=== PATIENT | male | born 1940 | race Caucasian/White ===

== ENCOUNTER 2017-12-20 12:10 | Inpatient (IN) | payer OTHER, BC ==
--- NOTE | 2017-12-20 12:23 | PDOC ---
History of Present Illness - General History Source: Patient Exam Limitations: No Limitations - History of Present Illness Initial Comments: 12/20/17 12:37 77 year old male with PMH CAD, CABG (single vessel - 09/2017), HTN, HLD, DM, blood clots, CVA (09/22/2010), presenting for dyspnea on exertion since today. Pt states he was walking to get a glass of water today at home, and felt SOB. Denies chest pain, palpitations, fever, chills, nausea, vomiting, weakness, numbness, tingling, headache. Allergies - NKDA Daughter - Ofelia David - [phone] primary family contact and caregiver Daughter - Demi David - [phone] PCP - Dr. Frost - [phone] <Adela Penn - Last Filed: 12/20/17 18:59> <Chelsie Hay - Last Filed: 12/20/17 20:11> - General Stated Complaint: SOB Time Seen by Provider: 12/20/17 12:14 Past History <Adela Penn - Last Filed: 12/20/17 18:59> <Chelsie Hay - Last Filed: 12/20/17 20:11> - Past Medical History Allergies/Adverse Reactions: Allergies Allergy/AdvReac Type Severity Reaction Status Date / Time No Known Allergies Allergy Verified 12/20/17 12:30 Home Medications: Ambulatory Orders Amlodipine Besylate 2.5 mg PO DAILY 12/20/17 Dipyridamole [Persantine -] 50 mg PO BID 12/20/17 Ferrous Sulfate 325 mg PO DAILY 12/20/17 Lisinopril 10 mg PO DAILY 12/20/17 Metformin HCl [Metformin HCl ER] 1,000 mg PO DAILY 12/20/17 Omeprazole 20 mg PO DAILY 12/20/17 Simvastatin 40 mg PO DAILY 12/20/17 Sitagliptin Phosphate [Januvia] 100 mg PO DAILY 12/20/17 Review of Systems - Review of Systems Able to Perform ROS?: Yes Comments:: 12/20/17 12:41 General: denies fever, chills, night sweats, generalized weakness. HEENT: denies sore throat, rhinorrhea, ear pain. Heart: denies chest pain, palpitations, syncope, lower extremity swelling, diaphoresis. Respiratory: admits to SOB, dyspnea on exertion. denies cough, sputum production , hematemesis. Abdomen: denies abdominal pain, nausea, vomiting, diarrhea, constipation, blood in stool. : denies dysuria, increased urinary frequency, hematuria, urinary incontinence , flank pain. Back: denies back pain, flank pain. Musculoskeletal: denies joint pain, muscle pain, joint swelling. Neurological: denies headache, dizziness, numbness, tingling, weakness. Skin: denies rash, laceration, abrasion. <Adela Penn - Last Filed: 12/20/17 18:59> *Physical Exam - Physical Exam Comments: 12/20/17 12:41 Appearance: comfortable. HEENT: head is normocephalic, atraumatic. EOMI. PERRLA. Neck: supple. Full ROM. Heart: regular rhythm. no murmurs, rubs or gallops. No pericardial friction rub. Lungs: crackles to RLL field, otherwise clear to auscultation. Abdomen: soft, nontender. normal bowel sounds. no rebound, guarding, masses. Extremities: Peripheral pulses intact and equal. No lower extremity edema. Neurological: Alert. Oriented x3. CN 2-12 grossly intact. Moves all four extremities. <Adela Penn - Last Filed: 12/20/17 18:59> - Vital Signs Last Vital Signs Temp Pulse Resp BP Pulse Ox 98.1 F 95 H 22 124/85 98 12/20/17 12:30 12/20/17 12:30 12/20/17 12:30 12/20/17 12:30 12/20/17 12:30 <Chelsie Hay - Last Filed: 12/20/17 20:11> Heart Score/ECG Review - ECG Impressions Comment:: 12/20/17 12:42 Rate 92, regular rhythm, normal axis, flipped T V4-V6. No prior EKG to compare to. <Adela Penn - Last Filed: 12/20/17 18:59> ED Treatment Course - LABORATORY CBC & Chemistry Diagram: 12/20/17 12:40 12/20/17 12:40 <Adela Penn - Last Filed: 12/20/17 18:59> - LABORATORY CBC & Chemistry Diagram: 12/20/17 12:40 12/20/17 12:40 - ADDITIONAL ORDERS Additional order review: Laboratory Results 12/20/17 12/20/17 12/20/17 16:46 12:40 12:40 PT with INR INR PTT (Actin FS) D-Dimer 1861 H Sodium Potassium Chloride Carbon Dioxide Anion Gap BUN Creatinine Creat Clearance w eGFR Random Glucose Lactic Acid 1.9 Calcium Total Bilirubin AST ALT Alkaline Phosphatase Creatine Kinase 27 L Troponin I < 0.02 B-Natriuretic Peptide Total Protein Albumin 12/20/17 12/20/17 12/20/17 12:40 12:40 12:40 PT with INR 13.90 H INR 1.23 H PTT (Actin FS) D-Dimer Sodium 135 L Potassium 4.4 Chloride 100 Carbon Dioxide 24 Anion Gap 11 BUN 16 Creatinine 1.4 H Creat Clearance w eGFR 49.27 Random Glucose 262 H Lactic Acid Calcium 8.4 L Total Bilirubin 1.0 AST 23 ALT 16 Alkaline Phosphatase 88 Creatine Kinase 29 L Troponin I < 0.02 B-Natriuretic Peptide 1400.29 H Total Protein 6.5 Albumin 2.9 L 12/20/17 12:40 PT with INR INR PTT (Actin FS) 31.9 D-Dimer Sodium Potassium Chloride Carbon Dioxide Anion Gap BUN Creatinine Creat Clearance w eGFR Random Glucose Lactic Acid Calcium Total Bilirubin AST ALT Alkaline Phosphatase Creatine Kinase Troponin I B-Natriuretic Peptide Total Protein Albumin 12/20/17 12:40 RBC 4.01 MCV 88.7 MCHC 33.0 RDW 13.6 MPV 7.7 Neutrophils % 73.7 Lymphocytes % 16.4 Monocytes % 5.6 Eosinophils % 2.7 Basophils % 1.6 <Chelsie Hay - Last Filed: 12/20/17 20:11> Medical Decision Making - Medical Decision Making 12/20/17 12:44 77 year old male with PMH single bypass surgery (09/2017), CVA, CAD, HTN, HLD, blood clots, DM BIBA for ZULETA while walking at home. Initial Vital Signs Temp Pulse Resp BP Pulse Ox 98.1 F 95 H 22 124/85 98 12/20/17 12:30 12/20/17 12:30 12/20/17 12:30 12/20/17 12:30 12/20/17 12:30 Afebrile. No tachycardia. No hypotension. No hypoxia. Pending, labs, EKG, CXR, UA/UC. 12/20/17 13:27 CBC normal - no elevated WBC, no anemia. Creatinine 1.4 BNP 1400 Troponin normal. HEART Score = 5 12/20/17 14:15 Pt walked with assistance 20 feet, ambulated well, 99% SpO2 upon returning to bed. Will page cardio for rec. 12/20/17 14:[address] Badillo, who states he will come evaluate the patient. 12/20/17 16:11 CTA - no evidence of PE. trace left pleural effusion. moderate COPD. 12/20/17 17:28 Second troponin normal. 12/20/17 17:[address] Badillo, who states from a cardiac standpoint that the patient can be discharged. Pt will be discharged with follow up instructions and strict return precautions , as well as a paper copy of XR and CT report. 12/20/17 18:15 Upon discharge, pt's daughter refused to take pt home. Stating her house is undergoing a renovation, and she has too much on her plate to take care of him. She stated that there is a crack in her driveway she is repairing and this is also a reason she cannot take him home. She stated that she is unable to take care of him, she does not care about his hospital bill, and then she walked out of the Emergency Department stating "I am not taking him home, you will have to figure it out" and left. Pt has been abandoned by his caregiver and daughter. hot tamale worker paged. 12/20/17 18:35 [facility] [employer] [facility] notified. #[phone] Pt will be admitted. 12/20/17 18:45 Pt states that his daughter has complete control and access to his bank accounts , and he is concerned she will attempt to take his money out of his accounts. He states he has two dogs at home and he is concerned she will either "kill the dogs or take them to the pound". He states the dogs were alive and well when he left his home today. 12/20/17 18:59 My shift has ended and Dr. Bui will take over care for patient until he is admitted to the hospital. <Isamar,Adela - Last Filed: 12/20/17 18:59> - Medical Decision Making 6:54pm Call placed to Dr. Kim, covering physician for Dr. Pierce the admitting doctor for Dr. Mckay, awaiting call back. 12/20/17 18:54 Second call placed to Dr. Kim, covering physician for Dr. Pierce the admitting doctor for Dr. Mckay, awaiting call back. 12/20/17 20:11 Third call placed to Dr. Kim, covering physician for Dr. Pierce the admitting doctor for Dr. Mckay, case discussed with Dr. Bui. <Chelsie Hay - Last Filed: 12/20/17 20:11> *DC/Admit/Observation/Transfer - Discharge Dispostion Decision to Admit order: Yes <Adela Penn - Last Filed: 12/20/17 18:59> - Attestations Scribe Attestion: 12/20/17 18:55 Documentation prepared by Chelsie Hay, acting as medical territory manager for Gerson English MD. <Chelsie Hay - Last Filed: 12/20/17 20:11> Diagnosis at time of Disposition: Shortness of breath, Diabetes - Discharge Dispostion Condition at time of disposition: Stable - Referrals Referrals: Glen Mckay [Primary Care Provider] -
--- NOTE | 2017-12-20 12:47 | PDOC ---
Attending Attestation - HPI HPI: "The patient is a 77 year old male with PMHx of HTN, HLD, DM, CAD, single vessel CABG (September 2017), CVA ( September 2010) who presents with dyspnea on exertion. The patient states that he was walking in his home when he became short of breath when he was trying to walk out of the house to get his scooter in order to travel down to [place]. Patient endorsed some diaphoresis & nausea at the same time, but stated it was more 'out of anger' as his daughter did not want him leaving the house as he may hurt himself. Patient states he has limited mobility, but gets around with his scooter outside of the house. Patient states that he feels fine currently. He denies any recent cough, chest pain, palpitations. Denies any fever, chills, headache, numbness or tingling. Allergies: NKDA PCP: Dr. Glen Frost Mental Health Practitioner: Dr. Iniguez - Physicial Exam PE: GENERAL: The patient is awake, alert, and fully oriented, Nontoxic - in no acute distress. HEAD: Normocephalic, atraumatic. EYES: Extraocular movements intact, sclera anicteric, conjunctiva clear. ENT: Normal voice, Moist mucous membranes. NECK: Normal range of motion, supple LUNGS: Occasional rales in R base, but otherwise clear, no respiratory distress HEART: Regular rate and rhythm, without murmur, rub or gallop. Sternal scar mid chest that is non-erythemadous, not warm to the touch. ABDOMEN: Soft, nontender, No guarding, no rebound. No CVA tenderness EXTREMITIES: Normal range of motion, no edema. NEUROLOGICAL: No facial assymetry, Normal speech, PSYCH: Normal mood, normal affect. SKIN: Warm, Dry, normal turgor. <Marley Carrion - Last Filed: 12/20/17 14:01> - Resident Resident Name: Adela Penn - ED Attending Attestation I have performed the following: I have examined & evaluated the patient, The case was reviewed & discussed with the resident, I agree w/resident's findings & plan, Exceptions are as noted - HPI HPI: 12/20/17 12:45 77y M hx of CAD sp CABG in september, presents with sob - Medical Decision Making 12/20/17 14:26 ddx includes chf, anginal equivalnet/acs, metabolic derangement labs reviewd - unremarkable beside elevated dimer will obtain cta to r/o pe pt ambulated here without signs of hypoxia or dyspenea cxr clear will obtain 2nd trop will dw cardiology regarding disposition <Gerson English - Last Filed: 12/20/17 16:26> Heart Score/ECG Review - ECG Impressions Comment:: 12/20/17 16:25 Twelve-lead EKG was performed and reviewed by me. There is normal sinus rhythm with a normal rate. The axis is normal. T wave inversion in the lateral leads <Gerson English - Last Filed: 12/20/17 16:26>
[2017-12-20 13:03] LABS: BASO % 1.6 % (0-2.0); EOS % 2.7 % (0-4.5); HEMATOCRIT 35.6 % (35.4-49); HEMOGLOBIN 11.8 GM/dL (11.7-16.9); LYMPH % 16.4 % (8-40); MCH 29.3 pg (25.7-33.7); MEAN CELL VOLUME 88.7 fl (80-96); MEAN PLT VOLUME 7.7 fl (7.5-11.1); MONO % 5.6 % (3.8-10.2); NEUT % 73.7 % (42.8-82.8); PLATELET COUNT 309 K/MM3 (134-434); RBC 4.01 M/mm3 (4.00-5.60); RDW 13.6 % (11.9-15.9); WHITE BLOOD COUNT 9.2 K/mm3 (4.0-10.0)
[2017-12-20 13:15] LABS: INR 1.23 (0.83-1.09); PROTHROMBIN TIME (PATIENT) 13.9 SEC (9.7-13.0)
[2017-12-20 13:28] LABS: ALBUMIN 2.9 g/dl (3.4-5.0); ANION GAP 11 MMOL/L (8-16); BLOOD UREA NITROGEN 16 mg/dL (7-18); CALCIUM 8.4 mg/dL (8.5-10.1); CHLORIDE 100 mmol/L (98-107); CO2 24 mmol/L (21-32); CREATININE 1.4 mg/dL (0.7-1.3); GLUCOSE,RANDOM 262 mg/dL (74-106); SGPT/ALT 16 U/L (12-78); SODIUM 135 mmol/L (136-145); TOT PROT 6.5 g/dl (6.4-8.2)
[2017-12-20 13:29] LABS: ALK PHOS 88 U/L (45-117); POTASSIUM 4.4 mmol/L (3.5-5.1); SGOT/AST 23 U/L (15-37)
[2017-12-20 13:38] LABS: N-TERMINAL BNP 1400.29 pg/ml (5-450)
--- NOTE | 2017-12-20 19:11 | PDOC ---
*Physical Exam - Vital Signs Last Vital Signs Temp Pulse Resp BP Pulse Ox 98.1 F 95 H 22 124/85 98 12/20/17 12:30 12/20/17 12:30 12/20/17 12:30 12/20/17 12:30 12/20/17 12:30 ED Treatment Course - LABORATORY CBC & Chemistry Diagram: 12/20/17 12:40 12/20/17 12:40 - ADDITIONAL ORDERS Additional order review: Laboratory Results 12/20/17 12/20/17 12/20/17 16:46 12:40 12:40 PT with INR INR PTT (Actin FS) D-Dimer 1861 H Sodium Potassium Chloride Carbon Dioxide Anion Gap BUN Creatinine Creat Clearance w eGFR Random Glucose Lactic Acid 1.9 Calcium Total Bilirubin AST ALT Alkaline Phosphatase Creatine Kinase 27 L Troponin I < 0.02 B-Natriuretic Peptide Total Protein Albumin 12/20/17 12/20/17 12/20/17 12:40 12:40 12:40 PT with INR 13.90 H INR 1.23 H PTT (Actin FS) D-Dimer Sodium 135 L Potassium 4.4 Chloride 100 Carbon Dioxide 24 Anion Gap 11 BUN 16 Creatinine 1.4 H Creat Clearance w eGFR 49.27 Random Glucose 262 H Lactic Acid Calcium 8.4 L Total Bilirubin 1.0 AST 23 ALT 16 Alkaline Phosphatase 88 Creatine Kinase 29 L Troponin I < 0.02 B-Natriuretic Peptide 1400.29 H Total Protein 6.5 Albumin 2.9 L 12/20/17 12:40 PT with INR INR PTT (Actin FS) 31.9 D-Dimer Sodium Potassium Chloride Carbon Dioxide Anion Gap BUN Creatinine Creat Clearance w eGFR Random Glucose Lactic Acid Calcium Total Bilirubin AST ALT Alkaline Phosphatase Creatine Kinase Troponin I B-Natriuretic Peptide Total Protein Albumin 12/20/17 12:40 RBC 4.01 MCV 88.7 MCHC 33.0 RDW 13.6 MPV 7.7 Neutrophils % 73.7 Lymphocytes % 16.4 Monocytes % 5.6 Eosinophils % 2.7 Basophils % 1.6 Medical Decision Making - Medical Decision Making 12/20/17 19:07 Patient had [address] Badillo saw the patient and said he can be discharged home. However, it became clear that the daughter did not want to take him home. Initially she said it was because she was working on the house, she said the driveway was torn up, she said there was a problem with his medications and his prescriptions , she said that maybe he would fall at home and then she basically said, I'm not taking him home and left the emergency department. Patient is fearful that his daughter will either kill his 2 dogs OR [facility] and also he is fearful his daughter will drain his bank accounts while he is here 12/20/17 19:09 12/20/17 19:29 The daughter returned to ER much calmer and states she will get together his medication list .She has spoken to the nursing supervisor engine assembly 12/21/17 02:07 *DC/Admit/Observation/Transfer Diagnosis at time of Disposition: Shortness of breath Diabetes Qualifiers: Diabetes mellitus type: type 2 Diabetes mellitus terminal operator insulin use: without nursing home use Diabetes mellitus complication status: with hyperglycemia Qualified Code(s): E11.65 - Type 2 diabetes mellitus with hyperglycemia - Discharge Dispostion Condition at time of disposition: Stable Decision to Admit order: Yes - Referrals - Patient Instructions - Post Discharge Activity
[2017-12-21 02:04] VITALS: BMI 20.7
[2017-12-21] MEDS ORDERED: sitaGLIPtin PHOSPHATE 50 MG TABLET PO SCH (07:00)
[2017-12-21] MEDS ORDERED: TORSEMIDE 5 MG TABLET PO SCH (10:00)
[2017-12-21] MEDS ORDERED: FOLIC ACID 1 MG TABLET (FP) PO SCH (10:00)
[2017-12-21] MEDS ORDERED: ASPIRIN 81 MG CHEWABLE TABLETS PO SCH (10:00)
[2017-12-21] MEDS ORDERED: PANTOPRAZOLE 40 MG TABLET (FP) PO SCH (10:00)
[2017-12-21] MEDS ORDERED: DOCUSATE SODIUM 100 MG CAPSULE (FP) PO SCH (10:00)
[2017-12-21] MEDS ORDERED: metoPROLOL SUCCINATE 25 MG TAB.SR.24H (FP) PO SCH (10:00)
[2017-12-21] MEDS ORDERED: PT OWN MED DRAWER 7, Y5N ONE (10:12)
--- NOTE | 2017-12-21 16:31 | EKG ---
Test Reason : Blood Pressure : / mmHG Vent. Rate : 092 BPM Atrial Rate : 092 BPM P-R Int : 146 ms QRS Dur : 092 ms QT Int : 358 ms P-R-T Axes : 032 060 131 degrees QTc Int : 442 ms NORMAL SINUS RHYTHM T WAVE ABNORMALITY, CONSIDER LATERAL ISCHEMIA ABNORMAL ECG WHEN COMPARED WITH ECG OF 29-OCT-2010 19:32, VENT. RATE HAS INCREASED BY [address] NOW DEPRESSED IN ANTERIOR LEADS T WAVE INVERSION NOW EVIDENT IN ANTEROLATERAL LEADS Confirmed by Ronald Munoz ([id number]) on 12/21/2017 4:30:47 PM Referred By: Confirmed By:Ronald Munoz
[2017-12-21 17:01] VITALS: BP 130/68; PULSE 67; TEMP 98.2
--- NOTE | 2017-12-21 17:32 | HP ---
Admitting History and Physical - Admission History of Present Illness: "The patient is a 77 year old male with PMHx of HTN, HLD, DM, CAD, single vessel CABG (September 2017), CVA ( September 2010) who presents with dyspnea on exertion. The patient states that he was walking in his home when he became short of breath when he was trying to walk out of the house to get his scooter in order to travel down to [place]. Patient endorsed some diaphoresis & nausea at the same time, but stated it was more 'out of anger' as his daughter did not want him leaving the house as he may hurt himself. Patient states he has limited mobility, but gets around with his scooter outside of the house. Patient states that he feels fine currently. He denies any recent cough, chest pain, palpitations. Denies any fever, chills, headache, numbness or tingling. Allergies: NKDA PCP: Dr. Glen Frost Glassware Verifier: Dr. Iniguez History Source: Patient, Medical Record, Caregiver Limitations to Obtaining History: No Limitations - Past Medical History Cardiovascular: Yes: CAD, CHF, HTN, Hyperlipdemia, [place] Pulmonary: Yes: COPD Gastrointestinal: Yes: GI Bleed - Past Surgical History Past Surgical History: Yes: CABG (2017) - Smoking History Smoking history: Former smoker Have you smoked in the past 12 months: No If you are a former smoker, when did you quit?: 6months - Alcohol/Substance Use Hx Alcohol Use: No - Social History Usual Living Arrangement: Yes: With Child ADL: Family Assistance History of Recent Travel: No Home Medications - Allergies Allergies/Adverse Reactions: Allergies Allergy/AdvReac Type Severity Reaction Status Date / Time No Known Allergies Allergy Verified 12/20/17 12:30 - Home Medications Home Medications: Ambulatory Orders Aspirin 81 mg PO DAILY 12/20/17 Docusate Sodium [Colace] 100 mg PO DAILY 12/20/17 Folic Acid 1 mg PO DAILY 12/20/17 Metoprolol Succinate [Toprol Xl] 50 mg PO DAILY MDD 25mg (2tabs daily) 12/20/17 Nitroglycerin Sublingual [Nitrostat -] 0.4 mg SL PRN PRN 12/20/17 Omeprazole 40 mg PO DAILY 12/20/17 Simvastatin 80 mg PO DAILY 12/20/17 Sitagliptin Phosphate [Januvia] 50 mg PO DAILY 12/20/17 Torsemide [Demadex -] 5 mg PO DAILY 12/20/17 Tobramycin 0.3% Ophth Soln [Tobrex Ophthalmic Solution -] 1 drop OD Q4HWA 7 Days #2.5 ml 12/21/17 Physical Examination Vital Signs: Vital Signs Temperature 98.2 F 12/21/17 16:15 Pulse Rate 67 12/21/17 16:15 Respiratory Rate 18 12/21/17 16:15 Blood Pressure 130/68 12/21/17 16:15 O2 Sat by Pulse Oximetry (%) 98 12/21/17 09:00 Labs: CBC, BMP 12/20/17 12:40 12/20/17 12:40 Problem List - Problems (1) COPD (chronic obstructive pulmonary disease) Code(s): J44.9 - CHRONIC OBSTRUCTIVE PULMONARY DISEASE, UNSPECIFIED (2) Diabetes Code(s): E11.9 - TYPE 2 DIABETES MELLITUS WITHOUT COMPLICATIONS Qualifiers: Diabetes mellitus type: type 2 Diabetes mellitus chcf insulin use: without chcf use Diabetes mellitus complication status: with hyperglycemia Qualified Code(s): E11.65 - Type 2 diabetes mellitus with hyperglycemia (3) Shortness of breath Code(s): R06.02 - SHORTNESS OF BREATH Assessment/Plan 77 year old male with PMH single bypass surgery (09/2017), CVA, CAD, HTN, HLD, blood clots, DM BIBA for ZULETA while walking at home. Patient evaluated in ER by Cardiology and discharged home. Daughter came to ER --however refused to take him home. She left the hospital and was later contacted by hospital -- she further explains she was relocating her father from 2nd floor to 1st floor of their home and did not have appropriate conditions for his return home yesterday She contacted hospital case liner and agrees to take father home. She has been fathers skin care specialist for yrs and seens attentive and responsive to her needs over the yrs. She is followed at our office by Dr Mckay Chart reviewed and case discussed with nursing staff / case liner / and Dr Mckay - Patient safe to return home today He is to continue with same meds and follow up with Dr Mckay
[2017-12-21] MEDS ORDERED: TOBRAMYCIN 0.3% OPHTH SOLN 5 ML BOTTLE OD SCH (18:00)
--- NOTE | 2017-12-21 18:14 | CON.CARD ---
Consult Consult Specialty:: cardiology Reason for Consultation:: recent CABG; now with dyspnea on exertion - History of Present Illness Chief Complaint: Pt A&Ox3; no chest pain; presently not dyspneic. 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 Pt states he was walking to get a glass of water today at home, and felt SOB. Denies chest pain, palpitations, fever, chills, nausea, vomiting, weakness, numbness, tingling, headache. - History Source History Provided By: Patient, Family Member, Medical Record Limitations to Obtaining History: Poor Historian - Past Medical History Cardio/Vascular: Yes: CAD, CHF, HTN, Hyperlipdemia, [place] Pulmonary: Yes: COPD Gastrointestinal: Yes: GI Bleed - Past Surgical History Past Surgical History: Yes: CABG (2017) - Alcohol/Substance Use Hx Alcohol Use: No - Smoking History Smoking history: Former smoker Have you smoked in the past 12 months: No If you are a former smoker, when did you quit?: 6months - Social History ADL: Family Assistance History of Recent Travel: No Home Medications - Allergies Allergies/Adverse Reactions: Allergies Allergy/AdvReac Type Severity Reaction Status Date / Time No Known Allergies Allergy Verified 12/20/17 12:30 - Home Medications Home Medications: Ambulatory Orders Aspirin 81 mg PO DAILY 12/20/17 Docusate Sodium [Colace] 100 mg PO DAILY 12/20/17 Folic Acid 1 mg PO DAILY 12/20/17 Metoprolol Succinate [Toprol Xl] 50 mg PO DAILY MDD 25mg (2tabs daily) 12/20/17 Nitroglycerin Sublingual [Nitrostat -] 0.4 mg SL PRN PRN 12/20/17 Omeprazole 40 mg PO DAILY 12/20/17 Simvastatin 80 mg PO DAILY 12/20/17 Sitagliptin Phosphate [Januvia] 50 mg PO DAILY 12/20/17 Torsemide [Demadex -] 5 mg PO DAILY 12/20/17 Tobramycin 0.3% Ophth Soln [Tobrex Ophthalmic Solution -] 1 drop OD Q4HWA 7 Days #2.5 ml 12/21/17 Family Disease History - Family Disease History Family History: Denies Review of Systems - Review of Systems Constitutional: reports: No Symptoms Eyes: reports: No Symptoms HENT: reports: Hearing Loss (from exposure to artillery guns) Cardiovascular: reports: No Symptoms Respiratory: reports: SOB on Exertion Gastrointestinal: reports: No Symptoms Genitourinary: reports: No Symptoms Breasts: reports: No Symptoms Reported Musculoskeletal: reports: Muscle Weakness Neurological: reports: Unsteady Gait, Weakness Psychiatric: reports: Anxiety, Other (?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; he says "I don't want to talk about it") - Risk Factors Known Risk Factors: Yes: Age, Gender, Hypercholesterolemia, Hypertension, Physical Inactivity, Smoking (former), Other (CAD-->CABG 09/2017) Vital Signs: Vital Signs Temperature 98.2 F 12/21/17 16:15 Pulse Rate 67 12/21/17 16:15 Respiratory Rate 18 12/21/17 16:15 Blood Pressure 130/68 12/21/17 16:15 O2 Sat by Pulse Oximetry (%) 98 12/21/17 09:00 Constitutional: Yes: Calm Eyes: Yes: WNL HENT: Yes: Other (hard of hearing) Neck: Yes: WNL Respiratory: Yes: Regular, Diminished Gastrointestinal: Yes: Soft Renal/: No: Anuria Cardiovascular: Yes: Regular Rate and Rhythm JVD: No Carotid Bruit: No PMI: Non-Displaced Heart Sounds: Yes: S1, S2 Murmur: Yes: Systolic Murmur, Grade 2 Musculoskeletal: Yes: Muscle Weakness Extremities: Yes: Cool Edema: No Peripheral Pulses WNL: Yes Integumentary: Yes: Laceration (right forearm (his dog "scratched him") Neurological: Yes: WNL - Other Data Labs, Other Data: CBC, BMP 12/20/17 12:40 12/20/17 12:40 INR, PTT INR 1.23 (0.83-1.09) H 12/20/17 12:40 Problem List - Problems (1) Diastolic CHF Assessment/Plan: No JVD. ELevated JVP. CXR: no acute pathology. CT chest: moderately severe COPD; no PE. On metoprolol ER. Consider ACEI or RB (HTN; DM). F/u BUn/Cr, electrolytes, daily weight, Is and Os. Pulmonary f/u for COPD. Code(s): I50.30 - UNSPECIFIED DIASTOLIC (CONGESTIVE) HEART FAILURE (2) Hx of CABG Assessment/Plan: f/u records of surgery , which was done 10/04, and was one-vessel. Code(s): Z95.1 - PRESENCE OF AORTOCORONARY BYPASS GRAFT (3) COPD (chronic obstructive pulmonary disease) Code(s): J44.9 - CHRONIC OBSTRUCTIVE PULMONARY DISEASE, UNSPECIFIED (4) Shortness of breath Code(s): R06.02 - SHORTNESS OF BREATH
--- NOTE | 2017-12-21 20:20 | PN ---
Progress Note, Physician Chief Complaint: Pt A&Ox3; no complaints of ZULETA or chest discomfort. 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 Pt states he was walking to get a glass of water today at home, and felt SOB. Denies chest pain, palpitations, fever, chills, nausea, vomiting, weakness, numbness, tingling, headache. - Current Medication List Current Medications: Active Medications Aspirin (Asa -) 81 mg PO DAILY COUNT INCLUDES [facility] Last Admin: 12/21/17 10:15 Dose: 81 mg Atorvastatin Calcium (Lipitor -) 40 mg PO [facility] Docusate Sodium (Colace -) 100 mg PO DAILY COUNT INCLUDES [facility] Last Admin: 12/21/17 10:14 Dose: 100 mg Folic Acid (Folic Acid -) 1 mg PO DAILY COUNT INCLUDES THE [facility] Last Admin: 12/21/17 10:14 Dose: 1 mg Metoprolol Succinate (Toprol Xl -) 50 mg PO DAILY COUNT INCLUDES [facility] Last Admin: 12/21/17 10:15 Dose: 50 mg Pantoprazole Sodium (Protonix -) 40 mg PO DAILY COUNT INCLUDES [facility] Last Admin: 12/21/17 10:15 Dose: 40 mg Sitagliptin Phosphate (Januvia -) 50 mg PO 0700 COUNT INCLUDES THE [facility] Last Admin: 12/21/17 06:26 Dose: 50 mg Tobramycin Sulfate (Tobrex Ophthalmic Solution -) 1 drop OD Q4HWA COUNT INCLUDES THE [facility] Stop: 12/23/17 23:59 Last Admin: 12/21/17 19:30 Dose: 1 drop Torsemide (Demadex -) 5 mg PO DAILY COUNT INCLUDES [facility] Last Admin: 12/21/17 10:15 Dose: 5 mg - Objective Vital Signs: Vital Signs Temperature 98.2 F 12/21/17 16:15 Pulse Rate 67 12/21/17 16:15 Respiratory Rate 18 12/21/17 16:15 Blood Pressure 130/68 12/21/17 16:15 O2 Sat by Pulse Oximetry (%) 98 12/21/17 09:00 Constitutional: Yes: Calm Eyes: Yes: WNL HENT: Yes: WNL Neck: Yes: WNL Cardiovascular: Yes: Regular Rate and Rhythm Respiratory: Yes: Diminished Gastrointestinal: Yes: Soft ...Rectal Exam: Yes: Deferred Genitourinary: No: Anuria Musculoskeletal: Yes: Muscle Weakness Extremities: Yes: Cool Edema: No Peripheral Pulses WNL: Yes Integumentary: Yes: WNL Neurological: Yes: Alert, Oriented, Weakness Psychiatric: Yes: Alert, Oriented Labs: CBC, BMP 12/20/17 12:40 12/20/17 12:40 INR, PTT INR 1.23 (0.83-1.09) H 12/20/17 12:40 Problem List - Problems (1) Diastolic CHF Assessment/Plan: No JVD. CXR: no acute pathology. CT chest: moderately severe COPD; no PE. Continue metoprolol ER. Consider ACEI or RB (HTN; DM). F/u BUn/Cr, electrolytes, daily weight, Is and Os. Pulmonary f/u for COPD.5 From a cardiac standpoint, pt may be followed as oupatient. Code(s): I50.30 - UNSPECIFIED DIASTOLIC (CONGESTIVE) HEART FAILURE (2) Hx of CABG Assessment/Plan: f/u records of surgery , which was done 10/04, and was one-vessel. Code(s): Z95.1 - PRESENCE OF AORTOCORONARY BYPASS GRAFT (3) COPD (chronic obstructive pulmonary disease) Code(s): J44.9 - CHRONIC OBSTRUCTIVE PULMONARY DISEASE, UNSPECIFIED
[2017-12-21 20:27] LABS: CHOLESTEROL 105 mg/dL (50-200); HDL CHOLESTEROL 26 mg/dL (40-60); TRIGLYCERIDES 125 mg/dL (35-160)
[2017-12-21] MEDS ORDERED: ATORVASTATIN CA 40 MG TABLET (FP) PO SCH (22:00)
== END 2017-12-21 21:24 | disposition home or self-care (01) | DRG 638 ==
LOC: JER 12:10 → JERBED 20:14 → J8W 12-21 01:08
PROVIDERS: ADMIT Family Medicine; ATTEND Family Medicine
DX: E11.65 Type 2 diabetes mellitus with hyperglycemia (principal); I50.30 Unspecified diastolic (congestive) heart failure; Z95.1 Presence of aortocoronary bypass graft; I11.0 Hypertensive heart disease with heart failure; E78.5 Hyperlipidemia, unspecified; I25.10 Atherosclerotic heart disease of native coronary artery without angina pectoris; J44.9 Chronic obstructive pulmonary disease, unspecified; R06.02 Shortness of breath
CPT/HCPCS: 36415; 71045-TC-FY; 71275-TC; 80053; 80061; 82550; 83605; 83721; 83880; 84484; 85025; 85379; 85610; 85730; 93005; 93010; 97116-GP; 97162-GP; 99284-25

== ENCOUNTER 2018-01-05 11:56 | Inpatient (IN) | payer OTHER, BC ==
--- NOTE | 2018-01-05 14:10 | PDOC ---
History of Present Illness - General Chief Complaint: Constipation Stated Complaint: Pain, Acute Time Seen by Provider: 01/05/18 13:27 - History of Present Illness Initial Comments: The patient is a 77M with a history of HTN and T2DM who presents with 4 weeks of pain with defecation and reported constipation. The patient endorses diffuse abdominal pain that is described as crampy. He also endorses sharp pain with defecation that occurs at the time of defecation, not before or after. The patient endorses associated nausea and NBNB V x2 today. Patient endorses history of constipation Patient denies use of opioid medications at home The patient lives at home with is daughter who has his medication list. He does not know his medications or his daughter's phone number Patient endorses being on a blood thinner but does not know which one 01/05/18 14:07 Past History - Past Medical History Allergies/Adverse Reactions: Allergies Allergy/AdvReac Type Severity Reaction Status Date / Time No Known Allergies Allergy Verified 01/05/18 12:14 Home Medications: Ambulatory Orders Aspirin 81 mg PO DAILY 12/20/17 Docusate Sodium [Colace] 100 mg PO DAILY 12/20/17 Folic Acid 1 mg PO DAILY 12/20/17 Metoprolol Succinate [Toprol Xl] 50 mg PO DAILY MDD 25mg (2tabs daily) 12/20/17 Nitroglycerin Sublingual [Nitrostat -] 0.4 mg SL PRN PRN 12/20/17 Omeprazole 40 mg PO DAILY 12/20/17 Simvastatin 80 mg PO DAILY 12/20/17 Sitagliptin Phosphate [Januvia] 50 mg PO DAILY 12/20/17 Torsemide [Demadex -] 5 mg PO DAILY 12/20/17 Tobramycin 0.3% Ophth Soln [Tobrex Ophthalmic Solution -] 1 drop OD Q4HWA 7 Days #2.5 ml 12/21/17 Cardiac Disorders: Yes (CAD - SINGLE BYPASS) CVA: Yes (2010) COPD: No Diabetes: Yes (NIDDM) HTN: Yes Hypercholesterolemia: Yes - Surgical History Cardiac Surgery: Yes (SINGLE BYPASS) - Immunization History Immunization Up to Date: Yes - Suicide/Smoking/Psychosocial Hx Smoking History: Former smoker Have you smoked in the past 12 months: No If you are a former smoker, when did you quit?: 6months Information on smoking cessation initiated: No Hx Alcohol Use: No Drug/Substance Use Hx: No Substance Use Type: None Review of Systems - Review of Systems Able to Perform ROS?: Yes Comments:: GENERAL/CONSTITUTIONAL: No fever or chills. No weakness HEAD, EYES, EARS, NOSE AND THROAT: No change in vision. No ear pain or discharge. No sore throat CARDIOVASCULAR: No chest pain or shortness of breath RESPIRATORY: No cough, wheezing, or hemoptysis GASTROINTESTINAL: per HPI GENITOURINARY: No dysuria, frequency, or change in urination MUSCULOSKELETAL: No joint or muscle swelling or pain. No neck or back pain SKIN: No rash NEUROLOGIC: No headache, vertigo, loss of consciousness, or change in strength/ sensation ENDOCRINE: No increased thirst. No abnormal weight change HEMATOLOGIC/LYMPHATIC: No anemia, easy bleeding, or history of blood clots ALLERGIC/IMMUNOLOGIC: No hives or skin allergy 01/05/18 19:54 Is the patient limited [place] proficient: No *Physical Exam - Vital Signs Last Vital Signs Temp Pulse Resp BP Pulse Ox 98.6 F 82 20 104/64 99 01/05/18 12:15 01/05/18 12:15 01/05/18 12:15 01/05/18 12:15 01/05/18 12:15 - Physical Exam Comments: GENERAL: Awake, alert, and fully oriented, in no acute distress HEAD: No signs of trauma, normocephalic, atraumatic EYES: PERRLA, EOMI, sclera anicteric, conjunctiva clear ENT: Difficulty hearing (baseline per patient), nares patent, oropharynx clear without exudates. Moist mucosa NECK: Normal ROM, supple, no lymphadenopathy LUNGS: No distress, speaks full sentences, clear to auscultation bilaterally HEART: Regular rate and rhythm, normal S1 and S2, no murmurs appreciated, peripheral pulses normal and equal bilaterally ABDOMEN: Soft, RLQ and suprapubic TTP without rebound or guarding, normoactive bowel sounds RECTAL: Patient w/ soft stool, no external hemorrhoid EXTREMITIES : no edema. No clubbing or cyanosis NEUROLOGICAL: Cranial nerves II through XII grossly intact. Normal speech, no focal sensorimotor deficits SKIN: Warm, Dry, normal turgor 01/05/18 14:10 ED Treatment Course - LABORATORY CBC & Chemistry Diagram: 01/08/18 07:15 01/08/18 07:15 - RADIOLOGY Radiology Studies Ordered: Category Date Time Status ABDOMEN & PELVIS CT WITH CONTR [CT] Stat CT Scan 01/05/18 13:29 Ordered Medical Decision Making - Medical Decision Making The patient is a 77M who presents for evaluation of 4 weeks of constipation and pain with BMs Ddx: Diverticulitis +/- perforation, UTI, sepsis, considered colitis, bowel perforation, SBO, fecal impaction ED Course CMP, CBC, Lactate, UA CT A&P w/ IV and PO contrast 01/05/18 14:09 Lactate 3.[address] notable for extensive sigmoid diverticulosis w/o diverticulitis, mild diffuse colonic distention, rectal distention and with concentric rectal wall thickening, s/p anastasiia, mild CBD dilation, L external iliac a. stent with partial occlusion, and a 2.3cmx1.4cm R acetabular subcortical focus. Patient also with bladder wall thickening with likely cystitis Plan for admission for resuscitation, IV abx, and fecal retention Likely with UTI w/ sepsis; Diverticulosis with possible diverticulitis GI consult 01/05/18 17:36 White for urinary retention and for UA UCx Urology consult 01/05/18 19:45 *DC/Admit/Observation/Transfer Diagnosis at time of Disposition: Lactic acid acidosis, Pain associated with defecation, Urinary retention Sepsis Qualifiers: Sepsis type: sepsis due to unspecified organism Qualified Code(s): A41.9 - Sepsis, unspecified organism - Discharge Dispostion Condition at time of disposition: Guarded Decision to Admit order: Yes - Referrals - Patient Instructions - Post Discharge Activity
[2018-01-05 14:27] LABS: HEMATOCRIT 38.3 % (35.4-49); HEMOGLOBIN 12.5 GM/dL (11.7-16.9); MCH 28.5 pg (25.7-33.7); MCHC 32.7 g/dl (32.0-35.9); MEAN CELL VOLUME 87.3 fl (80-96); MEAN PLT VOLUME 7.3 fl (7.5-11.1); PLATELET COUNT 351 K/MM3 (134-434); RBC 4.39 M/mm3 (4.00-5.60); RDW 14.1 % (11.9-15.9); WHITE BLOOD COUNT 20.5 K/mm3 (4.0-10.0)
[2018-01-05 14:56] LABS: ALBUMIN 3.2 g/dl (3.4-5.0); ANION GAP 8 MMOL/L (8-16); BILIRUBIN,TOTAL 0.5 mg/dL (0.2-1); BLOOD UREA NITROGEN 13 mg/dL (7-18); CALCIUM 9.1 mg/dL (8.5-10.1); CHLORIDE 100 mmol/L (98-107); CO2 27 mmol/L (21-32); CREATININE 1.5 mg/dL (0.55-1.3); GLUCOSE,RANDOM 203 mg/dL (74-106); POTASSIUM 4.8 mmol/L (3.5-5.1); SGOT/AST 22 U/L (15-37); SGPT/ALT 17 U/L (13-61); SODIUM 135 mmol/L (136-145); TOT PROT 6.9 g/dl (6.4-8.2)
[2018-01-05 14:57] LABS: ALK PHOS 104 U/L (45-117)
[2018-01-05] MEDS ORDERED: SODIUM CHLORIDE 0.9% 500 ML INFUS.BAG IV ONE (15:11)
[2018-01-05] MEDS ORDERED: ACETAMINOPHEN 1000 MG/100 ML VIAL (NON FORMULARY) IVPB ONE (15:11)
[2018-01-05] MEDS ORDERED: ACETAMINOPHEN INJECTION 100 ML IVPB ONE (15:12)
--- NOTE | 2018-01-05 15:16 | PDOC ---
Attending Attestation - Resident Resident Name: IvettealeciaTristan - ED Attending Attestation I have performed the following: I have examined & evaluated the patient, The case was reviewed & discussed with the resident, I agree w/resident's findings & plan, Exceptions are as noted - HPI HPI: 01/05/18 15:06 Mr Hernandez presents to the ER with a complaint of abdominal pain Pt reports constipation for the past 4 weeks He reports severe abdominal pain No fevers or chills - Physicial Exam PE: 01/05/18 15:20 Pt appears uncomfortable RRR CTA Abd diffusely tender, no involuntary guarding, no rebound Rectal examination per Resident - Medical Decision Making 01/05/18 15:20 Pt presents to the ER with abdominal pain and constipation concerning for DD is broad and included - diverticulitis - colitis - volvulous - SBO Will do: Labs CT po and IV contrast Tylenol for pain 01/05/18 15:22 Laboratory Tests 01/05/18 01/05/18 01/05/18 13:35 14:15 14:15 WBC 20.5 H Hgb 12.5 Hct 38.3 Plt Count 351 Sodium 135 L Potassium 4.8 Chloride 100 Carbon Dioxide 27 BUN 13 Creatinine 1.5 H Random Glucose 203 H Lactic Acid 3.1 H* 01/05/18 15:22 Pt s/p Bowel movement Awaiting CT
[2018-01-05] MEDS ORDERED: PIPERACILLIN/TAZOB 3.375 GM 3.375 GM in DEXTROSE 5%-WATER - 50 ML IVPB ONE (17:46)
[2018-01-05] MEDS ORDERED: PIPERACILLIN/TAZOB 3.375 GM 3.375 GM/50 ML BAG IVPB ONE (20:03)
[2018-01-05 20:06] LABS: URINE APPEARANCE TURBID; URINE BILIRUBIN NEGATIVE (<2.0 mg/dL); URINE COLOR YELLOW; URINE GLUCOSE (UA) NEGATIVE (NEGATIVE); URINE KETONE NEGATIVE (NEGATIVE); URINE NITRITE POSITIVE (NEGATIVE); URINE UROBILINOGEN NEGATIVE mg/dL (0.2-1.0)
[2018-01-05 20:08] LABS: URINE LEUK ESTERASE 2+ (NEGATIVE); URINE PROTEIN 2+ (NEGATIVE)
[2018-01-05 20:10] LABS: EPI CELLS MODERATE /HPF (FEW); URINE MUCUS FEW
--- NOTE | 2018-01-05 23:40 | HP ---
Admitting History and Physical - Admission History of Present Illness: The patient is a 77M with a history of HTN and T2DM who presents with 4 weeks of pain with defecation and reported constipation. The patient endorses diffuse abdominal pain that is described as crampy. He also endorses sharp pain with defecation that occurs at the time of defecation, not before or after. The patient endorses associated nausea and NBNB V x2 today. Patient endorses history of constipation Patient denies use of opioid medications at home The patient lives at home with is daughter who has his medication list. He does not know his medications or his daughter's phone number Patient endorses being on a blood thinner but does not know which one History Source: Patient, Medical Record Limitations to Obtaining History: Poor Historian - Past Medical History Cardiovascular: Yes: CAD, CHF, HTN, Hyperlipdemia, [place] Pulmonary: Yes: COPD Gastrointestinal: Yes: GI Bleed - Past Surgical History Past Surgical History: Yes: CABG (2017) - Smoking History Smoking history: Former smoker Have you smoked in the past 12 months: No If you are a former smoker, when did you quit?: 6months - Alcohol/Substance Use Hx Alcohol Use: No - Social History ADL: Family Assistance History of Recent Travel: No Home Medications - Allergies Allergies/Adverse Reactions: Allergies Allergy/AdvReac Type Severity Reaction Status Date / Time No Known Allergies Allergy Verified 01/05/18 12:14 - Home Medications Home Medications: Ambulatory Orders Aspirin 81 mg PO DAILY 12/20/17 Docusate Sodium [Colace] 100 mg PO DAILY 12/20/17 Folic Acid 1 mg PO DAILY 12/20/17 Metoprolol Succinate [Toprol Xl] 50 mg PO DAILY MDD 25mg (2tabs daily) 12/20/17 Nitroglycerin Sublingual [Nitrostat -] 0.4 mg SL PRN PRN 12/20/17 Omeprazole 40 mg PO DAILY 12/20/17 Simvastatin 80 mg PO DAILY 12/20/17 Sitagliptin Phosphate [Januvia] 50 mg PO DAILY 12/20/17 Torsemide [Demadex -] 5 mg PO DAILY 12/20/17 Tobramycin 0.3% Ophth Soln [Tobrex Ophthalmic Solution -] 1 drop OD Q4HWA 7 Days #2.5 ml 12/21/17 Physical Examination Vital Signs: Vital Signs Temperature 98.7 F 01/05/18 22:19 Pulse Rate 55 L 01/05/18 22:19 Respiratory Rate 20 01/05/18 22:19 Blood Pressure 146/77 01/05/18 22:19 O2 Sat by Pulse Oximetry (%) 96 01/05/18 20:00 Labs: CBC, BMP 01/05/18 14:15 01/05/18 14:15 Assessment/Plan CT notable for extensive sigmoid diverticulosis w/o diverticulitis, mild diffuse colonic distention, rectal distention and with concentric rectal wall thickening, s/p anastasiia, mild CBD dilation, L external iliac a. stent with partial occlusion, and a 2.3cmx1.4cm R acetabular subcortical focus. Patient also with bladder wall thickening with likely cystitis
[2018-01-05] MEDS ORDERED: NITROGLYCERIN SUBLINGUAL 1/150 0.4 MG TAB SL PRN (23:51)
[2018-01-06] MEDS: sitaGLIPtin PHOSPHATE 50 MG TABLET PO SCH (06:40)
[2018-01-06] MEDS: DOCUSATE SODIUM 100 MG CAPSULE (FP) PO SCH ×3 (06:40→21:26)
[2018-01-06 07:45] LABS: HEMATOCRIT 36.2 % (35.4-49); MCH 28.6 pg (25.7-33.7); MCHC 33.1 g/dl (32.0-35.9); MEAN CELL VOLUME 86.3 fl (80-96); MEAN PLT VOLUME 7.2 fl (7.5-11.1); PLATELET COUNT 296 K/MM3 (134-434); RDW 14.5 % (11.9-15.9); WHITE BLOOD COUNT 14.2 K/mm3 (4.0-10.0)
[2018-01-06] MEDS ORDERED: ACETAMINOPHEN 325 MG TABLET (FP) PO ONE (08:15)
[2018-01-06 08:57] LABS: ALBUMIN 2.8 g/dl (3.4-5.0); ANION GAP 8 MMOL/L (8-16); BLOOD UREA NITROGEN 10 mg/dL (7-18); CALCIUM 8.2 mg/dL (8.5-10.1); CHLORIDE 104 mmol/L (98-107); CO2 22 mmol/L (21-32); GLUCOSE,RANDOM 87 mg/dL (74-106); SODIUM 134 mmol/L (136-145)
[2018-01-06 09:01] LABS: ALK PHOS 93 U/L (45-117); BILIRUBIN,TOTAL 0.8 mg/dL (0.2-1); SGOT/AST 22 U/L (15-37); SGPT/ALT 16 U/L (13-61); TOT PROT 6.2 g/dl (6.4-8.2)
--- NOTE | 2018-01-06 09:57 | EKG ---
Test Reason : Blood Pressure : / mmHG Vent. Rate : 075 BPM Atrial Rate : 075 BPM P-R Int : 168 ms QRS Dur : 102 ms QT Int : 428 ms P-R-T Axes : 050 047 154 degrees QTc Int : 477 ms NORMAL SINUS RHYTHM LOW VOLTAGE QRS T WAVE ABNORMALITY, CONSIDER ANTEROLATERAL ISCHEMIA PROLONGED QT ABNORMAL ECG WHEN COMPARED WITH ECG OF 20-DEC-2017 12:34, NO SIGNIFICANT CHANGE WAS FOUND Confirmed by STEPHEN HERNANDEZ, BRANDON ([id number]) on 01/06/2018 9:57:24 AM Referred By: Confirmed By:BRANDON MITCHELL MD
[2018-01-06] MEDS ORDERED: PATIENT'S OWN MEDICATION (NON-FORMULARY) (Simvastatin [Simvastatin] 80 MG) PO SCH (10:00)
--- NOTE | 2018-01-06 10:01 | PN ---
Progress Note (short form) - Note Progress Note: 77 y/o male for 4 weeks of rectal pain due to constipation. Denies difficulty urinating and denies pain. Nurse present and reports 2 large BMs this am. Vital Signs Period Temp Pulse Resp BP Sys/Bridges Pulse Ox Last 24 Hr 98.5 F-98.7 F 55-82 20-20 104-146/64-98 96-100 CBC, BMP 01/06/18 06:30 01/06/18 06:30 HEENT- Normocephalic Neck-supple Lungs- CTAB Heart- S1/S2 Abd- soft, NT - Urine clear/yellow Ext- No LE edema Active Medications Aspirin (Asa -) 81 mg PO DAILY [facility] Atorvastatin Calcium (Lipitor -) 40 mg PO HS [facility] Docusate Sodium (Colace -) 200 mg PO TID [facility] Last Admin: 01/06/18 06:40 Dose: 200 mg Folic Acid (Folic Acid -) 1 mg PO DAILY [facility] Metoprolol Succinate (Toprol Xl -) 50 mg PO DAILY [facility] Nitroglycerin (Nitrostat -) 0.4 mg SL DAILY PRN PRN Reason: FOR CHEST PAIN Sitagliptin Phosphate (Januvia -) 50 mg PO DAILY@0700 [facility] Last Admin: 01/06/18 06:40 Dose: 50 mg Torsemide (Demadex -) 5 mg PO DAILY [facility] # Constipation/ Diverticulosis - GI consult requested - 2 Lg BMs this am - Colace TID #Urinary retention consult requested # Elevated WBC Trending down 14.1 #HTN Cont Metoprolol # DM Cont Januvia
[2018-01-06] MEDS ORDERED: PT OWN MED DRAWER 7, Y5N ONE (10:57)
[2018-01-06] MEDS: ASPIRIN 81 MG CHEWABLE TABLETS PO SCH (10:59)
[2018-01-06] MEDS: FOLIC ACID 1 MG TABLET (FP) PO SCH (10:59)
[2018-01-06] MEDS: TORSEMIDE 5 MG TABLET PO SCH (12:34)
--- NOTE | 2018-01-06 13:42 | PN ---
Progress Note (short form) - Note Progress Note: ID consult dictated imp/reccd chronic constipation with pain with defecation- ct scan with stercoral colitis- pain relieved- he had 2 BMS urinary retention- now resolved leukocytosis- UTI received zosyn last night +pyuria no blood cultures sent from ED jo ann for uti gi for chronic constipation f/u cultures Problem List - Problems (1) Constipation Code(s): K59.00 - CONSTIPATION, UNSPECIFIED (2) UTI (urinary tract infection) Code(s): N39.0 - URINARY TRACT INFECTION, SITE NOT SPECIFIED (3) Leukocytosis Code(s): D72.829 - ELEVATED WHITE BLOOD CELL COUNT, UNSPECIFIED
--- NOTE | 2018-01-06 14:58 | CONS ---
DATE OF CONSULTATION: DATE OF DICTATION: 01/06/2018 REQUESTING PHYSICIAN: Keisha Pierce MD HISTORY OF PRESENT ILLNESS: This is a 77-year-old man who presented to the emergency room with complaint of pain with defecation, and he has had chronic constipation he reports for at least the last month. He had some nausea and vomiting also. There was no associated fever and chills. He is a very poor historian. He lives at home with his daughter. He knows his doctor is Dr. Mckay, but he is really unclear about the rest of his medical care. ALLERGIES: He has no known drug allergies. MEDICATIONS: At home include aspirin, Colace, folic acid, metoprolol, omeprazole, simvastatin, Januvia, torsemide. PAST MEDICAL HISTORY: Includes history of coronary artery disease, CVA in 2010. He has history of [id number] diabetes, hypertension, and hypercholesterolemia. He is status post recent single-vessel CABG done in September of 2017. SOCIAL HISTORY: He lives with his daughter. He is a former smoker, he quit 6 months ago. FAMILY HISTORY: Noncontributory. REVIEW OF SYSTEMS: He denies any fever, chills. He notes he has had urinary retention at home. He had a White placed in the emergency room that has now been removed, and he reports he is able to void now. He notes some mild dysuria, that has now resolved. PHYSICAL EXAMINATION General: He is awake and alert. Vital signs: Temperature is 98.5; pulse is 78, blood pressure 138/73, respiratory rate 20, he weighs 61 kg. HEENT: He is normocephalic. His eyes are anicteric. Neck: Supple. Lungs: Clear to auscultation. Heart: Regular rate and rhythm. Abdomen: Soft, nontender. Extremities: Without edema. Skin: He has a well-healed sternotomy scar. DIAGNOSTIC DATA: Labs are notable on admission for a white count of 20, this morning, it is 14.2, hemoglobin is 12, platelets are 296. On admission, BUN was 13, and creatinine was 1.5, today BUN 10 and creatinine 1. Lactic acid was 3.1, on repeat 1.9 with normal LFTs. Albumin is 2.8. Urinalysis has 2+ leukocytes with 2208 white cells. Urine culture is pending. No blood cultures were sent. He received Zosyn in the emergency room, and a CT scan of his abdomen and pelvis was done which was notable for extensive diverticulosis without diverticulitis, rectal fecal retention with moderate rectal distension. Cannot rule out stercoral colitis. He has mild diffuse bladder wall thickening, as well. He is status post cholecystectomy. SUMMARY: This is a 77-year-old man admitted with chronic constipation with pain with defecation that is now improved. He has had 2 bowel movements. He has urinary retention, as well, now resolved, probably on the basis of constipation. He has a leukocytosis most likely due to urinary tract infection, urinalysis consistent with pyuria. He received Zosyn last night. He does not report any outpatient antibiotics. Would suggest we treat him with Rocephin with GI evaluation for his constipation. Would follow up his cultures. No blood cultures were sent from the emergency room, but given the pretreatment with antibiotics, do not think they will be of any yield at this time. Further recommendations to follow. David [id number]
--- NOTE | 2018-01-06 21:13 | CON.GI ---
Consult Consult Specialty:: Gastroenterology Referred by:: Dr Pierce Reason for Consultation:: Abdominal pain and constipation - History of Present Illness Chief Complaint: Diffuse abdominal pain and constipation x 4 weeks History of Present Illness: 77M is admitted with h/o diffuse colicky abdominal pain and constipation for the past 4 weeks. The pain resolved when he had a large BM following administration of CT contrast. He denies chronic constipation and reports this as a change in bowel habits. He has been straining to pass large hard stools that cause anal pain. He reports that he had a colonoscopy about 3 years ago and believes it was normal and that he was told the preparation was suboptimal. He denies ever having had any polyps removed. He admits to recent unexplained weight loss. He had a CABG at [facility] in 10/04. He denies FH of colon cancer. 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: CVA (with left sided weakness) Cardio/Vascular: Yes: CAD (s/p CABG 10/04 [facility]), CHF, HTN, Hyperlipdemia, [place] Pulmonary: Yes: COPD Gastrointestinal: Yes: Constipation, Diverticulosis, GERD Hepatobiliary: Yes: Cholelithiasis (s/p lap choly) Endocrine: Yes: Diabetes Mellitus - Past Surgical History Past Surgical History: Yes: CABG (10/04 at [facility]), Carotid Endarterectomy (right sided 2016), Cholecystectomy (laparoscopic), Colonoscopy - Alcohol/Substance Use Hx Alcohol Use: No (stopped over a year ago) - Smoking History Smoking history: Former smoker Have you smoked in the past 12 months: Yes If you are a former smoker, when did you quit?: 6months - Social History Usual Living Arrangement: With Child ADL: Family Assistance 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 Place of : [facility] History of Recent Travel: No Home Medications - Allergies Allergies/Adverse Reactions: Allergies Allergy/AdvReac Type Severity Reaction Status Date / Time No Known Allergies Allergy Verified 01/05/18 12:14 - Home Medications Home Medications: Ambulatory Orders Aspirin 81 mg PO DAILY 12/20/17 Docusate Sodium [Colace] 100 mg PO DAILY 12/20/17 Folic Acid 1 mg PO DAILY 12/20/17 Metoprolol Succinate [Toprol Xl] 50 mg PO DAILY MDD 25mg (2tabs daily) 12/20/17 Nitroglycerin Sublingual [Nitrostat -] 0.4 mg SL PRN PRN 12/20/17 Omeprazole 40 mg PO DAILY 12/20/17 Simvastatin 80 mg PO DAILY 12/20/17 Sitagliptin Phosphate [Januvia] 50 mg PO DAILY 12/20/17 Torsemide [Demadex -] 5 mg PO DAILY 12/20/17 Tobramycin 0.3% Ophth Soln [Tobrex Ophthalmic Solution -] 1 drop OD Q4HWA 7 Days #2.5 ml 12/21/17 Family Disease History - Family Disease History Family Disease History: CA: Father ( mesothelioma), Mother ( cervical cancer) Review of Systems - Review of Systems Constitutional: reports: Loss of Appetite, Unintentional Wgt. Loss Eyes: reports: No Symptoms HENT: reports: No Symptoms Neck: reports: No Symptoms Cardiovascular: reports: Shortness of Breath Respiratory: reports: Exercise Intolerance Gastrointestinal: reports: Abdominal Pain, Bloating, Constipation, Other ( heartburn) Musculoskeletal: reports: No Symptoms Physical Exam-GI Vital Signs: Vital Signs Temperature 98.0 F 01/06/18 15:09 Pulse Rate 68 01/06/18 15:09 Respiratory Rate 20 01/06/18 09:00 Blood Pressure 125/60 01/06/18 09:00 O2 Sat by Pulse Oximetry (%) 96 01/05/18 20:00 CBC,CMP WBC 14.2 K/mm3 (4.0-10.0) H 01/06/18 06:30 RBC 4.20 M/mm3 (4.00-5.60) 01/06/18 06:30 Hgb 12.0 GM/dL (11.7-16.9) 01/06/18 06:30 Hct 36.2 % (35.4-49) 01/06/18 06:30 MCV 86.3 fl (80-96) 01/06/18 06:30 MCH 28.6 pg (25.7-33.7) 01/06/18 06:30 MCHC 33.1 g/dl (32.0-35.9) 01/06/18 06:30 RDW 14.5 % (11.9-15.9) 01/06/18 06:30 Plt Count 296 K/MM3 (134-434) 01/06/18 06:30 MPV 7.2 fl (7.5-11.1) L 01/06/18 06:30 Sodium 134 mmol/L (136-145) L 01/06/18 06:30 Potassium 4.0 mmol/L (3.5-5.1) 01/06/18 06:30 Chloride 104 mmol/L (98-107) 01/06/18 06:30 Carbon Dioxide 22 mmol/L (21-32) 01/06/18 06:30 Anion Gap 8 MMOL/L (8-16) 01/06/18 06:30 BUN 10 mg/dL (7-18) 01/06/18 06:30 Creatinine 1.0 mg/dL (0.55-1.3) 01/06/18 06:30 Creat Clearance w eGFR > 60 (>60) 01/06/18 06:30 Random Glucose 87 mg/dL (74-106) 01/06/18 06:30 Lactic Acid 1.9 mmol/L (0.4-2.0) 01/05/18 17:21 Calcium 8.2 mg/dL (8.5-10.1) L 01/06/18 06:30 Total Bilirubin 0.8 mg/dL (0.2-1) 01/06/18 06:30 AST 22 U/L (15-37) 01/06/18 06:30 ALT 16 U/L (13-61) 01/06/18 06:30 Alkaline Phosphatase 93 U/L (45-117) 01/06/18 06:30 Total Protein 6.2 g/dl (6.4-8.2) L 01/06/18 06:30 Albumin 2.8 g/dl (3.4-5.0) L 01/06/18 06:30 Current Medications Generic Name Dose Route Start Last Admin Trade Name Freq PRN Reason Stop Dose Admin Aspirin 81 mg 01/06/18 10:00 01/06/18 10:59 Asa - PO 81 mg DAILY KP Administration Atorvastatin Calcium 40 mg 01/06/18 22:00 Lipitor - PO HS KP Docusate Sodium 200 mg 01/06/18 06:00 01/06/18 13:13 Colace - PO 200 mg TID KP Administration Folic Acid 1 mg 01/06/18 10:00 01/06/18 10:59 Folic Acid - PO 1 mg DAILY KP Administration Ceftriaxone Sodium 1 gm/ 50 mls @ 100 mls/hr 01/06/18 14:15 Dextrose IVPB DAILY [facility] Protocol Metoprolol Succinate 50 mg 01/06/18 10:00 01/06/18 10:59 Toprol Xl - PO 50 mg DAILY KP Administration Nitroglycerin 0.4 mg 01/05/18 23:51 Nitrostat - SL DAILY PRN FOR CHEST PAIN Sitagliptin Phosphate 50 mg 01/06/18 07:00 01/06/18 06:40 Januvia - PO 50 mg DAILY@0700 KP Administration Torsemide 5 mg 01/06/18 10:00 01/06/18 12:34 Demadex - PO 5 mg DAILY KP Administration Constitutional: Yes: Calm Eyes: Yes: Conjunctiva Clear HENT: Yes: Normocephalic Neck: Yes: Other (healed right incision) Cardiovascular: Yes: Regular Rate and Rhythm, Other (healed median sternotomy incision) Respiratory: Yes: CTA Bilaterally Gastrointestinal Inspection: Yes: Scars (healed lap choly incisions) ...Auscultate: Yes: Hypoactive Bowel Sounds ...Palpate: Yes: Soft, Other (nontender) ...Percussion: Yes: Tympanitic ...Rectal Exam: Yes: Guaiac Negative (2+ prostate, muddy brown stool), Sphincter Tone Normal Edema: No Neurological: Yes: Alert, Oriented Labs: CBC, BMP 01/06/18 06:30 01/06/18 06:30 Laboratory Tests 01/05/18 01/05/18 01/05/18 13:35 14:15 17:21 WBC 20.5 H Hgb MCV Lactic Acid 3.1 H* 1.9 01/06/18 06:30 WBC 14.2 H Hgb 12.0 MCV 86.3 Lactic Acid Imaging - Results Cat Scan: Report Reviewed (Chelsey Elise Name: [facility] DEPARTMENT OF RADIOLOGY Phys: Tristan Rosado RESIDENT : 1940 Age: 77 Sex: M [facility] Acct: [id number] Loc: [address] Exam Date: 01/05/18 Status: [facility] [place] [address] Unit Number: [id number] EXAM#: TYPE/EXAM: RESULT: [id number] CT/ABDOMEN PELVIS CT WITH CONTR Abdomen and pelvis CT (with intravenous contrast) Clinical information given: abdominal pain, tenderness to palpation Multiplanar imaging was performed utilizing intravenous as well as oral contrast. No prior abdomen/ pelvis imaging studies are available at this facility for direct comparison. There is no definite evidence of pneumoperitoneum. No evidence of bowel obstruction, abscess or free intraperitoneal fluid. Status post cholecystectomy. The common bile duct is mildly dilated with a 1.1 cm diameter. No gross intraductal calculus is visualized. The appendix is not definitely visualized however there are no indirect CT signs of acute appendicitis. Extensive sigmoid diverticulosis is noted without evidence of acute diverticulitis. Scattered diverticula are seen along the length of the remainder the colon. There is mild diffuse colonic distention which could be on the basis of a mild ileus. There is also possible mild increased fluid within the colon. Moderate rectal distention is noted secondary to fecal retention. There appears to be mild concentric rectal wall thickening and mild perirectal soft tissue stranding which could be on the basis of stercoral colitis. No gross small bowel pathology is identified. Mild diffuse urinary bladder wall thickening is seen. Mild prostate enlargement. 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 A surgical stent is seen within the left external iliac artery which also appears to be at least partially occluded. The liver , spleen, pancreas, and adrenal glands and kidneys demonstrate no discrete abnormality. There is no aortic aneurysm. No obvious lymphadenopathy is identified. The visualized osseous structures demonstrate no gross CT evidence of acute pathology. An approximately 2.3 x 1.4 cm subcortical hypodense focus is seen within the right acetabular roof ventrally. As noted on a chest CT exam of 12/20/2017 emphysematous changes are visualized. IMPRESSION: Extensive sigmoid diverticulosis is noted without CT evidence of acute diverticulitis. There is mild diffuse colonic distention which could be on the basis of a mild ileus. There is also possible mildly increased fluid within the colon. Correlate clinically in regards to current/ recent diarrheal illness. No colonic wall edema is visualized. Rectal fecal retention is noted with associated moderate rectal distention. There also appears to be mild concentric rectal wall thickening and mild perirectal soft tissue stranding which could be secondary to stercoral colitis. Correlate clinically. Mild diffuse urinary bladder wall thickening is seen which may be on the basis of acute and/or chronic cystitis versus secondary to chronic outlet obstruction. Status post cholecystectomy. There is mild nonspecific common bile duct dilatation which could be on a postsurgical basis versus representing pathologic change. Clinical/laboratory correlation is suggested. Follow-up imaging as clinically indicated. 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 A surgical stent is noted within the left external iliac artery which also appears to be at least partially occluded. The stent itself may also be occluded. A 2.3 x 1.4 cm right acetabular subcortical low-attenuation focus is seen possibly representing unusually prominent degenerative cyst and probably less likely an osteolytic neoplastic lesion. Correlate with nonemergent MRI. Alternatively correlate with prior CT studies if available from a different facility. Reported By: Ken Guido MD 01/05/181727 Tristan Rosado Technologist: Dominguez Rose Transcribed Date/Time: 01/05/181727 Joint Cutter: Ken Guido Printed Date/Time: By: Signed by: Ken Guido Signed on: 05-Jan-2018 17:29) Problem List - Problems (1) Constipation Assessment/Plan: Leni describes this constipation as a change in bowel habits raising the possibility of an obstructing neoplasm or stricture. The rectal distension and wall edema suggests a more chronic problem and the possibility of a stercoral ulcer through which he may have become bacteremic. He may alternatively have an anal fissure. I could not get him to relax enough to do an adequate exam and will treat for this empirically I do not feel a perirectal abscess however. It appears that the laxative effects of gastrograffin have offered relief. I will start Miralax. I have advised a colonoscopy and discussed the procedure in detail with him. I informed him of the potential risks that include perforation and hemorrhage and the anesthesia risks given his COPD. He wants to discuss it with his daughter before deciding. I left my business card so that she can call me as it is too late to call her now. He is relatively anemic for a COPD patient. Code(s): K59.00 - CONSTIPATION, UNSPECIFIED Qualifiers: Constipation type: other constipation type Qualified Code(s): K59.09 - Other constipation (2) Abdominal pain Assessment/Plan: The relief after a large BM suggest this was due to colon distension Code(s): R10.9 - UNSPECIFIED ABDOMINAL PAIN Qualifiers: Abdominal location: generalized Qualified Code(s): R10.84 - Generalized abdominal pain (3) Fecal impaction in rectum Code(s): K56.41 - FECAL IMPACTION (4) Diverticulosis Code(s): K57.90 - DVRTCLOS OF INTEST, PART UNSP, W/O PERF OR ABSCESS W/O BLEED Qualifiers: Diverticulosis site: diverticulosis of large intestine (5) CVA (cerebral vascular accident) Code(s): I63.9 - CEREBRAL INFARCTION, UNSPECIFIED (6) Anal fissure Assessment/Plan: Will order sitz baths and anusol Code(s): K60.2 - ANAL FISSURE, UNSPECIFIED (7) Dilated bile duct Assessment/Plan: Given the normal LFTs I believe that this is dilation commonly found after postcholecystectomy. If the LFTs rise an MRCP will be ordered. Code(s): K83.8 - OTHER SPECIFIED DISEASES OF BILIARY TRACT
[2018-01-06] MEDS ORDERED: cefTRIAXone SODIUM 1 GM VIAL ONE (21:18)
[2018-01-06] MEDS ORDERED: DEXTROSE 5%-WATER - 50 ML IVPB ONE (21:18)
[2018-01-06] MEDS: ATORVASTATIN CA 40 MG TABLET (FP) PO SCH (21:26)
[2018-01-06] MEDS: CEFTRIAXONE 1 GM in DEXTROSE 5%-WATER - 50 ML IVPB SCH (21:26)
[2018-01-06] MEDS: POLYETHYLENE GLYCOL 3350 119 GM BTL PO SCH (23:00)
[2018-01-07] MEDS: POLYETHYLENE GLYCOL 3350 119 GM BTL PO SCH ×3 (06:22→21:29)
[2018-01-07] MEDS: sitaGLIPtin PHOSPHATE 50 MG TABLET PO SCH (06:22)
--- NOTE | 2018-01-07 08:13 | CON.GU ---
Consult Consult Specialty:: urology Referred by:: Kari Reason for Consultation:: uti/urinary retention - History of Present Illness Chief Complaint: uti/urinary retention History of Present Illness: Patient is a 77 year old male with history of DM/PVD/CAD s/ CABG who presents with severe constipation and urinary retention requiring a salazar catheter. The catheter was removed yesterday. The patient reports that he is voiding well. The patient denies previous history of urinary retention or previous urologic surgery. The patient has a baseline of moderate frequency and urgency with nocturia x2. He reports that his flow is OK. 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: CVA (with left sided weakness) Cardio/Vascular: Yes: CAD (s/p CABG 10/04 [facility] [place] CHF, HTN, Hyperlipdemia, [place] Pulmonary: Yes: COPD Gastrointestinal: Yes: Constipation, Diverticulosis, GERD Hepatobiliary: Yes: Cholelithiasis (s/p lap choly) Endocrine: Yes: Diabetes Mellitus - Past Surgical History Past Surgical History: Yes: CABG (10/04 at [facility]), Carotid Endarterectomy (right sided 2015), Cholecystectomy (laparoscopic), Colonoscopy - Alcohol/Substance Use Hx Alcohol Use: No (stopped over a year ago) - Smoking History Smoking history: Former smoker Have you smoked in the past 12 months: Yes If you are a former smoker, when did you quit?: 6months - Social History Usual Living Arrangement: With Child ADL: Family Assistance 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 History of Recent Travel: No Home Medications - Allergies Allergies/Adverse Reactions: Allergies Allergy/AdvReac Type Severity Reaction Status Date / Time No Known Allergies Allergy Verified 01/05/18 12:14 - Home Medications Home Medications: Ambulatory Orders Aspirin 81 mg PO DAILY 12/20/17 Docusate Sodium [Colace] 100 mg PO DAILY 12/20/17 Folic Acid 1 mg PO DAILY 12/20/17 Metoprolol Succinate [Toprol Xl] 50 mg PO DAILY MDD 25mg (2tabs daily) 12/20/17 Nitroglycerin Sublingual [Nitrostat -] 0.4 mg SL PRN PRN 12/20/17 Omeprazole 40 mg PO DAILY 12/20/17 Simvastatin 80 mg PO DAILY 12/20/17 Sitagliptin Phosphate [Januvia] 50 mg PO DAILY 12/20/17 Torsemide [Demadex -] 5 mg PO DAILY 12/20/17 Tobramycin 0.3% Ophth Soln [Tobrex Ophthalmic Solution -] 1 drop OD Q4HWA 7 Days #2.5 ml 12/21/17 Family Disease History - Family Disease History Family Disease History: CA: Father ( mesothelioma), Mother ( cervical cancer) Physical Exam- Vital Signs: Vital Signs Temperature 98.9 F 01/07/18 05:00 Pulse Rate 68 01/07/18 05:00 Respiratory Rate 20 01/07/18 00:13 Blood Pressure 135/64 01/07/18 05:00 O2 Sat by Pulse Oximetry (%) 96 01/05/18 20:00 Constitutional: Yes: Well Nourished, No Distress, Calm Eyes: Yes: WNL, Conjunctiva Clear, EOM Intact HENT: Yes: WNL, Atraumatic, Normocephalic Neck: Yes: WNL, Supple, Trachea Midline Cardiovascular: Yes: Regular Rate and Rhythm Respiratory: Yes: Regular Gastrointestinal: Yes: Soft Renal/: Yes: WNL Kidneys: Yes: WNL Pelvis: Yes: WNL, Bladder Non Palpable Testicles: Yes: WNL Scrotum: Yes: WNL Penis: Yes: WNL Prostate Exam: Yes: Other (2-3+ prostate with mild asymmetry/no fluctuance) Imaging - Results Cat Scan: Report Reviewed Assessment/Plan imp uti bph urinary retention plan antibiotics as per ID patient is currently voiding without complaint and his bladder is not palpable; the uti and retention are most likely related to the constipation will schedule a uroflow analysis as an outpatient to ensure adequate bladder emptying thank you for this kind consultation 20 minutes devoted to consultation
[2018-01-07 08:29] LABS: BASO % 0.5 % (0-2.0); EOS % 3.9 % (0-4.5); HEMATOCRIT 35.5 % (35.4-49); HEMOGLOBIN 11.8 GM/dL (11.7-16.9); LYMPH % 15.9 % (8-40); MCH 28.7 pg (25.7-33.7); MCHC 33.2 g/dl (32.0-35.9); MEAN CELL VOLUME 86.5 fl (80-96); MEAN PLT VOLUME 7.5 fl (7.5-11.1); MONO % 4.4 % (3.8-10.2); NEUT % 75.3 % (42.8-82.8); PLATELET COUNT 301 K/MM3 (134-434); RDW 14.2 % (11.9-15.9); WHITE BLOOD COUNT 12.3 K/mm3 (4.0-10.0)
[2018-01-07 09:27] LABS: ALBUMIN 2.7 g/dl (3.4-5.0); ALK PHOS 94 U/L (45-117); AMYLASE 26 U/L (25-115); ANION GAP 9 MMOL/L (8-16); BILIRUBIN,TOTAL 0.6 mg/dL (0.2-1); BLOOD UREA NITROGEN 11 mg/dL (7-18); CALCIUM 8.5 mg/dL (8.5-10.1); CHLORIDE 103 mmol/L (98-107); CO2 22 mmol/L (21-32); CREATININE 0.9 mg/dL (0.55-1.3); GAMMA GLUTAMYL TRANSPEPTIDASE 16 U/L (5-85); GLUCOSE,RANDOM 82 mg/dL (74-106); LIPASE 118 U/L (73-393); POTASSIUM 3.9 mmol/L (3.5-5.1); SGOT/AST 17 U/L (15-37); SGPT/ALT 14 U/L (13-61); SODIUM 133 mmol/L (136-145); TOT PROT 5.9 g/dl (6.4-8.2)
[2018-01-07] MEDS ORDERED: PT OWN MED DRAWER 7, Y5N ONE (09:44)
[2018-01-07] MEDS ORDERED: DEXTROSE 5%-WATER - 50 ML IVPB ONE (09:45)
[2018-01-07] MEDS ORDERED: cefTRIAXone SODIUM 1 GM VIAL ONE (09:45)
[2018-01-07] MEDS: ASPIRIN 81 MG CHEWABLE TABLETS PO SCH (10:09)
[2018-01-07] MEDS: CEFTRIAXONE 1 GM in DEXTROSE 5%-WATER - 50 ML IVPB SCH (10:09)
[2018-01-07] MEDS: FOLIC ACID 1 MG TABLET (FP) PO SCH (10:09)
[2018-01-07] MEDS: TORSEMIDE 5 MG TABLET PO SCH (10:10)
--- NOTE | 2018-01-07 11:04 | PN ---
Progress Note (short form) - Note Progress Note: 77 y/o male found lying comfortably in bed. No repots of pain. States that he had a BM this am. Vital Signs Period Temp Pulse Resp BP Sys/Bridges Pulse Ox Last 24 Hr 98.0 F-98.9 F 67-69 20-20 128-143/64-77 CBC, BMP 18 07:15 01/07/18 07:15 HEENT- NL Neck- Supple Lungs- CTAB Heart- S1/S2 Abd- Soft, NT Ext- No LE edema Active Medications Aspirin (Asa -) 81 mg PO DAILY [facility] Last Admin: 01/07/18 10:09 Dose: 81 mg Atorvastatin Calcium (Lipitor -) 40 mg PO HS [facility] Last Admin: 01/06/18 21:26 Dose: 40 mg Folic Acid (Folic Acid -) 1 mg PO DAILY [facility] Last Admin: 01/07/18 10:09 Dose: 1 mg Ceftriaxone Sodium 1 gm/ (Dextrose) 50 mls @ 100 mls/hr IVPB DAILY [facility]; Protocol Last Admin: 01/07/18 10:09 Dose: 100 mls/hr Metoprolol Succinate (Toprol Xl -) 50 mg PO DAILY [facility] Last Admin: 01/07/18 10:09 Dose: 50 mg Nitroglycerin (Nitrostat -) 0.4 mg SL DAILY PRN PRN Reason: FOR CHEST PAIN Polyethylene Glycol (Miralax (For Daily Use) -) 17 gm PO TID [facility] Last Admin: 01/07/18 06:22 Dose: 17 gm Sitagliptin Phosphate (Januvia -) 50 mg PO DAILY@0700 [facility] Last Admin: 01/07/18 06:22 Dose: 50 mg Torsemide (Demadex -) 5 mg PO DAILY [facility] Last Admin: 01/07/18 10:10 Dose: 5 mg # Constipation/ Diverticulosis - GI consult appreciated - Poss Stercocal ulcer or anal fissure - Miralax TID - Colonoscopy rec-pt to discuss with dtr #Urinary retention consult appreciated White not indicated # Elevated WBC Trending down 12.3 #HTN BP stable Cont Metoprolol # DM BG 82 Cont Januvia
[2018-01-07 12:50] VITALS: BMI 20.9
--- NOTE | 2018-01-07 17:27 | PN ---
GI Progress Note Subjective: GI NOte: Iglesia has no abdominal pain but has persistent perianal pain. Today I re-examined the anus with better light and confirm an anal fissure. I have again proposed a colonoscopy to exclude a colon and,more specifically a rectal cancer. Today Iglesia has signed an informed consent for the colonoscopy which I have scheduled for Wednesday. . - Objective Vital Signs: Vital Signs Temperature 98.0 F 01/07/18 10:00 Pulse Rate 67 01/07/18 10:00 Respiratory Rate 20 01/07/18 10:00 Blood Pressure 128/67 01/07/18 10:00 O2 Sat by Pulse Oximetry (%) 96 01/05/18 20:00 Laboratory Tests 01/05/18 01/07/18 01/07/18 14:15 07:15 07:15 WBC 20.5 H 12.3 H Ferritin 161.5 C-Reactive Protein 12.6 H Constitutional: Calm ...Auscultate: Yes: Normoactive Bowel Sounds ...Palpate: Yes: Soft, Other (nontender) ...Percussion: Yes: Tympanitic ...Rectal Exam: Yes: Other (anal fissure) Labs: CBC, BMP 01/07/18 07:15 01/07/18 07:15 Problem List - Problems (1) Constipation Assessment/Plan: Will continue Miralax until Golytely prep on Wednesday to prepare for 01/10 colonoscopy. Code(s): K59.00 - CONSTIPATION, UNSPECIFIED Qualifiers: Constipation type: other constipation type Qualified Code(s): K59.09 - Other constipation (2) Abdominal pain Code(s): R10.9 - UNSPECIFIED ABDOMINAL PAIN Qualifiers: Abdominal location: generalized Qualified Code(s): R10.84 - Generalized abdominal pain (3) Fecal impaction in rectum Code(s): K56.41 - FECAL IMPACTION (4) Diverticulosis Code(s): K57.90 - DVRTCLOS OF INTEST, PART UNSP, W/O PERF OR ABSCESS W/O BLEED Qualifiers: Diverticulosis site: diverticulosis of large intestine (5) CVA (cerebral vascular accident) Code(s): I63.9 - CEREBRAL INFARCTION, UNSPECIFIED (6) Anal fissure Code(s): K60.2 - ANAL FISSURE, UNSPECIFIED (7) Dilated bile duct Code(s): K83.8 - OTHER SPECIFIED DISEASES OF BILIARY TRACT
[2018-01-07] MEDS: ATORVASTATIN CA 40 MG TABLET (FP) PO SCH (21:29)
[2018-01-08] MEDS: POLYETHYLENE GLYCOL 3350 119 GM BTL PO SCH ×3 (06:18→21:32)
[2018-01-08] MEDS: sitaGLIPtin PHOSPHATE 50 MG TABLET PO SCH (06:18)
[2018-01-08 07:47] LABS: HEMATOCRIT 37.8 % (35.4-49); HEMOGLOBIN 12.4 GM/dL (11.7-16.9); MCH 28.4 pg (25.7-33.7); MCHC 32.8 g/dl (32.0-35.9); MEAN CELL VOLUME 86.7 fl (80-96); MEAN PLT VOLUME 7.3 fl (7.5-11.1); PLATELET COUNT 269 K/MM3 (134-434); RBC 4.35 M/mm3 (4.00-5.60); RDW 14.4 % (11.9-15.9); WHITE BLOOD COUNT 8.7 K/mm3 (4.0-10.0)
[2018-01-08 08:06] LABS: SERUM IRON SATURATION 7 % (15-55); TOTAL IRON BINDING CAPACITY 180 ug/dL (250-450); UIBC 167 ug/dL (111-343)
[2018-01-08 08:07] LABS: INR 1.16 (0.83-1.09); PROTHROMBIN TIME (PATIENT) 13.1 SEC (9.7-13.0)
[2018-01-08 08:43] LABS: ANION GAP 10 MMOL/L (8-16); BLOOD UREA NITROGEN 9 mg/dL (7-18); CALCIUM 9.1 mg/dL (8.5-10.1); CHLORIDE 103 mmol/L (98-107); CO2 24 mmol/L (21-32); CREATININE 0.9 mg/dL (0.55-1.3); GLUCOSE,RANDOM 85 mg/dL (74-106); SODIUM 137 mmol/L (136-145)
[2018-01-08] MEDS ORDERED: cefTRIAXone SODIUM 1 GM VIAL ONE (10:24)
[2018-01-08] MEDS ORDERED: DEXTROSE 5%-WATER - 50 ML IVPB ONE (10:25)
[2018-01-08] MEDS ORDERED: PT OWN MED DRAWER 7, Y5N ONE (10:35)
[2018-01-08] MEDS: CEFTRIAXONE 1 GM in DEXTROSE 5%-WATER - 50 ML IVPB SCH (10:42)
[2018-01-08] MEDS: ASPIRIN 81 MG CHEWABLE TABLETS PO SCH (10:43)
[2018-01-08] MEDS: FOLIC ACID 1 MG TABLET (FP) PO SCH (10:43)
[2018-01-08] MEDS: TORSEMIDE 5 MG TABLET PO SCH (10:44)
[2018-01-08] MEDS: HYDROCORTISONE 2.5% TOPICAL CREAM 30 GM TUBE PR SCH (10:44)
--- NOTE | 2018-01-08 13:06 | PN ---
Progress Note (short form) - Note Progress Note: urinating well +BM today Vital Signs Period Temp Pulse Resp BP Sys/Bridges Pulse Ox Last 24 Hr 97.5 F-97.8 F 59-80 18-20 118-148/60-71 cor-rrr lungs clear abd soft,nt ext no edema CBC, BMP 01/08/18 07:15 01/08/18 07:15 Microbiology 01/05/18 20:00 Urine - Urine White Urine Culture - Final Escherichia Coli imp/reccd chronic constipation with pain with defecation- ct scan with stercoral colitis- pain relieved- he had 2 BMS urinary retention- now resolved leukocytosis-resolved ecoli UTI- quevedo sensitive- switch to po amox anal fissure for colonoscopy on Wednesday please call back if needed Problem List - Problems (1) Constipation Code(s): K59.00 - CONSTIPATION, UNSPECIFIED Qualifiers: Constipation type: other constipation type Qualified Code(s): K59.09 - Other constipation (2) UTI (urinary tract infection) Code(s): N39.0 - URINARY TRACT INFECTION, SITE NOT SPECIFIED (3) Leukocytosis Code(s): D72.829 - ELEVATED WHITE BLOOD CELL COUNT, UNSPECIFIED
--- NOTE | 2018-01-08 14:46 | PN ---
Progress Note (short form) - Note Progress Note: patient sitting in bed discussed colonoscopy - he understands and is agreeable to procedure denies abdominal pain / nausea / vomiting Vital Signs Period Temp Pulse Resp BP Sys/Bridges Pulse Ox Last 24 Hr 97.5 F-98.5 F 59-80 18-20 118-148/60-71 neck supple heart S1/S2 lung clear bilat abd soft non tender ext no edema CBC, BMP 01/08/18 07:15 01/08/18 07:15 Microbiology 01/05/18 20:00 Urine - Urine White Urine Culture - Final Escherichia Coli Active Medications Amoxicillin (Amoxicillin -) 500 mg PO TID [facility] Aspirin (Asa -) 81 mg PO DAILY [facility] Last Admin: 01/08/18 10:43 Dose: 81 mg Atorvastatin Calcium (Lipitor -) 40 mg PO HS [facility] Last Admin: 01/07/18 21:29 Dose: 40 mg Bisacodyl (Dulcolax -) 20 mg PO ONCE ONE Stop: 01/09/18 18:01 Folic Acid (Folic Acid -) 1 mg PO DAILY [facility] Last Admin: 01/08/18 10:43 Dose: 1 mg Hydrocortisone (Anusol 2.5% Hc Cream -) 1 applic NH DAILY [facility] Last Admin: 01/08/18 10:44 Dose: 1 applic Metoprolol Succinate (Toprol Xl -) 50 mg PO DAILY [facility] Last Admin: 01/08/18 10:43 Dose: 50 mg Nitroglycerin (Nitrostat -) 0.4 mg SL DAILY PRN PRN Reason: FOR CHEST PAIN Polyethylene Glycol (Miralax (For Daily Use) -) 17 gm PO TID [facility] Last Admin: 01/08/18 14:06 Dose: Not Given Sitagliptin Phosphate (Januvia -) 50 mg PO DAILY@0700 [facility] Last Admin: 01/08/18 06:18 Dose: 50 mg Torsemide (Demadex -) 5 mg PO DAILY [facility] Last Admin: 01/08/18 10:44 Dose: 5 mg The patient is a 77M with a history of HTN and T2DM who presents with 4 weeks of pain with defecation and reported constipation. The patient endorses diffuse abdominal pain that is described as crampy. He also endorses sharp pain with defecation that occurs at the time of defecation, not before or after. patient now agreeable to colonoscopy -- scheduled for Wednesday will start bowel prep in am
[2018-01-08] MEDS: ATORVASTATIN CA 40 MG TABLET (FP) PO SCH (21:31)
[2018-01-09] MEDS: sitaGLIPtin PHOSPHATE 50 MG TABLET PO SCH (06:10)
[2018-01-09] MEDS: POLYETHYLENE GLYCOL 3350 119 GM BTL PO SCH ×3 (06:10→21:11)
[2018-01-09 06:12] LABS: HEMATOCRIT 36.7 % (35.4-49); HEMOGLOBIN 12.2 GM/dL (11.7-16.9); MCH 28.9 pg (25.7-33.7); MCHC 33.3 g/dl (32.0-35.9); MEAN CELL VOLUME 86.7 fl (80-96); PLATELET COUNT 267 K/MM3 (134-434); RBC 4.23 M/mm3 (4.00-5.60); WHITE BLOOD COUNT 8.6 K/mm3 (4.0-10.0)
[2018-01-09] MEDS ORDERED: PEG3350/SOD SULF,BICARB,CL/KCL 4,000 ML SOLN.RECON PO ONE (09:00)
[2018-01-09] MEDS ORDERED: PT OWN MED DRAWER 7, Y5N ONE (10:10)
[2018-01-09] MEDS: AMOXICILLIN 500 MG CAPSULE (FP) PO SCH ×3 (10:11→21:11)
[2018-01-09] MEDS: TORSEMIDE 5 MG TABLET PO SCH (10:12)
[2018-01-09] MEDS: FOLIC ACID 1 MG TABLET (FP) PO SCH (10:12)
[2018-01-09] MEDS: HYDROCORTISONE 2.5% TOPICAL CREAM 30 GM TUBE PR SCH (10:12)
[2018-01-09] MEDS: ASPIRIN 81 MG CHEWABLE TABLETS PO SCH (11:34)
--- NOTE | 2018-01-09 12:22 | PN ---
Progress Note (short form) - Note Progress Note: Called by nurse that patient does not like the taste of golytely and is not drinking much of it. in review of the chart it appears as though Dr. Purcell performing colonoscopy secondary to constipation. Given constipation, I suspect that it why Dr. Purcell chose a large volume prep. I asked that his nurse reiterate this to him and suggested they add a flavoring to the golytely such as crystal lite. If he refuses, the would change to miralax prep.
--- NOTE | 2018-01-09 16:55 | PN ---
Progress Note (short form) - Note Progress Note: tolerating Prep - now that flavor has been added so far 2 BMs no abdominal pain Vital Signs Period Temp Pulse Resp BP Sys/Bridges Pulse Ox Last 24 Hr 97.5 F-98.2 F 57-59 16-20 141-156/69-75 96 laying in bed comfortable neck supple heart S1/S2 lngs clear bilat abd soft non tender / no guarding ext no edema CBC, BMP 01/09/18 06:00 01/08/18 07:15 CBC, BMP 01/08/18 07:15 01/08/18 07:15 Microbiology Microbiology 01/05/18 20:00 Urine - Urine White Urine Culture - Final Escherichia Coli Active Medications Amoxicillin (Amoxicillin -) 500 mg PO TID [facility] Last Admin: 01/09/18 13:08 Dose: 500 mg Aspirin (Asa -) 81 mg PO DAILY [facility] Last Admin: 01/09/18 11:34 Dose: Not Given Atorvastatin Calcium (Lipitor -) 40 mg PO HS [facility] Last Admin: 01/08/18 21:31 Dose: 40 mg Bisacodyl (Dulcolax -) 20 mg PO ONCE ONE Stop: 01/09/18 18:01 Folic Acid (Folic Acid -) 1 mg PO DAILY [facility] Last Admin: 01/09/18 10:12 Dose: 1 mg Hydrocortisone (Anusol 2.5% Hc Cream -) 1 applic [place] DAILY [facility] Last Admin: 01/09/18 10:12 Dose: 1 applic Metoprolol Succinate (Toprol Xl -) 50 mg PO DAILY [facility] Last Admin: 01/09/18 10:12 Dose: 50 mg Nitroglycerin (Nitrostat -) 0.4 mg SL DAILY PRN PRN Reason: FOR CHEST PAIN Polyethylene Glycol (Miralax (For Daily Use) -) 17 gm PO TID [facility] Last Admin: 01/09/18 13:07 Dose: Not Given Sitagliptin Phosphate (Januvia -) 50 mg PO DAILY@0700 [facility] Last Admin: 01/09/18 06:10 Dose: 50 mg Torsemide (Demadex -) 5 mg PO DAILY [facility] Last Admin: 01/09/18 10:12 Dose: 5 mg The patient is a 77M with a history of HTN and T2DM who presents with 4 weeks of pain with defecation and reported constipation. The patient endorses diffuse abdominal pain that is described as crampy. He also endorses sharp pain with defecation that occurs at the time of defecation, not before or after. patient now agreeable to colonoscopy -- scheduled for Wednesday T
[2018-01-09] MEDS ORDERED: BISACODYL 5 MG TABLET.DR (FP) PO ONE (18:00)
[2018-01-09] MEDS: ATORVASTATIN CA 40 MG TABLET (FP) PO SCH (21:11)
[2018-01-10] MEDS: AMOXICILLIN 500 MG CAPSULE (FP) PO SCH ×3 (06:54→22:26)
[2018-01-10] MEDS: sitaGLIPtin PHOSPHATE 50 MG TABLET PO SCH (06:55)
[2018-01-10] MEDS: POLYETHYLENE GLYCOL 3350 119 GM BTL PO SCH ×5 (06:55→22:27)
[2018-01-10 07:57] LABS: BASO % 0.6 % (0-2.0); EOS % 5.2 % (0-4.5); HEMATOCRIT 39.9 % (35.4-49); HEMOGLOBIN 13.5 GM/dL (11.7-16.9); LYMPH % 31.4 % (8-40); MCH 28.9 pg (25.7-33.7); MCHC 33.8 g/dl (32.0-35.9); MEAN CELL VOLUME 85.4 fl (80-96); MEAN PLT VOLUME 7.1 fl (7.5-11.1); MONO % 6.9 % (3.8-10.2); NEUT % 55.9 % (42.8-82.8); PLATELET COUNT 308 K/MM3 (134-434); RBC 4.68 M/mm3 (4.00-5.60); RDW 14.1 % (11.9-15.9); WHITE BLOOD COUNT 9.4 K/mm3 (4.0-10.0)
[2018-01-10 08:05] LABS: ANION GAP 8 MMOL/L (8-16); BLOOD UREA NITROGEN 7 mg/dL (7-18); CALCIUM 8.7 mg/dL (8.5-10.1); CHLORIDE 99 mmol/L (98-107); CO2 26 mmol/L (21-32); GLUCOSE,RANDOM 95 mg/dL (74-106); MAGNESIUM 2.2 mg/dL (1.8-2.4); PHOSPHOROUS 3.4 mg/dL (2.5-4.9); POTASSIUM 3.9 mmol/L (3.5-5.1); SODIUM 134 mmol/L (136-145)
--- NOTE | 2018-01-10 10:13 | PN ---
GI Progress Note Subjective: GI NOte: Colonoscopy canceled as Iglesia drank only 1/2 of the prep and had formed stools when given tap water enemas today. I discussed the need for a thorough prep with Iglesia. I have rescheduled him for 01/12. He will stay on clear liquids and drink another liter of Golytely today and another tomorrow. - Objective Vital Signs: Vital Signs Temperature 99.2 F 01/10/18 06:00 Pulse Rate 68 01/10/18 06:00 Respiratory Rate 18 01/10/18 06:00 Blood Pressure 134/68 01/10/18 06:00 O2 Sat by Pulse Oximetry (%) 96 01/09/18 21:00 Constitutional: No Distress ...Auscultate: Yes: Normoactive Bowel Sounds ...Palpate: Yes: Soft, Other (nontender) Labs: CBC, BMP 01/10/18 07:05 01/10/18 07:05 INR, PTT INR 1.16 (0.83-1.09) H 01/08/18 07:15 Problem List - Problems (1) Constipation Assessment/Plan: Will continue Miralax and Golytely prep to prepare for 01/12 colonoscopy. Code(s): K59.00 - CONSTIPATION, UNSPECIFIED Qualifiers: Constipation type: other constipation type Qualified Code(s): K59.09 - Other constipation (2) Abdominal pain Code(s): R10.9 - UNSPECIFIED ABDOMINAL PAIN Qualifiers: Abdominal location: generalized Qualified Code(s): R10.84 - Generalized abdominal pain (3) Fecal impaction in rectum Code(s): K56.41 - FECAL IMPACTION (4) Diverticulosis Code(s): K57.90 - DVRTCLOS OF INTEST, PART UNSP, W/O PERF OR ABSCESS W/O BLEED Qualifiers: Diverticulosis site: diverticulosis of large intestine (5) CVA (cerebral vascular accident) Code(s): I63.9 - CEREBRAL INFARCTION, UNSPECIFIED (6) Anal fissure Code(s): K60.2 - ANAL FISSURE, UNSPECIFIED (7) Dilated bile duct Code(s): K83.8 - OTHER SPECIFIED DISEASES OF BILIARY TRACT
[2018-01-10] MEDS ORDERED: PT OWN MED DRAWER 7, Y5N ONE ×2 (10:35→14:06)
[2018-01-10] MEDS: ASPIRIN 81 MG CHEWABLE TABLETS PO SCH (10:49)
[2018-01-10] MEDS: HYDROCORTISONE 2.5% TOPICAL CREAM 30 GM TUBE PR SCH (10:50)
[2018-01-10] MEDS: FOLIC ACID 1 MG TABLET (FP) PO SCH (10:50)
[2018-01-10] MEDS: TORSEMIDE 5 MG TABLET PO SCH (10:50)
[2018-01-10] MEDS: ATORVASTATIN CA 40 MG TABLET (FP) PO SCH (22:26)
--- NOTE | 2018-01-10 22:43 | PN ---
Progress Note (short form) - Note Progress Note: patient sitting in bed unsuccessful prep for colonoscopy postponed for 01/12 Prep per GI Vital Signs Period Temp Pulse Resp BP Sys/Bridges Pulse Ox Last 24 Hr 98 F-99.2 F 62-68 18-20 103-134/54-68 neck supple heart S1/S2 lung clear bilat abd soft non tender ext no edema CBC, BMP 01/10/18 07:05 01/10/18 07:05 CBC, BMP 01/08/18 07:15 01/08/18 07:15 Microbiology 01/05/18 20:00 Urine - Urine White Urine Culture - Final Escherichia Coli Active Medications Amoxicillin (Amoxicillin -) 500 mg PO TID [facility] Last Admin: 01/10/18 22:26 Dose: 500 mg Aspirin (Asa -) 81 mg PO DAILY [facility] Last Admin: 01/10/18 10:49 Dose: Not Given Atorvastatin Calcium (Lipitor -) 40 mg PO HS [facility] Last Admin: 01/10/18 22:26 Dose: 40 mg Bisacodyl (Dulcolax -) 20 mg PO ONCE ONE Stop: 01/11/18 18:01 Folic Acid (Folic Acid -) 1 mg PO DAILY [facility] Last Admin: 01/10/18 10:50 Dose: 1 mg Hydrocortisone (Anusol 2.5% Hc Cream -) 1 applic [place] DAILY [facility] Last Admin: 01/10/18 10:50 Dose: 1 applic Metoprolol Succinate (Toprol Xl -) 50 mg PO DAILY [facility] Last Admin: 01/10/18 10:50 Dose: 50 mg Nitroglycerin (Nitrostat -) 0.4 mg SL DAILY PRN PRN Reason: FOR CHEST PAIN Polyethylene Glycol (Miralax (For Daily Use) -) 17 gm PO TID [facility] Last Admin: 01/10/18 22:27 Dose: 17 gm Polyethylene Glycol/Electrolytes (Nulytely) 4,000 ml PO ONCE ONE Stop: 01/11/18 09:01 Sitagliptin Phosphate (Januvia -) 50 mg PO DAILY@0700 [facility] Last Admin: 01/10/18 06:55 Dose: Not Given Torsemide (Demadex -) 5 mg PO DAILY [facility] Last Admin: 01/10/18 10:50 Dose: 5 mg The patient is a 77M with a history of HTN and T2DM who presents with 4 weeks of pain with defecation and reported constipation. The patient endorses diffuse abdominal pain that is described as crampy. He also endorses sharp pain with defecation that occurs at the time of defecation, not before or after. patient now agreeable to colonoscopy -- scheduled for today. ... unsuccessful prep - procedure cancelled will continue with liquid diet and slow prep for colonoscopy 01/12
[2018-01-11] MEDS: AMOXICILLIN 500 MG CAPSULE (FP) PO SCH ×3 (06:10→22:19)
[2018-01-11] MEDS: POLYETHYLENE GLYCOL 3350 119 GM BTL PO SCH ×3 (06:11→22:20)
[2018-01-11] MEDS: sitaGLIPtin PHOSPHATE 50 MG TABLET PO SCH (06:12)
[2018-01-11 07:56] LABS: ANION GAP 14 MMOL/L (8-16); BLOOD UREA NITROGEN 10 mg/dL (7-18); CALCIUM 9.1 mg/dL (8.5-10.1); CHLORIDE 101 mmol/L (98-107); CO2 22 mmol/L (21-32); GLUCOSE,RANDOM 80 mg/dL (74-106); MAGNESIUM 2.1 mg/dL (1.8-2.4); POTASSIUM 3.8 mmol/L (3.5-5.1); SODIUM 137 mmol/L (136-145)
[2018-01-11] MEDS ORDERED: PEG/ELECTROLYTES (NULYTELY) 4,000 ML BOTTLE PO ONE (09:00)
--- NOTE | 2018-01-11 10:39 | PN ---
Progress Note (short form) - Note Progress Note: patient sitting in bed unsuccessful prep for colonoscopy postponed for 01/12 Prep per GI / prep has been changed Vital Signs Period Temp Pulse Resp BP Sys/Bridges Pulse Ox Last 24 Hr 98 F-99.2 F 62-68 18-20 103-134/54-68 neck supple heart S1/S2 lung clear bilat abd soft non tender ext no edema CBC, BMP 01/10/18 07:05 01/10/18 07:05 CBC, BMP 01/08/18 07:15 01/08/18 07:15 Microbiology 01/05/18 20:00 Urine - Urine White Urine Culture - Final Escherichia Coli Active Medications Amoxicillin (Amoxicillin -) 500 mg PO TID [facility] Last Admin: 01/11/18 06:10 Dose: 500 mg Aspirin (Asa -) 81 mg PO DAILY [facility] Last Admin: 01/10/18 10:49 Dose: Not Given Atorvastatin Calcium (Lipitor -) 40 mg PO HS [facility] Last Admin: 01/10/18 22:26 Dose: 40 mg Bisacodyl (Dulcolax -) 20 mg PO ONCE ONE Stop: 01/11/18 18:01 Folic Acid (Folic Acid -) 1 mg PO DAILY [facility] Last Admin: 01/10/18 10:50 Dose: 1 mg Hydrocortisone (Anusol 2.5% Hc Cream -) 1 applic [place] DAILY [facility] Last Admin: 01/10/18 10:50 Dose: 1 applic Metoprolol Succinate (Toprol Xl -) 50 mg PO DAILY [facility] Last Admin: 01/10/18 10:50 Dose: 50 mg Nitroglycerin (Nitrostat -) 0.4 mg SL DAILY PRN PRN Reason: FOR CHEST PAIN Polyethylene Glycol (Miralax (For Daily Use) -) 17 gm PO TID [facility] Last Admin: 01/11/18 06:11 Dose: 17 gm Sitagliptin Phosphate (Januvia -) 50 mg PO DAILY@0700 [facility] Last Admin: 01/11/18 06:12 Dose: 50 mg Torsemide (Demadex -) 5 mg PO DAILY [facility] Last Admin: 01/10/18 10:50 Dose: 5 mg The patient is a 77M with a history of HTN and T2DM who presents with 4 weeks of pain with defecation and reported constipation. The patient endorses diffuse abdominal pain that is described as crampy. He also endorses sharp pain with defecation that occurs at the time of defecation, not before or after. patient now agreeable to colonoscopy -- scheduled for today. ... unsuccessful prep - procedure cancelled will continue with liquid diet and slow prep for colonoscopy 01/12 physical therapy evaluation as patient will need STR
[2018-01-11] MEDS ORDERED: PT OWN MED DRAWER 7, Y5N ONE ×2 (12:36→22:15)
[2018-01-11] MEDS: FOLIC ACID 1 MG TABLET (FP) PO SCH (12:39)
[2018-01-11] MEDS: ASPIRIN 81 MG CHEWABLE TABLETS PO SCH (12:39)
[2018-01-11] MEDS: TORSEMIDE 5 MG TABLET PO SCH (12:40)
[2018-01-11] MEDS: HYDROCORTISONE 2.5% TOPICAL CREAM 30 GM TUBE PR SCH (12:41)
[2018-01-11] MEDS ORDERED: MAGNESIUM CITRATE 300 ML BOTTLE PO ONE (13:15)
--- NOTE | 2018-01-11 17:56 | PN ---
GI Progress Note Subjective: GI: Refused to drink Golytely so gave Citroma today. No BMs as yet - Objective Vital Signs: Vital Signs Temperature 98.2 F 01/11/18 09:03 Pulse Rate 68 01/11/18 09:03 Respiratory Rate 20 01/11/18 09:03 Blood Pressure 124/67 01/11/18 09:03 O2 Sat by Pulse Oximetry (%) 95 01/10/18 21:00 Laboratory Tests 01/06/18 01/07/18 01/07/18 06:30 07:15 07:15 Hgb 12.0 Retic Count 0.90 Ferritin 161.5 01/08/18 01/10/18 07:15 07:05 Hgb 12.4 13.5 Retic Count Ferritin Constitutional: Calm ...Auscultate: Yes: Normoactive Bowel Sounds ...Palpate: Yes: Soft, Other (nontender) Labs: CBC, BMP 01/10/18 07:05 01/11/18 06:30 INR, PTT INR 1.16 (0.83-1.09) H 01/08/18 07:15 Problem List - Problems (1) Constipation Assessment/Plan: Will continue Miralax. For 01/12 colonoscopy. Code(s): K59.00 - CONSTIPATION, UNSPECIFIED Qualifiers: Constipation type: other constipation type Qualified Code(s): K59.09 - Other constipation (2) Abdominal pain Code(s): R10.9 - UNSPECIFIED ABDOMINAL PAIN Qualifiers: Abdominal location: generalized Qualified Code(s): R10.84 - Generalized abdominal pain (3) Fecal impaction in rectum Code(s): K56.41 - FECAL IMPACTION (4) Diverticulosis Code(s): K57.90 - DVRTCLOS OF INTEST, PART UNSP, W/O PERF OR ABSCESS W/O BLEED Qualifiers: Diverticulosis site: diverticulosis of large intestine (5) CVA (cerebral vascular accident) Code(s): I63.9 - CEREBRAL INFARCTION, UNSPECIFIED (6) Anal fissure Code(s): K60.2 - ANAL FISSURE, UNSPECIFIED (7) Dilated bile duct Code(s): K83.8 - OTHER SPECIFIED DISEASES OF BILIARY TRACT
[2018-01-11] MEDS ORDERED: BISACODYL 5 MG TABLET.DR (FP) PO ONE (18:00)
[2018-01-11] MEDS: ATORVASTATIN CA 40 MG TABLET (FP) PO SCH (22:19)
[2018-01-12] MEDS ORDERED: PT OWN MED DRAWER 7, Y5N ONE ×3 (05:54→22:02)
[2018-01-12] MEDS: AMOXICILLIN 500 MG CAPSULE (FP) PO SCH ×3 (06:22→22:08)
[2018-01-12] MEDS: sitaGLIPtin PHOSPHATE 50 MG TABLET PO SCH (06:23)
[2018-01-12] MEDS: POLYETHYLENE GLYCOL 3350 119 GM BTL PO SCH ×3 (06:23→22:08)
[2018-01-12 07:33] LABS: BASO % 0.6 % (0-2.0); HEMATOCRIT 39.5 % (35.4-49); HEMOGLOBIN 12.9 GM/dL (11.7-16.9); MCH 28.1 pg (25.7-33.7); MCHC 32.8 g/dl (32.0-35.9); MEAN CELL VOLUME 85.7 fl (80-96); MONO % 6.3 % (3.8-10.2); NEUT % 67.1 % (42.8-82.8); PLATELET COUNT 336 K/MM3 (134-434); RDW 14.1 % (11.9-15.9)
[2018-01-12 08:03] LABS: ANION GAP 10 MMOL/L (8-16); BLOOD UREA NITROGEN 9 mg/dL (7-18); CALCIUM 8.8 mg/dL (8.5-10.1); CHLORIDE 101 mmol/L (98-107); CO2 24 mmol/L (21-32); CREATININE 0.9 mg/dL (0.55-1.3); GLUCOSE,RANDOM 102 mg/dL (74-106); POTASSIUM 3.4 mmol/L (3.5-5.1); SODIUM 135 mmol/L (136-145)
--- NOTE | 2018-01-12 09:42 | PN ---
Progress Note (short form) - Note Progress Note: GI Procedure NOte: Please see scanned colonoscopy report. No malignancy found. Smalkl rectal polyp removed. Anal fissure almost healed. Would continue miralax indefinitely. No GI objections to discharge. Problem List - Problems (1) Constipation Code(s): K59.00 - CONSTIPATION, UNSPECIFIED Qualifiers: Constipation type: other constipation type Qualified Code(s): K59.09 - Other constipation (2) Abdominal pain Code(s): R10.9 - UNSPECIFIED ABDOMINAL PAIN Qualifiers: Abdominal location: generalized Qualified Code(s): R10.84 - Generalized abdominal pain (3) Fecal impaction in rectum Code(s): K56.41 - FECAL IMPACTION (4) Diverticulosis Code(s): K57.90 - DVRTCLOS OF INTEST, PART UNSP, W/O PERF OR ABSCESS W/O BLEED Qualifiers: Diverticulosis site: diverticulosis of large intestine (5) CVA (cerebral vascular accident) Code(s): I63.9 - CEREBRAL INFARCTION, UNSPECIFIED (6) Anal fissure Code(s): K60.2 - ANAL FISSURE, UNSPECIFIED (7) Dilated bile duct Code(s): K83.8 - OTHER SPECIFIED DISEASES OF BILIARY TRACT
[2018-01-12] MEDS: FOLIC ACID 1 MG TABLET (FP) PO SCH (10:37)
[2018-01-12] MEDS: ASPIRIN 81 MG CHEWABLE TABLETS PO SCH (10:37)
[2018-01-12] MEDS: TORSEMIDE 5 MG TABLET PO SCH (10:38)
[2018-01-12] MEDS: HYDROCORTISONE 2.5% TOPICAL CREAM 30 GM TUBE PR SCH (10:38)
--- NOTE | 2018-01-12 21:42 | PN ---
Progress Note (short form) - Note Progress Note: patient in bed completed colonoscopy this am report pending Vital Signs Period Temp Pulse Resp BP Sys/Bridges Pulse Ox Last 24 Hr 97.7 F-97.7 F 69-74 14-21 99-133/46-67 99-100 neck supple heart S1/S2 lung clear bilat abd soft non tender ext no edema CBC, BMP 01/12/18 07:15 01/12/18 07:15 CBC, BMP 01/10/18 07:05 01/10/18 07:05 Microbiology 01/05/18 20:00 Urine - Urine White Urine Culture - Final Escherichia Coli Active Medications Amoxicillin (Amoxicillin -) 500 mg PO TID [facility] Last Admin: 01/12/18 15:08 Dose: 500 mg Aspirin (Asa -) 81 mg PO DAILY [facility] Last Admin: 01/12/18 10:37 Dose: 81 mg Atorvastatin Calcium (Lipitor -) 40 mg PO HS [facility] Last Admin: 01/11/18 22:19 Dose: 40 mg Folic Acid (Folic Acid -) 1 mg PO DAILY [facility] Last Admin: 01/12/18 10:37 Dose: 1 mg Hydrocortisone (Anusol 2.5% Hc Cream -) 1 applic [place] DAILY [facility] Last Admin: 01/12/18 10:38 Dose: 1 applic Metoprolol Succinate (Toprol Xl -) 50 mg PO DAILY [facility] Last Admin: 01/12/18 10:37 Dose: 50 mg Nitroglycerin (Nitrostat -) 0.4 mg SL DAILY PRN PRN Reason: FOR CHEST PAIN Polyethylene Glycol (Miralax (For Daily Use) -) 17 gm PO TID [facility] Last Admin: 01/12/18 15:11 Dose: Not Given Sitagliptin Phosphate (Januvia -) 50 mg PO DAILY@0700 [facility] Last Admin: 01/12/18 06:23 Dose: Not Given Torsemide (Demadex -) 5 mg PO DAILY [facility] Last Admin: 01/12/18 10:38 Dose: 5 mg The patient is a 77M with a history of HTN and T2DM who presents with 4 weeks of pain with defecation and reported constipation. The patient endorses diffuse abdominal pain that is described as crampy. He also endorses sharp pain with defecation that occurs at the time of defecation, not before or after. patient now agreeable to colonoscopy -- scheduled for today.-- after unsuccessful attempt earlier in the week Will await clearance from G for discharge physical therapy evaluation as patient will need STR
[2018-01-12] MEDS ORDERED: POTASSIUM CHLORIDE TABS 20 MEQ TABLET.ER (FP) PO ONE (21:43)
[2018-01-12] MEDS: ATORVASTATIN CA 40 MG TABLET (FP) PO SCH (22:07)
[2018-01-13] MEDS: POLYETHYLENE GLYCOL 3350 119 GM BTL PO SCH ×2 (06:26→13:08)
[2018-01-13] MEDS: AMOXICILLIN 500 MG CAPSULE (FP) PO SCH ×2 (06:27→13:08)
[2018-01-13] MEDS: sitaGLIPtin PHOSPHATE 50 MG TABLET PO SCH (06:28)
--- NOTE | 2018-01-13 07:59 | DS ---
Physical Examination Vital Signs: Vital Signs Temperature 98.1 F 01/13/18 02:00 Pulse Rate 67 01/13/18 02:00 Respiratory Rate 20 01/13/18 02:00 Blood Pressure 119/60 01/13/18 02:00 O2 Sat by Pulse Oximetry (%) 97 01/12/18 21:00 Findings/Remarks: The patient is a 77M with a history of HTN and T2DM who presented to ER with 4 weeks of pain with defecation and reported constipation. The patient endorses diffuse abdominal pain that is described as crampy. He also endorsed sharp pain with defecation that occurs at the time of defecation, not before or after. The patient endorses associated nausea and NBNB V x2 today prior to admission On evaluation was found to have anal fissure, however in light of c/o chronic constipation-- patieint was preped and underwent colonoscopy 01/13, which he tolerated well. Per GI stable for d/c, however will benefit from STR -- arrangements in process Constitutional: Yes: No Distress, Calm, Thin Eyes: Yes: Conjunctiva Clear, EOM Intact HENT: Yes: Atraumatic, Normocephalic Neck: Yes: Supple, Trachea Midline Cardiovascular: Yes: Regular Rate and Rhythm Respiratory: Yes: Regular, CTA Bilaterally Gastrointestinal: Yes: Normal Bowel Sounds, Soft ...Rectal Exam: Yes: Deferred Renal/: Yes: WNL Breast(s): Yes: WNL Musculoskeletal: Yes: WNL Extremities: Yes: WNL. No: Cyanosis, Deformity Edema: No Peripheral Pulses WNL: Yes Integumentary: Yes: WNL Neurological: Yes: Alert, Oriented ...Motor Strength: LUE, LLE, RUE, RLE (deconditioned) Psychiatric: Yes: Alert, Oriented Discharge Summary Reason For Visit: DIABETES MELLITUS; CYSTITIS; LACTIC ACIDOSIS Current Active Problems Abdominal pain (Acute) Anal fissure (Acute) CVA (cerebral vascular accident) (Acute) Constipation (Acute) Dilated bile duct (Acute) Diverticulosis (Acute) Fecal impaction in rectum (Acute) Lactic acid acidosis (Acute) Leukocytosis (Acute) Pain associated with defecation (Acute) Sepsis (Acute) UTI (urinary tract infection) (Acute) Urinary retention (Acute) Condition: Improved - Instructions Referrals: Glen Mckay [Primary Care Provider] - Disposition: [facility] - Home Medications Comprehensive Discharge Medication List: Ambulatory Orders Aspirin 81 mg PO DAILY 12/20/17 Docusate Sodium [Colace] 100 mg PO DAILY 12/20/17 Folic Acid 1 mg PO DAILY 12/20/17 Metoprolol Succinate [Toprol Xl] 50 mg PO DAILY [facility] 25mg (2tabs daily) 12/20/17 Nitroglycerin Sublingual [Nitrostat -] 0.4 mg SL PRN PRN 12/20/17 Omeprazole 40 mg PO DAILY 12/20/17 Simvastatin 80 mg PO DAILY 12/20/17 Sitagliptin Phosphate [Januvia] 50 mg PO DAILY 12/20/17 Torsemide [Demadex -] 5 mg PO DAILY 12/20/17 miralax 1 scoop with 4-6 oz of fluid daily
[2018-01-13 08:27] LABS: ANION GAP 8 MMOL/L (8-16); BLOOD UREA NITROGEN 10 mg/dL (7-18); CALCIUM 8.3 mg/dL (8.5-10.1); CHLORIDE 102 mmol/L (98-107); CO2 24 mmol/L (21-32); CREATININE 0.9 mg/dL (0.55-1.3); GLUCOSE,RANDOM 130 mg/dL (74-106); POTASSIUM 4.3 mmol/L (3.5-5.1); SODIUM 134 mmol/L (136-145)
[2018-01-13] MEDS ORDERED: PT OWN MED DRAWER 7, Y5N ONE ×2 (10:00→13:08)
[2018-01-13] MEDS: HYDROCORTISONE 2.5% TOPICAL CREAM 30 GM TUBE PR SCH (10:01)
[2018-01-13] MEDS: TORSEMIDE 5 MG TABLET PO SCH (10:01)
[2018-01-13] MEDS: FOLIC ACID 1 MG TABLET (FP) PO SCH (10:01)
[2018-01-13] MEDS: ASPIRIN 81 MG CHEWABLE TABLETS PO SCH (10:01)
[2018-01-13 10:51] VITALS: BP 111/65; PULSE 73; TEMP 97.1
[2018-01-13 11:19] LABS: BASO % 0.4 % (0-2.0); EOS % 3.7 % (0-4.5); HEMATOCRIT 38.7 % (35.4-49); HEMOGLOBIN 12.5 GM/dL (11.7-16.9); LYMPH % 26.9 % (8-40); MCH 27.8 pg (25.7-33.7); MCHC 32.2 g/dl (32.0-35.9); MEAN CELL VOLUME 86.4 fl (80-96); MEAN PLT VOLUME 7.8 fl (7.5-11.1); MONO % 6.3 % (3.8-10.2); NEUT % 62.7 % (42.8-82.8); PLATELET COUNT 347 K/MM3 (134-434); RBC 4.48 M/mm3 (4.00-5.60); RDW 14.3 % (11.9-15.9); WHITE BLOOD COUNT 10.2 K/mm3 (4.0-10.0)
--- NOTE | 2018-01-13 17:46 | PATH ---
Surgical Pathology Report Patient Name: LENI SESAY [facility]. Rec. #: [id number] /Age/Gender: 1940 (Age: 77) / M Account: [id number] Location: [address] [place] [address]/[facility] Taken: 01/12/2018 Received: 01/12/2018 Reported: 01/13/2018 Physicians: David Johnson MD Specimen(s) Received RECTAL POLYP Clinical History Colon cancer screening Postoperative diagnosis: Rectal polyp, diverticulosis, Final Diagnosis RECTUM, POLYP, BIOPSY: TUBULAR ADENOMA. Electronically Signed Jes Louie M.D. Gross Description Received in formalin, labeled "BX polyp rectum" are 2 christopher, irregular portions of soft tissue measuring 0.1 and 0.2 cm. in greatest dimension. The specimens are submitted in toto in one cassette. MLSZ/01/12/2018 sanml/01/12/2018
== END 2018-01-13 14:52 | DRG 394 ==
LOC: JER 11:56 → JERBED 16:47 → J6S 21:26
PROVIDERS: ADMIT Family Medicine; ATTEND Family Medicine
PROC: 0DBP8ZX Excision of Rectum, Via Natural or Artificial Opening Endoscopic, Diagnostic (ICD-10-PCS; principal; 2018-01-12 10:00)
DX: K60.2 Anal fissure, unspecified (principal); E87.2 Acidosis; N39.0 Urinary tract infection, site not specified; I50.30 Unspecified diastolic (congestive) heart failure; I69.354 Hemiplegia and hemiparesis following cerebral infarction affecting left non-dominant side; I25.10 Atherosclerotic heart disease of native coronary artery without angina pectoris; B96.20 Unspecified Escherichia coli [E. coli] as the cause of diseases classified elsewhere; E78.00 Pure hypercholesterolemia, unspecified; R33.9 Retention of urine, unspecified; K59.00 Constipation, unspecified; E11.51 Type 2 diabetes mellitus with diabetic peripheral angiopathy without gangrene; J44.9 Chronic obstructive pulmonary disease, unspecified; K52.9 Noninfective gastroenteritis and colitis, unspecified; R10.84 Generalized abdominal pain; N40.0 Benign prostatic hyperplasia without lower urinary tract symptoms; I25.2 Old myocardial infarction; K83.8 Other specified diseases of biliary tract; I11.0 Hypertensive heart disease with heart failure; K57.90 Diverticulosis of intestine, part unspecified, without perforation or abscess without bleeding; D72.829 Elevated white blood cell count, unspecified; K21.9 Gastro-esophageal reflux disease without esophagitis; Z95.1 Presence of aortocoronary bypass graft; Z79.4 Long term (current) use of insulin; Z87.891 Personal history of nicotine dependence
CPT/HCPCS: 36415; 74177-TC; 80048; 80053; 81003; 81015; 82150; 82728; 82962; 82977; 83540; 83550; 83605; 83690; 83735; 84100; 85025; 85027; 85044; 85610; 86140; 87086; 87186; 88305-TC; 93005; 93010; 97116-GP; 97162-GP; 99285-25; J0131

== ENCOUNTER 2018-04-06 19:51 | Emergency (ER) | payer OTHER, BC ==
[2018-04-06 20:40] VITALS: BMI 20.3
--- NOTE | 2018-04-06 20:51 | PDOC ---
History of Present Illness - General Chief Complaint: Blood Sugar Problem Stated Complaint: Diabetes Time Seen by Provider: 04/06/18 20:48 History Source: Patient Exam Limitations: No Limitations - History of Present Illness Initial Comments: 04/06/18 21:52 77 yo M with a hx of CAD s/p CABG 2018, HTN, CVA (residual left sided weakness) , DM, CHF, HLD, and COPD presents to the emergency department after a BG reading of 420s was read after eating approximately 6x chocolate cele clauses at approximately 7pm. Per the patient, he was asymptomatic prior to the BG read. He states his daughter was upset with him for eating chocolates before dinner and checked his BG levels (he hasnt checked it in months) and proceeded to call the ambulance out of concern for its elevation. Normal BGs for him is 190s. Currently, he denies pain. Denies the following: fever, chills, ears/nose/ throat pain, nausea, vomiting, chest pain, SOB, abdominal pain, increased thirst , increased urinary frequency, dysuria, hematuria, diarrhea, melena, hematochezia, and leg pain/swelling. Pmhx: Refer to above Shx: CABG, cholecystectomy Allergies: NKDA Past History - Past Medical History Allergies/Adverse Reactions: Allergies Allergy/AdvReac Type Severity Reaction Status Date / Time No Known Allergies Allergy Verified 01/05/18 12:14 Home Medications: Ambulatory Orders Aspirin 81 mg PO DAILY 12/20/17 Docusate Sodium [Colace] 100 mg PO DAILY 12/20/17 Folic Acid 1 mg PO DAILY 12/20/17 Nitroglycerin Sublingual [Nitrostat -] 0.4 mg SL PRN PRN 12/20/17 Omeprazole 40 mg PO DAILY 12/20/17 Simvastatin 80 mg PO DAILY 12/20/17 Sitagliptin Phosphate [Januvia] 50 mg PO DAILY 12/20/17 Torsemide [Demadex -] 5 mg PO DAILY 12/20/17 Tobramycin 0.3% Ophth Soln [Tobrex Ophthalmic Solution -] 1 drop OD Q4HWA 7 Days #2.5 ml 12/21/17 Amoxicillin - [Amoxicillin 500mg Capsule -] 500 mg PO TID #0 capsule 01/13/18 Atorvastatin Ca [Lipitor] 40 mg PO HS tablet 01/13/18 Hydrocortisone 2.5% Topical Cr [Anusol-Hc -] 1 applic [place] DAILY tube 01/13/18 Metoprolol Succinate [Toprol XL -] 50 mg PO DAILY tab.sr.24h 01/13/18 Polyethylene Glycol 3350 [Miralax 119 gm Btl -] 17 gm PO TID bottle 01/13/18 Cardiac Disorders: Yes (CAD - SINGLE BYPASS) CVA: Yes (2010) COPD: No Diabetes: Yes (NIDDM) HTN: Yes Hypercholesterolemia: Yes - Surgical History Cardiac Surgery: Yes (SINGLE BYPASS) - Immunization History Immunization Up to Date: Yes - Suicide/Smoking/Psychosocial Hx Smoking History: Never smoked Have you smoked in the past 12 months: No If you are a former smoker, when did you quit?: 6months Information on smoking cessation initiated: No Hx Alcohol Use: Yes Drug/Substance Use Hx: No Substance Use Type: None Review of Systems - Review of Systems Able to Perform ROS?: Yes Is the patient limited French proficient: No Constitutional: No: Chills, Diaphoresis, Fever, Weakness HEENTM: No: Eye Pain, Recent change in vision, Ear Pain, Nose Pain, Throat Pain , Mouth Pain Respiratory: No: Cough, Shortness of Breath, SOB with Exertion, Hemoptysis Cardiac (ROS): No: Chest Pain, Lightheadedness, Palpitations, Syncope, Chest Tightness ABD/GI: No: Constipated, Diarrhea, Nausea, Poor Appetite, Poor Fluid Intake, Rectal Bleeding, Vomiting, Indigestion, Abdominal cramping, Tarry Stools : No: Burning, Dysuria, Hematuria, Urgency Musculoskeletal: No: Back Pain, Joint Pain, Neck Pain Integumentary: No: Bruising, Flushing, Pruritus Neurological: No: Headache, Numbness, Tingling, Tremors, Ataxia, Dizziness Psychiatric: No: Stressors Endocrine: No: Unexplained Weight Gain, Unexplained Weight Loss Hematologic/Lymphatic: No: Anemia *Physical Exam - Vital Signs Last Vital Signs Temp Pulse Resp BP Pulse Ox 97.1 F L 93 H 18 125/75 97 04/06/18 19:51 04/06/18 19:51 04/06/18 19:51 04/06/18 19:51 04/06/18 19:51 - Physical Exam General Appearance: Yes: Nourished, Appropriately Dressed. No: Apparent Distress, Intoxicated HEENT: positive: EOMI, CATRINA, Normal Voice, Symmetrical, Hearing Grossly Normal. negative: Pale Conjunctivae, Scleral Icterus (R), Scleral Icterus (L), Muffled /Hoarse voice, Pharyngeal Erythema, Tonsillar Exudate, Tonsillar Erythema, Sinus Tenderness, Excessive drooling Neck: positive: Trachea midline. negative: Tender, Lymphadenopathy (R), Lymphadenopathy (L), Tender lateral, Tender midline Respiratory/Chest: positive: Lungs Clear, Normal Breath Sounds. negative: Chest Tender, Respiratory Distress, Accessory Muscle Use, Crackles, Rales, Rhonchi, Stridor, Wheezing Cardiovascular: positive: Regular Rhythm, Regular Rate, S1, S2, Systolic Murmur (grade 1) Gastrointestinal/Abdominal: positive: Normal Bowel Sounds, Flat, Soft. negative : Tender, Distended Lymphatic: negative: Adenopathy Musculoskeletal: positive: Normal Inspection. negative: CVA Tenderness Extremity: positive: Normal Capillary Refill, Normal Inspection, Normal Range of Motion. 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 NML intact, Fully Oriented, Alert, Normal Mood/ Affect, Normal Response Moderate Sedation - Procedure Monitoring Vital Signs: Procedure Monitoring Vital Signs Temperature 97.1 F L 04/06/18 19:51 Pulse Rate 93 H 04/06/18 19:51 Respiratory Rate 18 04/06/18 19:51 Blood Pressure 125/75 04/06/18 19:51 O2 Sat by Pulse Oximetry (%) 97 04/06/18 19:51 Medical Decision Making - Medical Decision Making 04/06/18 22:28 77 yo M with a hx of CAD s/p CABG 2018, HTN, CVA (residual left sided weakness) , DM, CHF, HLD, and COPD presents to the emergency department after a BG reading of 420s was read after eating approximately 6x chocolate cele clauses at approximately 7pm. Initial vitals: Initial Vital Signs Temp Pulse Resp BP Pulse Ox 97.1 F L 93 H 18 125/75 97 04/06/18 19:51 04/06/18 19:51 04/06/18 19:51 04/06/18 19:51 04/06/18 19:51 Work up: ddx: dka, hhs, elevated BG secondary to poor medication compliance vs diet vs infectious etiologies. Laboratory Tests 04/06/18 04/06/18 20:26 21:04 POC Glucometer [phone] Urine Color Ltyellow Urine Appearance Clear Urine pH 5.0 Ur Specific [place] 1.015 Urine Protein Negative Urine Glucose (UA) 3+ H Urine Ketones Negative Urine Blood Negative Urine Nitrite Negative Urine Bilirubin Negative Urine Urobilinogen Negative Ur Leukocyte Esterase Negative Signed out patient with pending CBC and CMP labs to Dr. Sorto. *DC/Admit/Observation/Transfer Diagnosis at time of Disposition: Elevated random blood glucose level - Discharge Dispostion Condition at time of disposition: Fair - Referrals - Patient Instructions - Post Discharge Activity
--- NOTE | 2018-04-06 21:14 | PDOC ---
Attending Attestation - HPI HPI: 04/06/18 21:19 The patient is a 77 year old male with a past medical history of HTN, s/p CABG, non insulin dependent diabetes, CAD, CHF here today for evaluation of high blood sugar. The patients daughter reports that the patients blood sugar was in the 400s after eating 4 candy [place]. Patient denies headache, lightheadedness. Denies fever, chills. Denies chest pain, shortness of breath. Denies nausea, vomiting, diarrhea, abdominal pain. Denies lower extremity edema. Denies urinary symptoms. Denies increased thirst. Allergies: NKA PCP: none reported - Physicial Exam PE: 04/06/18 21:33 Constitutional: Awake, alert, oriented. No acute distress. Head: Normocephalic. Atraumatic Eyes: +Bilateral injected sclera. PERRL. EOMI. Conjunctivae are not pale. ENT: Mucous membranes are moist and intact. Posterior pharynx without exudates or erythema. Uvula midline. Neck: Supple. Full ROM. No lymphadenopathy. Cardiovascular: Regular rate. Regular rhythm. S1, S2 regular. Distal pulses are 2+ and symmetric. Pulmonary/Chest: No evidence of respiratory distress. Clear to auscultation bilaterally No wheezing, rales or rhonchi. Abdominal: Soft and non-distended. There is no tenderness. No rebound, guarding or rigidity. No organomegaly. No palpable masses. Good bowel sounds. Back: No CVA tenderness. Musculoskeletal: No edema. No cyanosis. No clubbing. Full range of motion in all extremities. Nocalf tenderness. Radial/pedal pulses are intact and 2+ bilaterally Skin: Skin is warm and dry. No petechiae. No purpura. Neurological: +Residual left sided weakness from stroke. Alert and oriented to person, place, and time. Cranial nerves II-XII are grossly intact. Normal speech. Strength is grossly symmetric. No sensory deficits. Psychiatric: Good eye contact. Normal interaction, affect and behavior. <Torin Ordaz - Last Filed: 04/06/18 21:33> - Resident Resident Name: Shantanu Wolf - ED Attending Attestation I have performed the following: I have examined & evaluated the patient, The case was reviewed & discussed with the resident, I agree w/resident's findings & plan, Exceptions are as noted - Medical Decision Making 12/19/18 21:13 I, Dr. Maame Rocha, DO, attest that this document has been prepared under my direction and personally reviewed by me in its entirety. I further attest, that it accurately reflects all work, treatment, procedures and medical decision -making performed by me. 04/06/18 21:36 a/p: 77yo male with hx of dm - doesn't check his glucose -tonight ate multiple pieces of chocolate just prior to dinner -daughter saw him eating chocolate and then checked his glucose which was >400 after eating the chocolate -pt with hx of cva and L sided residual weakness -no cp/sob -no abd pain, no dysuria, no cantrell -no blurred vision -pt denies all somatic complaints -will check labs, ua -will orally hydrate -pt is nontoxic in appearance 04/07/18 00:12 glu 284 pt feeling better 04/07/18 01:28 labs reviewed pt feeling better stable for dc to home <Maame Rocha - Last Filed: 04/07/18 01:28>
[2018-04-06] MEDS ORDERED: SODIUM CHLORIDE 500 ML IV STA (21:19)
[2018-04-06 21:53] LABS: URINE APPEARANCE CLEAR; URINE BILIRUBIN NEGATIVE (<2.0 mg/dL); URINE COLOR LTYELLOW; URINE GLUCOSE (UA) 3+ (NEGATIVE); URINE KETONE NEGATIVE (NEGATIVE); URINE LEUK ESTERASE NEGATIVE (NEGATIVE); URINE NITRITE NEGATIVE (NEGATIVE); URINE PROTEIN NEGATIVE (NEGATIVE); URINE UROBILINOGEN NEGATIVE mg/dL (0.2-1.0)
[2018-04-06 23:04] LABS: ALBUMIN 3.4 g/dl (3.4-5.0); ALK PHOS 81 U/L (45-117); ANION GAP 5 MMOL/L (8-16); BILIRUBIN,TOTAL 0.3 mg/dL (0.2-1); BLOOD UREA NITROGEN 16 mg/dL (7-18); CALCIUM 8.7 mg/dL (8.5-10.1); CHLORIDE 101 mmol/L (98-107); CO2 28 mmol/L (21-32); CREATININE 1.2 mg/dL (0.55-1.3); GLUCOSE,RANDOM 284 mg/dL (74-106); POTASSIUM 4.2 mmol/L (3.5-5.1); SGOT/AST 22 U/L (15-37); SGPT/ALT 22 U/L (13-61); SODIUM 134 mmol/L (136-145); TOT PROT 6.3 g/dl (6.4-8.2)
[2018-04-07 00:12] LABS: BASO % 0.6 % (0-2.0); EOS % 4.8 % (0-4.5); HEMATOCRIT 32.8 % (35.4-49); HEMOGLOBIN 11.4 GM/dL (11.7-16.9); LYMPH % 34.5 % (8-40); MCH 29.4 pg (25.7-33.7); MCHC 34.9 g/dl (32.0-35.9); MEAN CELL VOLUME 84.2 fl (80-96); MEAN PLT VOLUME 8.2 fl (7.5-11.1); MONO % 5.3 % (3.8-10.2); NEUT % 54.8 % (42.8-82.8); PLATELET COUNT 209 K/MM3 (134-434); RBC 3.89 M/mm3 (4.00-5.60); RDW 15.7 % (11.9-15.9); WHITE BLOOD COUNT 8.1 K/mm3 (4.0-10.0)
--- NOTE | 2018-04-07 01:14 | PDOC ---
*Physical Exam - Vital Signs Last Vital Signs Temp Pulse Resp BP Pulse Ox 97.1 F L 93 H 18 125/75 97 04/06/18 19:51 04/06/18 19:51 04/06/18 19:51 04/06/18 19:51 04/06/18 19:51 ED Treatment Course - LABORATORY CBC & Chemistry Diagram: 04/06/18 23:55 04/06/18 21:47 - ADDITIONAL ORDERS Additional order review: Laboratory Results 04/06/18 04/06/18 04/06/18 21:47 21:04 20:26 Sodium 134 L Potassium 4.2 Chloride 101 Carbon Dioxide 28 Anion Gap 5 L BUN 16 Creatinine 1.2 Creat Clearance w eGFR 58.86 POC Glucometer 396.77358 Random Glucose 284 H Calcium 8.7 Total Bilirubin 0.3 AST 22 ALT 22 Alkaline Phosphatase 81 Total Protein 6.3 L Albumin 3.4 Urine Color Ltyellow Urine Appearance Clear Urine pH 5.0 Ur Specific [place] 1.015 Urine Protein Negative Urine Glucose (UA) 3+ H Urine Ketones Negative Urine Blood Negative Urine Nitrite Negative Urine Bilirubin Negative Urine Urobilinogen Negative Ur Leukocyte Esterase Negative 04/06/18 04/06/18 23:55 21:04 RBC 3.89 L MCV 84.2 MCHC 34.9 RDW 15.7 MPV 8.2 Neutrophils % 54.8 Lymphocytes % 34.5 D Monocytes % 5.3 Eosinophils % 4.8 H Basophils % 0.6 POC Glucometer [id number] - Medications Given in the ED: ED Medications Discontinued Medications Generic Name Dose Route Start Last Admin Trade Name Freq PRN Reason Stop Dose Admin Sodium Chloride 500 mls @ 500 mls/hr 04/06/18 21:19 04/06/18 22:30 Normal Saline - IV 04/06/18 22:18 500 mls/hr ASDIR STA Administration Medical Decision Making - Medical Decision Making 04/07/18 01:[address] Wolf Pt presents for elevated BG after eating chocolate today. PMH DM. BG in the 400s , no concerning s/s BG in the ED 390s on finger stick after fluids reduced in the 280s CBC WNL Pt has no further concerns DC home with PCP follow up and strict return precautions *DC/Admit/Observation/Transfer Diagnosis at time of Disposition: Elevated random blood glucose level - Discharge Dispostion Disposition: HOME Condition at time of disposition: Fair Decision to Admit order: No - Referrals - Patient Instructions Printed Discharge Instructions: How to Check Your Blood Glucose Additional Instructions: Please make an appointment with your Primary Care Doctor within the next 24-48 hours regarding your ER visit today. Return to the Emergency Room for new or concerning symptoms including but not limited to: lightheadedness, loss of consciousness, headaches, confusion or elevated blood sugars. Continue taking your home medications as prescribed by your regular Doctors. Thank you - Post Discharge Activity
[2018-04-07 09:00] VITALS: BP 124/70; PULSE 69; TEMP 98
== END 2018-04-07 10:21 | disposition home or self-care (01) ==
LOC: JER 19:51
PROC: 3E0337Z Introduction of Electrolytic and Water Balance Substance into Peripheral Vein, Percutaneous Approach (ICD-10-PCS; principal; 2018-04-06)
DX: E11.65 Type 2 diabetes mellitus with hyperglycemia (principal); Z79.84 Long term (current) use of oral hypoglycemic drugs; I25.10 Atherosclerotic heart disease of native coronary artery without angina pectoris; I11.0 Hypertensive heart disease with heart failure; Z95.1 Presence of aortocoronary bypass graft; E78.00 Pure hypercholesterolemia, unspecified; Z87.09 Personal history of other diseases of the respiratory system; I69.854 Hemiplegia and hemiparesis following other cerebrovascular disease affecting left non-dominant side
CPT/HCPCS: 36415; 80053; 81003; 82962; 85025; 99282-25

== ENCOUNTER 2018-06-18 05:09 | Emergency (ER) | payer OTHER, BC ==
--- NOTE | 2018-06-18 05:42 | PDOC ---
History of Present Illness - General Chief Complaint: Injury Stated Complaint: FALL Time Seen by Provider: 06/18/18 05:23 History Source: Patient Exam Limitations: No Limitations - History of Present Illness Initial Comments: 06/18/18 05:43 Pt is a 77yo M with PMH of CAD s/p CABG 2017, CVA (w/ L sided deficits 2010), CHF, COPD, NIDDM, HTN BIBA s/p fall. Pt states that he woke up to use the bathroom and he ambulates using a walker. He states that he must have tripped due to bad footing and fell. He states he bumped the L side of his head on the wooden floor but did not lose consciousness. He was on the floor for 1 hour yelling for help because he was unable to get up by himself. His neighbors heard him and called EMS. Pt is awake. He is denying LOC, headache, changes in vision, chest pain, sob, joint pain, muscle pain, back pain. Takes ASA, not on other ACs. PMD: Nely PMH: see hpi PSH: see hpi Meds: see med rec Allergies: nkda Past History - Past Medical History Allergies/Adverse Reactions: Allergies Allergy/AdvReac Type Severity Reaction Status Date / Time No Known Allergies Allergy Verified 01/05/18 12:14 Home Medications: Ambulatory Orders Aspirin 81 mg PO DAILY 12/20/17 Docusate Sodium [Colace] 100 mg PO DAILY 12/20/17 Folic Acid 1 mg PO DAILY 12/20/17 Nitroglycerin Sublingual [Nitrostat -] 0.4 mg SL PRN PRN 12/20/17 Omeprazole 40 mg PO DAILY 12/20/17 Simvastatin 80 mg PO DAILY 12/20/17 Sitagliptin Phosphate [Januvia] 50 mg PO DAILY 12/20/17 Torsemide [Demadex -] 5 mg PO DAILY 12/20/17 Tobramycin 0.3% Ophth Soln [Tobrex Ophthalmic Solution -] 1 drop OD Q4HWA 7 Days #2.5 ml 12/21/17 Atorvastatin Ca [Lipitor] 40 mg PO HS tablet 01/13/18 Hydrocortisone 2.5% Topical Cr [Anusol-Hc -] 1 applic [place] DAILY tube 01/13/18 Metoprolol Succinate [Toprol XL -] 50 mg PO DAILY tab.sr.24h 01/13/18 Polyethylene Glycol 3350 [Miralax 119 gm Btl -] 17 gm PO TID bottle 01/13/18 Cardiac Disorders: Yes (CAD - SINGLE BYPASS) CVA: Yes (2010) COPD: No Diabetes: Yes (NIDDM) HTN: Yes Hypercholesterolemia: Yes - Surgical History Cardiac Surgery: Yes (SINGLE BYPASS) - Immunization History Immunization Up to Date: Yes - Suicide/Smoking/Psychosocial Hx Smoking History: Never smoked Have you smoked in the past 12 months: No If you are a former smoker, when did you quit?: 6months Information on smoking cessation initiated: No Hx Alcohol Use: No Drug/Substance Use Hx: No Substance Use Type: None Review of Systems - Review of Systems Constitutional: No: Symptoms Reported HEENTM: No: Symptoms Reported Respiratory: No: Symptoms reported Cardiac (ROS): No: Symptoms Reported ABD/GI: No: Symptoms Reported : No: Symptoms Reported Musculoskeletal: No: Symptoms Reported Integumentary: No: Symptoms Reported Neurological: No: Symptoms reported *Physical Exam - Vital Signs Last Vital Signs Temp Pulse Resp BP Pulse Ox 97.7 F 68 19 156/72 06/18/18 05:10 06/18/18 05:10 06/18/18 05:10 06/18/18 05:10 - Physical Exam General Appearance: Yes: Nourished, Appropriately Dressed. No: Apparent Distress HEENT: positive: EOMI, CATRINA, Pharynx Normal, Other (bilateral conjuctival injection with yellow exudates. ). negative: Tonsillar Exudate Neck: positive: Trachea midline, Supple. negative: Lymphadenopathy (R), Lymphadenopathy (L) Respiratory/Chest: positive: Lungs Clear, Normal Breath Sounds. negative: Chest Tender Cardiovascular: positive: Regular Rhythm, Regular Rate, S1, S2. negative: Edema , JVD, Murmur Vascular Pulses: Carotid (R): 2+, Carotid (L): 2+ Gastrointestinal/Abdominal: positive: Normal Bowel Sounds, Soft. negative: Distended, Guarding, Rebound Musculoskeletal: positive: Normal Inspection. 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 Pt states that he woke up to use the bathroom and he ambulates using a walker. He states that he must have tripped due to bad footing and fell. He states he bumped the L side of his head on the wooden floor but did not lose consciousness. He was on the floor for 1 hour yelling for help because he was unable to get up by himself. His neighbors heard him and called EMS. Pt is awake. He is denying LOC, headache, changes in vision, chest pain, sob, joint pain, muscle pain, back pain. Takes ASA, not on other ACs. Vitals: wnl PE: bilateral chemosis with yellow exudates. Normal neurological exam. Normal heart sounds, lungs cta Mechanical fall w/o LOC. No complaints. On ground for 1 hour. Not on AC. Pt is reliable historian, low suspicion for syncope, CVA. -CT head and Cspine -Labs -EKG Labs significant for WBC 12. Other labs wnl. -Pending EKG and CT. Likely DC home. Signed out to Dr. Gomes *DC/Admit/Observation/Transfer Diagnosis at time of Disposition: Fall Qualifiers: Encounter type: initial encounter Qualified Code(s): W19.XXXA - Unspecified fall, initial encounter - Discharge Dispostion Condition at time of disposition: Fair - Referrals - Patient Instructions - Post Discharge Activity
[2018-06-18 06:14] LABS: BASO % 0.6 % (0-2.0); EOS % 1.7 % (0-4.5); HEMATOCRIT 37.5 % (35.4-49); HEMOGLOBIN 12.8 GM/dL (11.7-16.9); LYMPH % 16.5 % (8-40); MCH 29.8 pg (25.7-33.7); MCHC 34.1 g/dl (32.0-35.9); MEAN CELL VOLUME 87.6 fl (80-96); MEAN PLT VOLUME 7.4 fl (7.5-11.1); MONO % 6.1 % (3.8-10.2); NEUT % 75.1 % (42.8-82.8); PLATELET COUNT 313 K/MM3 (134-434); RBC 4.28 M/mm3 (4.00-5.60); RDW 13.6 % (11.9-15.9); WHITE BLOOD COUNT 12.2 K/mm3 (4.0-10.0)
--- NOTE | 2018-06-18 06:25 | PDOC ---
Attending Attestation - Resident Resident Name: StacieGia - ED Attending Attestation I have performed the following: I have examined & evaluated the patient, The case was reviewed & discussed with the resident, I agree w/resident's findings & plan, Exceptions are as noted - HPI HPI: 06/18/18 05:49 Mr. Hernandez is a 77 yo M presenting to the ER s/p fall at home Pt has a h/o CAD s/p CABG 2017, CVA (w/ L sided deficits 2010, ambulatory with the assistance of a walker), CHF, COPD, NIDDM, HTN. Pt reports he was in his usual state of health when he got up from bed to go to the bathroom He believes that he must have tripped No preceding chest pain, shortness of breath, palpitations Pt was unable to get himself up to standing Called for help for 1 hour until his neighbors got help - Physicial Exam PE: 06/18/18 06:25 GENERAL: The patient is in no acute distress. Eyes: exudates bilateral eyes, no conjunctival injection ENT: Ears normal, nares patent, oropharynx clear without exudates. NECK: Normal range of motion, supple, no nuchal rigidity, no midline tenderness to palpation LUNGS: Breath sounds equal, clear to auscultation bilaterally. HEART:Regular rate and rhythm, normal S1 and S2 without murmur, rub or gallop. ABDOMEN: Soft, nontender, normoactive bowel sounds. EXTREMITIES: Normal range of motion, no deformities NEUROLOGICAL: Cranial nerves II through XII grossly intact. Normal speech. left sided weakness (per pt baseline) SKIN: no exposed skin, no rashes noted - Medical Decision Making 06/18/18 06:27 77 yo M s/p fall from standing No head trauma, no LOC, no anticoagulants No complaints of long bone pain Will do: Labs CT head and c spine EKG Re assess
[2018-06-18 06:35] VITALS: BMI 20.3
[2018-06-18 06:51] LABS: ALBUMIN 3.2 g/dl (3.4-5.0); ALK PHOS 80 U/L (45-117); ANION GAP 7 MMOL/L (8-16); BILIRUBIN,TOTAL 0.3 mg/dL (0.2-1); BLOOD UREA NITROGEN 17 mg/dL (7-18); CALCIUM 8.7 mg/dL (8.5-10.1); CHLORIDE 103 mmol/L (98-107); CO2 26 mmol/L (21-32); CREATININE 1.1 mg/dL (0.55-1.3); GLUCOSE,RANDOM 176 mg/dL (74-106); SGOT/AST 12 U/L (15-37); SGPT/ALT 14 U/L (13-61); SODIUM 135 mmol/L (136-145); TOT PROT 6.7 g/dl (6.4-8.2)
--- NOTE | 2018-06-18 07:46 | PDOC ---
*Physical Exam - Vital Signs Last Vital Signs Temp Pulse Resp BP Pulse Ox 97.7 F 68 19 156/72 06/18/18 05:10 06/18/18 05:10 06/18/18 05:10 06/18/18 05:10 ED Treatment Course - LABORATORY CBC & Chemistry Diagram: 06/18/18 05:52 06/18/18 06:04 - ADDITIONAL ORDERS Additional order review: Laboratory Results 06/18/18 06/18/18 06:04 06:04 Sodium 135 L Potassium 4.0 Chloride 103 Carbon Dioxide 26 Anion Gap 7 L BUN 17 Creatinine 1.1 Creat Clearance w eGFR > 60 Random Glucose 176 H Calcium 8.7 Total Bilirubin 0.3 AST 12 L ALT 14 Alkaline Phosphatase 80 Creatine Kinase 42 Troponin I < 0.02 Total Protein 6.7 Albumin 3.2 L 06/18/18 05:52 RBC 4.28 MCV 87.6 MCHC 34.1 RDW 13.6 D MPV 7.4 L Neutrophils % 75.1 D Lymphocytes % 16.5 D Monocytes % 6.1 Eosinophils % 1.7 Basophils % 0.6 Medical Decision Making - Medical Decision Making Care assumed from Dr. Quinones 77yo M with PMH of CVA, CAD, CHF presenting after mechanical fall. Not on AC. Pending CTH/Cspine, UA, EKG Patient reports he is unable to give us a urine sample at this time. 06/18/18 07:45 EKG: rate 94, QTc 480, Sinus rhythm with premature supraventricular complexes and with occasional premature ventricular complexes. nonspecific t wave abnormality. abnormal ecg 06/18/18 09:26 UA negative for infection Pending CT reports 06/18/18 09:35 CT Cspine: Straightening and moderate degenerative arthritis with no fracture or acute pathology. Please see above discussion. CT Head: IMPRESSION: No evidence of acute intracranial pathology. 06/18/18 10:35 Patient able to ambulate with assistance (as he does not have his walker here) 06/18/18 11:21 Spoke with patient's daughter who is home and able to assist him into the residence 06/18/18 12:07 Patient awaiting transport for discharge. *DC/Admit/Observation/Transfer Diagnosis at time of Disposition: Fall Qualifiers: Encounter type: initial encounter Qualified Code(s): W19.XXXA - Unspecified fall, initial encounter - Discharge Dispostion Disposition: HOME Condition at time of disposition: Stable - Referrals - Patient Instructions Printed Discharge Instructions: How to Prevent Falls Additional Instructions: You came to the emergency room for a fall. CT imaging was negative for any acute pathology. Call your primary care physician regarding this emergency visit and make an appointment for follow-up. Your care is not complete until you do so. Immediate medical attention is required if you experience: any chest pain, palpitations, shortness of breath, severe headaches, changes in vision, focal numbness or weakness, any severe abdominal pain, any black/tarry stool, or any other new or concerning symptoms. If you think you have an emergency, call for medical help right away. - Post Discharge Activity
[2018-06-18 09:24] LABS: URINE APPEARANCE CLEAR; URINE BILIRUBIN NEGATIVE (<2.0 mg/dL); URINE COLOR YELLOW; URINE GLUCOSE (UA) NEGATIVE (NEGATIVE); URINE KETONE NEGATIVE (NEGATIVE); URINE LEUK ESTERASE NEGATIVE (NEGATIVE); URINE NITRITE NEGATIVE (NEGATIVE); URINE PROTEIN NEGATIVE (NEGATIVE); URINE UROBILINOGEN NEGATIVE mg/dL (0.2-1.0)
[2018-06-18 12:09] VITALS: BP 105/62; PULSE 100; TEMP 98.2
--- NOTE | 2018-06-21 13:54 | EKG ---
Test Reason : Blood Pressure : / mmHG Vent. Rate : 094 BPM Atrial Rate : 094 BPM P-R Int : 140 ms QRS Dur : 098 ms QT Int : 384 ms P-R-T Axes : 068 088 079 degrees QTc Int : 480 ms SINUS RHYTHM WITH PREMATURE SUPRAVENTRICULAR COMPLEXES AND WITH OCCASIONAL PREMATURE VENTRICULAR COMPLEXES NONSPECIFIC T WAVE ABNORMALITY ABNORMAL ECG WHEN COMPARED WITH ECG OF 05-JAN-2018 20:45, PREMATURE VENTRICULAR COMPLEXES ARE NOW PRESENT PREMATURE SUPRAVENTRICULAR COMPLEXES ARE NOW PRESENT NONSPECIFIC T WAVE ABNORMALITY NO LONGER EVIDENT IN INFERIOR LEADS T WAVE INVERSION LESS EVIDENT IN ANTERIOR LEADS Confirmed by MD Mcclure Daniel ([id number]) on 06/21/2018 1:54:11 PM Referred By: Confirmed By:Torin Mcclure MD
== END 2018-06-18 14:49 | disposition home or self-care (01) ==
LOC: JER 05:09
DX: S09.8XXA Other specified injuries of head, initial encounter (principal); W01.198A Fall on same level from slipping, tripping and stumbling with subsequent striking against other object, initial encounter; Y93.01 Activity, walking, marching and hiking; Y92.012 Bathroom of single-family (private) house as the place of occurrence of the external cause; Y99.8 Other external cause status; I25.810 Atherosclerosis of coronary artery bypass graft(s) without angina pectoris; I11.0 Hypertensive heart disease with heart failure; Z95.1 Presence of aortocoronary bypass graft; E11.9 Type 2 diabetes mellitus without complications; Z79.84 Long term (current) use of oral hypoglycemic drugs; J44.9 Chronic obstructive pulmonary disease, unspecified; I69.854 Hemiplegia and hemiparesis following other cerebrovascular disease affecting left non-dominant side; R26.89 Other abnormalities of gait and mobility; Z99.89 Dependence on other enabling machines and devices
CPT/HCPCS: 36415; 70450-TC; 72125-TC; 80053; 81003; 82550; 84484; 85025; 93005; 93010; 99282-25

== ENCOUNTER 2021-05-27 14:46 | Inpatient (IN) | payer OTHER, BC ==
[2021-05-27] MEDS ORDERED: SODIUM CHLORIDE 1,800 ML IV ONE (15:40)
[2021-05-27] MEDS ORDERED: SODIUM CHLORIDE 0.9% 500 ML INFUS.BAG IV ONE (16:23)
[2021-05-27 18:04] LABS: BASO % 1.2 % (0-2.0); EOS % 1.9 % (0-4.5); HEMOGLOBIN 12.2 GM/dL (11.7-16.9); LYMPH % 18.3 % (8-40); MCH 29.4 pg (25.7-33.7); MCHC 34.1 g/dl (32.0-35.9); MEAN CELL VOLUME 86.2 fl (80-96); MEAN PLT VOLUME 8.8 fl (7.5-11.1); MONO % 4.1 % (3.8-10.2); NEUT % 74.5 % (42.8-82.8); PLATELET COUNT 375 10^3/uL (134-434); RBC 4.17 M/mm3 (4.00-5.60); RDW 14.2 % (11.9-15.9); WHITE BLOOD COUNT 9.3 K/mm3 (4.0-10.0)
[2021-05-27 18:11] LABS: INR 1.21 (0.83-1.09)
[2021-05-27 18:14] LABS: ACTIVATED PTT 35.3 SECONDS (25.2-36.5)
[2021-05-27] MEDS ORDERED: PIPERACILLIN/TAZOB 4.5 GM 4.5 GM in DEXTROSE 5%-WATER 100 ML IVPB ONE (18:14)
[2021-05-27] MEDS ORDERED: VANCOMYCIN 1,000 MG in DEXTROSE 5%-WATER - 250 ML IVPB ONE (18:14)
[2021-05-27 18:25] LABS: ALBUMIN 2.6 g/dl (3.4-5.0); CALCIUM 8.7 mg/dL (8.5-10.1)
[2021-05-27 18:29] LABS: TOT PROT 6.9 g/dl (6.4-8.2)
[2021-05-27] MEDS ORDERED: PIPERACILLIN/TAZOB 4.5 GM 4.5 GM/100 ML BAG IVPB ONE (18:30)
[2021-05-27] MEDS ORDERED: VANCOMYCIN 1 GRAM (PRE-DOCKED) 1,000 MG/250 ML BAG IVPB ONE (18:32)
[2021-05-27 18:36] LABS: LACTIC ACID 2.2 mmol/L (0.4-2.0)
[2021-05-27] MEDS ORDERED: D5-1/2NS+10 MEQ KCL - 10 MEQ/1,000 ML INFUS.BAG IV SCH (21:00)
[2021-05-27] MEDS: ENOXAPARIN NA (PORCINE) 40 MG/0.4 ML DISP.SYRIN SQ SCH (22:36)
[2021-05-27] MEDS: ATORVASTATIN CA 80 MG TABLET (FP) PO SCH (22:36)
[2021-05-27] MEDS: PANTOPRAZOLE 40 MG TABLET PO SCH (22:36)
[2021-05-27] MEDS ORDERED: ATORVASTATIN CA 80 MG TABLET (FP) ONE (23:46)
[2021-05-27] MEDS ORDERED: PANTOPRAZOLE 40 MG TABLET ONE (23:46)
[2021-05-27] MEDS ORDERED: ENOXAPARIN NA (PORCINE) 40 MG/0.4 ML DISP.SYRIN SQ ONE (23:46)
[2021-05-28] MEDS ORDERED: INSULIN (NOVOLOG) ASPART 100 UNITS/ML 10ML VIAL ONE (06:24)
[2021-05-28] MEDS: INSULIN SLIDING SCALE (NOVOLOG) 1 VIAL SQ SCH ×3 (06:28→17:35)
[2021-05-28] MEDS ORDERED: D5-1/2NS+10 MEQ KCL - 10 MEQ/1,000 ML INFUS.BAG IV SCH (08:04)
[2021-05-28 09:33] LABS: HEMATOCRIT 37.6 % (35.4-49); HEMOGLOBIN 12.2 GM/dL (11.7-16.9); MCH 29.1 pg (25.7-33.7); MCHC 32.3 g/dl (32.0-35.9); PLATELET COUNT 225 10^3/uL (134-434); RBC 4.18 M/mm3 (4.00-5.60); RDW 14.5 % (11.9-15.9); WHITE BLOOD COUNT 27.5 K/mm3 (4.0-10.0)
[2021-05-28 09:57] LABS: CALCIUM 8.4 mg/dL (8.5-10.1)
[2021-05-28 09:58] LABS: EPI CELLS >36 /uL (0-25.1); HYALINE CASTS 32 /uL (0-3.1); URINE APPEARANCE CLOUDY; URINE BACTERIA 55 /uL (0-1359); URINE BILIRUBIN NEGATIVE (NEGATIVE); URINE COLOR YELLOW; URINE GLUCOSE (UA) NEGATIVE (NEGATIVE); URINE KETONE NEGATIVE (NEGATIVE); URINE LEUK ESTERASE 2+ (NEGATIVE); URINE NITRITE NEGATIVE (NEGATIVE); URINE PROTEIN 1+ (NEGATIVE); URINE RBC 835 /uL (0-23.9); URINE WBC 96 /uL (0-25.8)
[2021-05-28 09:59] LABS: CREATININE 1.1 mg/dL (0.55-1.3)
[2021-05-28] MEDS ORDERED: ASPIRIN COATED 81 MG TABLET.EC PO SCH (10:00)
[2021-05-28 10:05] LABS: LACTIC ACID 4.3 mmol/L (0.4-2.0)
[2021-05-28] MEDS ORDERED: POTASSIUM CHLORIDE TABS 20 MEQ TABLET.ER (FP) PO ONE (10:15)
[2021-05-28] MEDS: PANTOPRAZOLE 40 MG TABLET PO SCH (11:00)
[2021-05-28] MEDS: ENOXAPARIN NA (PORCINE) 40 MG/0.4 ML DISP.SYRIN SQ SCH (11:00)
[2021-05-28] MEDS: amLODIPine BESYLATE 2.5 MG TABLET (FP) PO SCH (11:00)
[2021-05-28 11:01] LABS: ANISOCYTOSIS 1+; MACROCYTOSIS 0; PLATELET ESTIMATE NORMAL
[2021-05-28] MEDS ORDERED: PIPERACILLIN/TAZOBACTAM 4.5 GM VIAL IVPB ONE ×3 (14:45→15:14)
[2021-05-28] MEDS ORDERED: DEXTROSE 5%-WATER 100 ML IVPB ONE ×3 (14:45→15:14)
[2021-05-28] MEDS: VANCOMYCIN 1 GRAM (PRE-DOCKED) 1,000 MG/250 ML BAG IVPB SCH (14:56)
[2021-05-28] MEDS ORDERED: LACTATED RINGERS SOLUTION 1000 ML INFUS.BAG IV ONE (15:01)
[2021-05-28] MEDS: PIPERACILLIN/TAZOB 4.5 GM 4.5 GM in DEXTROSE 5%-WATER 100 ML IVPB SCH ×2 (15:17→17:38)
[2021-05-28] MEDS: AMINO ACIDS/PROTEIN HYDROLYS 30 ML LIQUID.PKT PO SCH (17:37)
[2021-05-28] MEDS ORDERED: VANCOMYCIN 1 GRAM (PRE-DOCKED) 1,000 MG/250 ML BAG IVPB SCH (18:00)
[2021-05-28] MEDS ORDERED: LACTATED RINGERS SOLUTION 1,000 ML/1,000 ML INFUS.BAG IV STA (20:57)
[2021-05-28] MEDS: ATORVASTATIN CA 80 MG TABLET (FP) PO SCH (22:16)
[2021-05-28 23:00] LABS: LACTIC ACID 2.5 mmol/L (0.4-2.0)
[2021-05-29] MEDS ORDERED: PIPERACILLIN/TAZOBACTAM 4.5 GM VIAL IVPB ONE ×3 (01:05→17:29)
[2021-05-29] MEDS ORDERED: DEXTROSE 5%-WATER 100 ML IVPB ONE ×3 (01:05→17:29)
[2021-05-29] MEDS: PIPERACILLIN/TAZOB 4.5 GM 4.5 GM in DEXTROSE 5%-WATER 100 ML IVPB SCH ×3 (01:10→17:38)
[2021-05-29] MEDS: VANCOMYCIN 1 GRAM (PRE-DOCKED) 1,000 MG/250 ML BAG IVPB SCH ×2 (02:41→15:10)
[2021-05-29] MEDS ORDERED: D5-1/2NS+10 MEQ KCL - 10 MEQ/1,000 ML INFUS.BAG IV SCH ×3 (05:56→12:13)
[2021-05-29] MEDS: INSULIN SLIDING SCALE (NOVOLOG) 1 VIAL SQ SCH ×3 (06:38→16:36)
[2021-05-29] MEDS: AMINO ACIDS/PROTEIN HYDROLYS 30 ML LIQUID.PKT PO SCH ×2 (09:14→17:39)
[2021-05-29 09:57] LABS: BASO % 0.3 % (0-2.0); EOS % 1.4 % (0-4.5); HEMATOCRIT 32.4 % (35.4-49); HEMOGLOBIN 10.8 GM/dL (11.7-16.9); LYMPH % 8.3 % (8-40); MCH 28.9 pg (25.7-33.7); MCHC 33.4 g/dl (32.0-35.9); MEAN CELL VOLUME 86.6 fl (80-96); MEAN PLT VOLUME 7.5 fl (7.5-11.1); MONO % 5.3 % (3.8-10.2); NEUT % 84.7 % (42.8-82.8); PLATELET COUNT 230 10^3/uL (134-434); RBC 3.75 M/mm3 (4.00-5.60); RDW 14.3 % (11.9-15.9); WHITE BLOOD COUNT 15.3 K/mm3 (4.0-10.0)
[2021-05-29] MEDS: PANTOPRAZOLE 40 MG TABLET PO SCH (10:18)
[2021-05-29] MEDS: ENOXAPARIN NA (PORCINE) 40 MG/0.4 ML DISP.SYRIN SQ SCH (10:19)
[2021-05-29] MEDS: amLODIPine BESYLATE 2.5 MG TABLET (FP) PO SCH (10:19)
[2021-05-29 10:27] LABS: BLOOD UREA NITROGEN 10.8 mg/dL (7-18); CALCIUM 8.2 mg/dL (8.5-10.1)
[2021-05-29 10:28] LABS: LACTIC ACID 2.3 mmol/L (0.4-2.0)
[2021-05-29 10:31] LABS: CREATININE 0.9 mg/dL (0.55-1.3)
[2021-05-29] MEDS ORDERED: INSULIN (NOVOLOG) ASPART 100 UNITS/ML 10ML VIAL ONE (11:14)
[2021-05-29] MEDS: KCL 10 MEQ IVPB 10 MEQ/100 ML INFUS.BAG IVPB SCH ×3 (12:43→15:53)
[2021-05-29] MEDS: CHOLECALCIFEROL (VIT D3) 5000 UNITS (125 MCG) CAP PO SCH (16:55)
[2021-05-29] MEDS: COLLAGENASE CLOSTRIDIUM HIST. 30 GRAMS TUBE TP SCH (16:55)
[2021-05-29] MEDS: VITAMIN A 10,000 UNITS (3000 MCG) CAPSULE PO SCH (16:55)
[2021-05-29] MEDS: ZINC SULFATE 220 MG CAPSULE (FP) PO SCH (17:39)
[2021-05-29] MEDS: ASCORBIC ACID 500 MG TABLET (FP) PO SCH (22:34)
[2021-05-29] MEDS: ATORVASTATIN CA 80 MG TABLET (FP) PO SCH (22:34)
[2021-05-30] MEDS ORDERED: PIPERACILLIN/TAZOBACTAM 4.5 GM VIAL IVPB ONE ×3 (01:59→17:00)
[2021-05-30] MEDS ORDERED: DEXTROSE 5%-WATER 100 ML IVPB ONE ×3 (01:59→17:00)
[2021-05-30] MEDS: PIPERACILLIN/TAZOB 4.5 GM 4.5 GM in DEXTROSE 5%-WATER 100 ML IVPB SCH ×3 (02:07→17:24)
[2021-05-30] MEDS: D5-1/2NS+10 MEQ KCL - 10 MEQ/1,000 ML INFUS.BAG IV SCH ×3 (04:30→20:51)
[2021-05-30] MEDS: INSULIN SLIDING SCALE (NOVOLOG) 1 VIAL SQ SCH ×3 (06:37→16:32)
[2021-05-30] MEDS ORDERED: INSULIN (NOVOLOG) ASPART 100 UNITS/ML 10ML VIAL ONE (06:46)
[2021-05-30] MEDS: AMINO ACIDS/PROTEIN HYDROLYS 30 ML LIQUID.PKT PO SCH ×2 (10:07→16:31)
[2021-05-30] MEDS: VITAMIN A 10,000 UNITS (3000 MCG) CAPSULE PO SCH (10:08)
[2021-05-30] MEDS: PANTOPRAZOLE 40 MG TABLET PO SCH (10:08)
[2021-05-30] MEDS: ENOXAPARIN NA (PORCINE) 40 MG/0.4 ML DISP.SYRIN SQ SCH (10:08)
[2021-05-30] MEDS: CHOLECALCIFEROL (VIT D3) 5000 UNITS (125 MCG) CAP PO SCH (10:08)
[2021-05-30] MEDS: ASCORBIC ACID 500 MG TABLET (FP) PO SCH ×2 (10:08→21:06)
[2021-05-30] MEDS: ZINC SULFATE 220 MG CAPSULE (FP) PO SCH (10:08)
[2021-05-30 12:14] LABS: BASO % 0.6 % (0-2.0); EOS % 2.2 % (0-4.5); HEMATOCRIT 32.1 % (35.4-49); HEMOGLOBIN 10.6 GM/dL (11.7-16.9); LYMPH % 12.2 % (8-40); MCH 28.7 pg (25.7-33.7); MCHC 32.9 g/dl (32.0-35.9); MEAN CELL VOLUME 87.4 fl (80-96); MEAN PLT VOLUME 7.4 fl (7.5-11.1); MONO % 4.9 % (3.8-10.2); NEUT % 80.1 % (42.8-82.8); PLATELET COUNT 261 10^3/uL (134-434); RBC 3.68 M/mm3 (4.00-5.60); RDW 13.9 % (11.9-15.9); WHITE BLOOD COUNT 9.1 K/mm3 (4.0-10.0)
[2021-05-30 12:23] LABS: CALCIUM 7.9 mg/dL (8.5-10.1)
[2021-05-30 12:24] LABS: BLOOD UREA NITROGEN 10.1 mg/dL (7-18)
[2021-05-30 12:27] LABS: CREATININE 0.8 mg/dL (0.55-1.3)
[2021-05-30] MEDS: VANCOMYCIN 1 GRAM (PRE-DOCKED) 1,000 MG/250 ML BAG IVPB SCH (15:11)
[2021-05-30] MEDS: COLLAGENASE CLOSTRIDIUM HIST. 30 GRAMS TUBE TP SCH (15:12)
[2021-05-30] MEDS: ATORVASTATIN CA 80 MG TABLET (FP) PO SCH (21:06)
[2021-05-30 23:59] VITALS: BMI 21.4
[2021-05-31] MEDS ORDERED: PIPERACILLIN/TAZOBACTAM 4.5 GM VIAL IVPB ONE ×3 (01:12→16:57)
[2021-05-31] MEDS ORDERED: DEXTROSE 5%-WATER 100 ML IVPB ONE ×3 (01:12→16:57)
[2021-05-31] MEDS: PIPERACILLIN/TAZOB 4.5 GM 4.5 GM in DEXTROSE 5%-WATER 100 ML IVPB SCH ×3 (01:16→18:48)
[2021-05-31] MEDS: INSULIN SLIDING SCALE (NOVOLOG) 1 VIAL SQ SCH ×3 (06:07→17:15)
[2021-05-31] MEDS: D5-1/2NS+10 MEQ KCL - 10 MEQ/1,000 ML INFUS.BAG IV SCH ×2 (06:08→19:55)
[2021-05-31] MEDS: AMINO ACIDS/PROTEIN HYDROLYS 30 ML LIQUID.PKT PO SCH ×2 (08:45→17:15)
[2021-05-31] MEDS: ENOXAPARIN NA (PORCINE) 40 MG/0.4 ML DISP.SYRIN SQ SCH (11:00)
[2021-05-31] MEDS: VITAMIN A 10,000 UNITS (3000 MCG) CAPSULE PO SCH (11:00)
[2021-05-31] MEDS: ZINC SULFATE 220 MG CAPSULE (FP) PO SCH (11:00)
[2021-05-31] MEDS: COLLAGENASE CLOSTRIDIUM HIST. 30 GRAMS TUBE TP SCH (11:01)
[2021-05-31] MEDS: CHOLECALCIFEROL (VIT D3) 5000 UNITS (125 MCG) CAP PO SCH (11:01)
[2021-05-31] MEDS: ASCORBIC ACID 500 MG TABLET (FP) PO SCH ×2 (11:01→21:02)
[2021-05-31] MEDS: PANTOPRAZOLE 40 MG TABLET PO SCH (11:01)
[2021-05-31] MEDS: VANCOMYCIN 1 GRAM (PRE-DOCKED) 1,000 MG/250 ML BAG IVPB SCH (14:57)
[2021-05-31] MEDS ORDERED: INSULIN (NOVOLOG) ASPART 100 UNITS/ML 10ML VIAL ONE (20:32)
[2021-05-31] MEDS: ATORVASTATIN CA 80 MG TABLET (FP) PO SCH (21:02)
[2021-06-01] MEDS ORDERED: PIPERACILLIN/TAZOBACTAM 4.5 GM VIAL IVPB ONE ×3 (00:44→16:38)
[2021-06-01] MEDS ORDERED: DEXTROSE 5%-WATER 100 ML IVPB ONE ×3 (00:45→16:38)
[2021-06-01] MEDS: PIPERACILLIN/TAZOB 4.5 GM 4.5 GM in DEXTROSE 5%-WATER 100 ML IVPB SCH ×3 (01:41→17:30)
[2021-06-01] MEDS: D5-1/2NS+10 MEQ KCL - 10 MEQ/1,000 ML INFUS.BAG IV SCH ×4 (03:10→23:37)
[2021-06-01] MEDS ORDERED: INSULIN (NOVOLOG) ASPART 100 UNITS/ML 10ML VIAL ONE (05:53)
[2021-06-01] MEDS: INSULIN SLIDING SCALE (NOVOLOG) 1 VIAL SQ SCH ×3 (06:11→17:27)
[2021-06-01] MEDS: AMINO ACIDS/PROTEIN HYDROLYS 30 ML LIQUID.PKT PO SCH ×2 (08:56→17:31)
[2021-06-01] MEDS: VITAMIN A 10,000 UNITS (3000 MCG) CAPSULE PO SCH (10:57)
[2021-06-01] MEDS: ZINC SULFATE 220 MG CAPSULE (FP) PO SCH (10:57)
[2021-06-01] MEDS: ASCORBIC ACID 500 MG TABLET (FP) PO SCH ×2 (10:57→23:10)
[2021-06-01] MEDS: PANTOPRAZOLE 40 MG TABLET PO SCH (10:58)
[2021-06-01] MEDS: COLLAGENASE CLOSTRIDIUM HIST. 30 GRAMS TUBE TP SCH (10:58)
[2021-06-01] MEDS: CHOLECALCIFEROL (VIT D3) 5000 UNITS (125 MCG) CAP PO SCH (10:58)
[2021-06-01] MEDS: ENOXAPARIN NA (PORCINE) 40 MG/0.4 ML DISP.SYRIN SQ SCH (10:58)
[2021-06-01 11:40] LABS: BASO % 0.7 % (0-2.0); EOS % 3.7 % (0-4.5); HEMATOCRIT 32.1 % (35.4-49); HEMOGLOBIN 10.9 GM/dL (11.7-16.9); LYMPH % 19.2 % (8-40); MCHC 33.9 g/dl (32.0-35.9); MEAN CELL VOLUME 85.3 fl (80-96); MEAN PLT VOLUME 7.4 fl (7.5-11.1); MONO % 6.9 % (3.8-10.2); NEUT % 69.5 % (42.8-82.8); PLATELET COUNT 251 10^3/uL (134-434); RBC 3.76 M/mm3 (4.00-5.60); RDW 14.4 % (11.9-15.9); WHITE BLOOD COUNT 6.7 K/mm3 (4.0-10.0)
[2021-06-01 12:08] LABS: CALCIUM 8.4 mg/dL (8.5-10.1)
[2021-06-01 12:09] LABS: BLOOD UREA NITROGEN 8.4 mg/dL (7-18)
[2021-06-01 12:12] LABS: CREATININE 0.7 mg/dL (0.55-1.3)
[2021-06-01] MEDS: VANCOMYCIN 1 GRAM (PRE-DOCKED) 1,000 MG/250 ML BAG IVPB SCH (15:48)
[2021-06-01] MEDS: KCL 10 MEQ IVPB 10 MEQ/100 ML INFUS.BAG IVPB SCH ×3 (17:30→23:11)
[2021-06-01] MEDS: ATORVASTATIN CA 80 MG TABLET (FP) PO SCH (23:10)
[2021-06-02] MEDS ORDERED: PIPERACILLIN/TAZOBACTAM 4.5 GM VIAL IVPB ONE ×3 (02:29→17:04)
[2021-06-02] MEDS ORDERED: DEXTROSE 5%-WATER 100 ML IVPB ONE ×3 (02:29→17:05)
[2021-06-02] MEDS: PIPERACILLIN/TAZOB 4.5 GM 4.5 GM in DEXTROSE 5%-WATER 100 ML IVPB SCH ×3 (02:34→18:44)
[2021-06-02] MEDS: INSULIN SLIDING SCALE (NOVOLOG) 1 VIAL SQ SCH ×3 (06:15→16:19)
[2021-06-02] MEDS: AMINO ACIDS/PROTEIN HYDROLYS 30 ML LIQUID.PKT PO SCH ×2 (08:52→17:07)
[2021-06-02] MEDS: ZINC SULFATE 220 MG CAPSULE (FP) PO SCH (10:47)
[2021-06-02] MEDS: PANTOPRAZOLE 40 MG TABLET PO SCH (10:47)
[2021-06-02] MEDS: ASCORBIC ACID 500 MG TABLET (FP) PO SCH ×2 (10:47→21:53)
[2021-06-02] MEDS: COLLAGENASE CLOSTRIDIUM HIST. 30 GRAMS TUBE TP SCH (10:47)
[2021-06-02] MEDS: VITAMIN A 10,000 UNITS (3000 MCG) CAPSULE PO SCH (10:48)
[2021-06-02] MEDS: CHOLECALCIFEROL (VIT D3) 5000 UNITS (125 MCG) CAP PO SCH (10:48)
[2021-06-02] MEDS: ENOXAPARIN NA (PORCINE) 40 MG/0.4 ML DISP.SYRIN SQ SCH (10:48)
[2021-06-02 13:02] LABS: BASO % 0.8 % (0-2.0); EOS % 3.3 % (0-4.5); HEMATOCRIT 33.4 % (35.4-49); HEMOGLOBIN 11.1 GM/dL (11.7-16.9); MCH 28.9 pg (25.7-33.7); MCHC 33.4 g/dl (32.0-35.9); MEAN CELL VOLUME 86.5 fl (80-96); MEAN PLT VOLUME 7.5 fl (7.5-11.1); NEUT % 66.9 % (42.8-82.8); PLATELET COUNT 247 10^3/uL (134-434); RBC 3.86 M/mm3 (4.00-5.60); RDW 14.5 % (11.9-15.9); WHITE BLOOD COUNT 6.5 K/mm3 (4.0-10.0)
[2021-06-02 13:27] LABS: CALCIUM 8.4 mg/dL (8.5-10.1)
[2021-06-02 13:28] LABS: BLOOD UREA NITROGEN 7.5 mg/dL (7-18)
[2021-06-02 13:31] LABS: CREATININE 0.7 mg/dL (0.55-1.3)
[2021-06-02] MEDS: VANCOMYCIN 1 GRAM (PRE-DOCKED) 1,000 MG/250 ML BAG IVPB SCH (15:57)
[2021-06-02] MEDS ORDERED: POTASSIUM CHLORIDE 10 MEQ in DEXTROSE 5%-NORMAL SALINE 1,000 ML IVPB SCH (16:00)
[2021-06-02] MEDS ORDERED: D5-NS + 20 MEQ KCL - 20 MEQ/1,000 ML INFUS.BAG IV SCH ×2 (16:00)
[2021-06-02] MEDS: ATORVASTATIN CA 80 MG TABLET (FP) PO SCH (21:53)
[2021-06-02] MEDS ORDERED: TAMSULOSIN HCL 0.4 MG CAP PO ONE (23:08)
[2021-06-03] MEDS ORDERED: DEXTROSE 5%-WATER 100 ML IVPB ONE ×3 (00:02→17:34)
[2021-06-03] MEDS ORDERED: PIPERACILLIN/TAZOBACTAM 4.5 GM VIAL IVPB ONE ×3 (00:02→17:34)
[2021-06-03] MEDS: PIPERACILLIN/TAZOB 4.5 GM 4.5 GM in DEXTROSE 5%-WATER 100 ML IVPB SCH ×3 (01:05→18:50)
[2021-06-03] MEDS: INSULIN SLIDING SCALE (NOVOLOG) 1 VIAL SQ SCH ×3 (06:27→17:21)
[2021-06-03] MEDS: AMINO ACIDS/PROTEIN HYDROLYS 30 ML LIQUID.PKT PO SCH ×2 (08:32→17:22)
[2021-06-03] MEDS: D5-NS + 20 MEQ KCL - 20 MEQ/1,000 ML INFUS.BAG IV SCH ×2 (08:33→13:54)
[2021-06-03] MEDS: ENOXAPARIN NA (PORCINE) 40 MG/0.4 ML DISP.SYRIN SQ SCH (10:27)
[2021-06-03] MEDS: ZINC SULFATE 220 MG CAPSULE (FP) PO SCH (10:28)
[2021-06-03] MEDS: VITAMIN A 10,000 UNITS (3000 MCG) CAPSULE PO SCH (10:28)
[2021-06-03] MEDS: COLLAGENASE CLOSTRIDIUM HIST. 30 GRAMS TUBE TP SCH (10:28)
[2021-06-03] MEDS: ASCORBIC ACID 500 MG TABLET (FP) PO SCH ×2 (10:28→21:34)
[2021-06-03] MEDS: PANTOPRAZOLE 40 MG TABLET PO SCH (10:28)
[2021-06-03] MEDS: CHOLECALCIFEROL (VIT D3) 5000 UNITS (125 MCG) CAP PO SCH (10:29)
[2021-06-03] MEDS: VANCOMYCIN 1 GRAM (PRE-DOCKED) 1,000 MG/250 ML BAG IVPB SCH (15:27)
[2021-06-03] MEDS: ATORVASTATIN CA 80 MG TABLET (FP) PO SCH (21:34)
[2021-06-04] MEDS ORDERED: DEXTROSE 5%-WATER 100 ML IVPB ONE ×2 (00:56→10:56)
[2021-06-04] MEDS ORDERED: PIPERACILLIN/TAZOBACTAM 4.5 GM VIAL IVPB ONE ×2 (00:56→10:55)
[2021-06-04] MEDS: PIPERACILLIN/TAZOB 4.5 GM 4.5 GM in DEXTROSE 5%-WATER 100 ML IVPB SCH ×2 (01:00→11:07)
[2021-06-04] MEDS: INSULIN SLIDING SCALE (NOVOLOG) 1 VIAL SQ SCH ×3 (06:45→16:35)
[2021-06-04] MEDS: AMINO ACIDS/PROTEIN HYDROLYS 30 ML LIQUID.PKT PO SCH ×2 (08:58→18:24)
[2021-06-04 09:59] LABS: BASO % 0.7 % (0-2.0); EOS % 4.1 % (0-4.5); HEMATOCRIT 32.2 % (35.4-49); HEMOGLOBIN 10.9 GM/dL (11.7-16.9); MCH 29.4 pg (25.7-33.7); MCHC 33.8 g/dl (32.0-35.9); MEAN CELL VOLUME 87.2 fl (80-96); MEAN PLT VOLUME 7.3 fl (7.5-11.1); MONO % 9.7 % (3.8-10.2); NEUT % 59.5 % (42.8-82.8); PLATELET COUNT 186 10^3/uL (134-434); RBC 3.69 M/mm3 (4.00-5.60); RDW 14.6 % (11.9-15.9); WHITE BLOOD COUNT 5.9 K/mm3 (4.0-10.0)
[2021-06-04] MEDS: MULTIVITAMINS (DAILY MVI) TABLET (FP) PO SCH (11:05)
[2021-06-04] MEDS: ZINC SULFATE 220 MG CAPSULE (FP) PO SCH (11:05)
[2021-06-04] MEDS: COLLAGENASE CLOSTRIDIUM HIST. 30 GRAMS TUBE TP SCH (11:05)
[2021-06-04] MEDS: ASCORBIC ACID 500 MG TABLET (FP) PO SCH ×2 (11:05→21:38)
[2021-06-04] MEDS: PANTOPRAZOLE 40 MG TABLET PO SCH (11:05)
[2021-06-04] MEDS: VITAMIN A 10,000 UNITS (3000 MCG) CAPSULE PO SCH (11:06)
[2021-06-04] MEDS: ENOXAPARIN NA (PORCINE) 40 MG/0.4 ML DISP.SYRIN SQ SCH (11:06)
[2021-06-04] MEDS: D5-NS + 20 MEQ KCL - 20 MEQ/1,000 ML INFUS.BAG IV SCH (11:06)
[2021-06-04] MEDS: CHOLECALCIFEROL (VIT D3) 5000 UNITS (125 MCG) CAP PO SCH (11:06)
[2021-06-04 13:42] LABS: BILIRUBIN,TOTAL 0.5 mg/dL (0.2-1); CREATININE 0.6 mg/dL (0.55-1.3); TOT PROT 5.5 g/dl (6.4-8.2)
[2021-06-04] MEDS ORDERED: CEFEPIME 1 GM in DEXTROSE 5%-WATER 1 GM/100 ML BAG IVPB SCH (16:00)
[2021-06-04] MEDS: VANCOMYCIN 1 GRAM (PRE-DOCKED) 1,000 MG/250 ML BAG IVPB SCH (16:23)
[2021-06-04] MEDS: CEFEPIME 1 GM in DEXTROSE 5%-WATER 1 GM/100 ML BAG IVPB SCH (18:24)
[2021-06-04] MEDS: ATORVASTATIN CA 80 MG TABLET (FP) PO SCH (21:38)
[2021-06-05] MEDS ORDERED: DEXTROSE 5%-WATER 100 ML IVPB ONE ×2 (04:56→17:22)
[2021-06-05] MEDS ORDERED: CEFEPIME HCL 1 GM VIAL (RESTRICTED TO ID) ONE ×2 (04:56→17:22)
[2021-06-05] MEDS: CEFEPIME 1 GM in DEXTROSE 5%-WATER 1 GM/100 ML BAG IVPB SCH ×2 (05:55→17:41)
[2021-06-05] MEDS: D5-NS + 20 MEQ KCL - 20 MEQ/1,000 ML INFUS.BAG IV SCH ×2 (06:00→09:51)
[2021-06-05] MEDS: INSULIN SLIDING SCALE (NOVOLOG) 1 VIAL SQ SCH ×3 (06:41→17:24)
[2021-06-05] MEDS: AMINO ACIDS/PROTEIN HYDROLYS 30 ML LIQUID.PKT PO SCH ×2 (09:51→17:41)
[2021-06-05] MEDS: VITAMIN A 10,000 UNITS (3000 MCG) CAPSULE PO SCH (09:52)
[2021-06-05] MEDS: CHOLECALCIFEROL (VIT D3) 5000 UNITS (125 MCG) CAP PO SCH (09:52)
[2021-06-05] MEDS: ASCORBIC ACID 500 MG TABLET (FP) PO SCH ×2 (09:52→21:27)
[2021-06-05] MEDS: ENOXAPARIN NA (PORCINE) 40 MG/0.4 ML DISP.SYRIN SQ SCH (09:52)
[2021-06-05] MEDS: MULTIVITAMINS (DAILY MVI) TABLET (FP) PO SCH (09:53)
[2021-06-05] MEDS: ZINC SULFATE 220 MG CAPSULE (FP) PO SCH (09:53)
[2021-06-05] MEDS: COLLAGENASE CLOSTRIDIUM HIST. 30 GRAMS TUBE TP SCH (09:53)
[2021-06-05] MEDS: PANTOPRAZOLE 40 MG TABLET PO SCH (09:53)
[2021-06-05 10:49] LABS: BASO % 0.8 % (0-2.0); EOS % 5.3 % (0-4.5); HEMOGLOBIN 10.9 GM/dL (11.7-16.9); LYMPH % 40.2 % (8-40); MCH 28.7 pg (25.7-33.7); MCHC 33.2 g/dl (32.0-35.9); MEAN CELL VOLUME 86.5 fl (80-96); MEAN PLT VOLUME 7.7 fl (7.5-11.1); MONO % 9.9 % (3.8-10.2); NEUT % 43.8 % (42.8-82.8); PLATELET COUNT 186 10^3/uL (134-434); RBC 3.81 M/mm3 (4.00-5.60); RDW 14.6 % (11.9-15.9); WHITE BLOOD COUNT 4.7 K/mm3 (4.0-10.0)
[2021-06-05 11:11] LABS: BLOOD UREA NITROGEN 5.2 mg/dL (7-18)
[2021-06-05 11:14] LABS: CREATININE 0.7 mg/dL (0.55-1.3)
[2021-06-05] MEDS: VANCOMYCIN 1 GRAM (PRE-DOCKED) 1,000 MG/250 ML BAG IVPB SCH (14:05)
[2021-06-05] MEDS: ATORVASTATIN CA 80 MG TABLET (FP) PO SCH (21:27)
[2021-06-06] MEDS ORDERED: DEXTROSE 5%-WATER 100 ML IVPB ONE (02:51)
[2021-06-06] MEDS ORDERED: CEFEPIME HCL 1 GM VIAL (RESTRICTED TO ID) ONE (02:51)
[2021-06-06] MEDS: D5-NS + 20 MEQ KCL - 20 MEQ/1,000 ML INFUS.BAG IV SCH ×2 (04:00→08:54)
[2021-06-06] MEDS: CEFEPIME 1 GM in DEXTROSE 5%-WATER 1 GM/100 ML BAG IVPB SCH ×2 (05:39→16:45)
[2021-06-06] MEDS: INSULIN SLIDING SCALE (NOVOLOG) 1 VIAL SQ SCH ×3 (06:00→16:46)
[2021-06-06] MEDS: AMINO ACIDS/PROTEIN HYDROLYS 30 ML LIQUID.PKT PO SCH ×2 (08:54→16:46)
[2021-06-06] MEDS: PANTOPRAZOLE 40 MG TABLET PO SCH (09:12)
[2021-06-06] MEDS: ASCORBIC ACID 500 MG TABLET (FP) PO SCH (09:12)
[2021-06-06] MEDS: MULTIVITAMINS (DAILY MVI) TABLET (FP) PO SCH (09:12)
[2021-06-06] MEDS: VITAMIN A 10,000 UNITS (3000 MCG) CAPSULE PO SCH (09:12)
[2021-06-06] MEDS: ENOXAPARIN NA (PORCINE) 40 MG/0.4 ML DISP.SYRIN SQ SCH (09:12)
[2021-06-06] MEDS: ZINC SULFATE 220 MG CAPSULE (FP) PO SCH (09:12)
[2021-06-06] MEDS: CHOLECALCIFEROL (VIT D3) 5000 UNITS (125 MCG) CAP PO SCH (09:13)
[2021-06-06 10:06] LABS: BASO % 0.4 % (0-2.0); EOS % 4.3 % (0-4.5); HEMATOCRIT 31.7 % (35.4-49); HEMOGLOBIN 10.6 GM/dL (11.7-16.9); LYMPH % 37.5 % (8-40); MCH 28.9 pg (25.7-33.7); MCHC 33.3 g/dl (32.0-35.9); MEAN CELL VOLUME 86.8 fl (80-96); MEAN PLT VOLUME 7.6 fl (7.5-11.1); MONO % 8.9 % (3.8-10.2); NEUT % 48.9 % (42.8-82.8); PLATELET COUNT 177 10^3/uL (134-434); RBC 3.66 M/mm3 (4.00-5.60); RDW 15.2 % (11.9-15.9); WHITE BLOOD COUNT 4.9 K/mm3 (4.0-10.0)
[2021-06-06 10:28] LABS: CALCIUM 8.2 mg/dL (8.5-10.1)
[2021-06-06 10:29] LABS: BLOOD UREA NITROGEN 8.3 mg/dL (7-18)
[2021-06-06 10:32] LABS: CREATININE 0.8 mg/dL (0.55-1.3)
[2021-06-06] MEDS: COLLAGENASE CLOSTRIDIUM HIST. 30 GRAMS TUBE TP SCH (10:56)
[2021-06-06 12:08] LABS: SARS-CoV-2 NAA Not Detected (Not Detected)
[2021-06-06 13:49] VITALS: BP 128/57; PULSE 73; TEMP 97.8
[2021-06-06] MEDS ORDERED: VANCOMYCIN/WATER FOR INJ (PEG) 750 MG/150 ML BAG IVPB SCH (15:00)
== END 2021-06-06 18:22 | DRG 871 ==
LOC: JER 14:46 → JERBED 19:59 → J6S 05-28 02:53
PROVIDERS: ADMIT Internal Medicine; ATTEND Internal Medicine
PROC: 02HV33Z Insertion of Infusion Device into Superior Vena Cava, Percutaneous Approach (ICD-10-PCS; principal; 2021-06-05)
PROC: B548ZZA Ultrasonography of Superior Vena Cava, Guidance (ICD-10-PCS; 2021-06-05)
DX: A41.89 Other specified sepsis (principal); L89.313 Pressure ulcer of right buttock, stage 3; G92.8 Other toxic encephalopathy; R53.2 Functional quadriplegia; U07.1 COVID-19; I69.354 Hemiplegia and hemiparesis following cerebral infarction affecting left non-dominant side; E87.1 Hypo-osmolality and hyponatremia; E87.2 Acidosis; I50.32 Chronic diastolic (congestive) heart failure; M86.171 Other acute osteomyelitis, right ankle and foot; E11.52 Type 2 diabetes mellitus with diabetic peripheral angiopathy with gangrene; I96 Gangrene, not elsewhere classified; J44.9 Chronic obstructive pulmonary disease, unspecified; I25.10 Atherosclerotic heart disease of native coronary artery without angina pectoris; Z95.1 Presence of aortocoronary bypass graft; I11.0 Hypertensive heart disease with heart failure; E11.51 Type 2 diabetes mellitus with diabetic peripheral angiopathy without gangrene; Z79.84 Long term (current) use of oral hypoglycemic drugs; E86.0 Dehydration; R19.7 Diarrhea, unspecified; R74.01 Elevation of levels of liver transaminase levels; F03.90 Unspecified dementia, unspecified severity, without behavioral disturbance, psychotic disturbance, mood disturbance, and anxiety; E11.69 Type 2 diabetes mellitus with other specified complication; R94.31 Abnormal electrocardiogram [ECG] [EKG]; N40.0 Benign prostatic hyperplasia without lower urinary tract symptoms; N31.9 Neuromuscular dysfunction of bladder, unspecified
CPT/HCPCS: 36415; 36569; 70450-TC; 71045-TC-FY; 73630-TC-RT-FY; 73718-TC-RT; 74176-TC; 77001-TC-FY; 80048; 80053; 81003; 82272; 82550; 82607; 82728; 82962; 83036; 83540; 83550; 83605; 84484; 85025; 85379; 85610; 85730; 86140; 86850; 86900; 86901; 87040; 87086; 87804; 93005; 93010; 97161-GP; 99285-25; C1751; C9803; G0480; U0003; U0005

== ENCOUNTER 2021-07-30 14:52 | Inpatient (IN) | payer BC, OTHER ==
[2021-07-30 16:52] LABS: BASO % 1.2 % (0-2.0); EOS % 4.7 % (0-4.5); HEMATOCRIT 34.2 % (35.4-49); HEMOGLOBIN 11.5 GM/dL (11.7-16.9); LYMPH % 24.6 % (8-40); MCH 30.2 pg (25.7-33.7); MCHC 33.6 g/dl (32.0-35.9); MEAN CELL VOLUME 89.7 fl (80-96); MEAN PLT VOLUME 7.4 fl (7.5-11.1); MONO % 6.1 % (3.8-10.2); NEUT % 63.4 % (42.8-82.8); PLATELET COUNT 299 10^3/uL (134-434); RBC 3.82 M/mm3 (4.00-5.60); RDW 16.6 % (11.9-15.9); WHITE BLOOD COUNT 5.8 K/mm3 (4.0-10.0)
[2021-07-30 16:59] LABS: INR 1.05 (0.83-1.09); PROTHROMBIN TIME (PATIENT) 12.1 SEC (9.7-13.0)
[2021-07-30 17:02] LABS: ACTIVATED PTT 41.5 SECONDS (25.2-36.5)
[2021-07-30 17:12] LABS: CALCIUM 8.5 mg/dL (8.5-10.1)
[2021-07-30 17:13] LABS: ALBUMIN 2.1 g/dl (3.4-5.0); BLOOD UREA NITROGEN 17.8 mg/dL (7-18)
[2021-07-30 17:16] LABS: CREATININE 0.8 mg/dL (0.55-1.3)
[2021-07-30 17:17] LABS: BILIRUBIN,TOTAL 0.3 mg/dL (0.2-1); TOT PROT 6.3 g/dl (6.4-8.2)
[2021-07-30 17:32] LABS: ERYTHROCYTE SEDIMENTATION RATE 60 mm/hr (0-20)
[2021-07-31] MEDS: PANTOPRAZOLE 40 MG TABLET PO SCH ×2 (03:56→10:03)
[2021-07-31] MEDS: HEPARIN NA (PORCINE) 5,000 UNITS/ML 1ML VIAL SQ SCH ×4 (03:56→22:06)
[2021-07-31] MEDS: ASCORBIC ACID 500 MG TABLET (FP) PO SCH ×3 (03:56→22:06)
[2021-07-31] MEDS: INSULIN SLIDING SCALE (NOVOLOG) 1 VIAL SQ SCH ×4 (03:57→17:13)
[2021-07-31] MEDS: SODIUM CHLORIDE 1 GM TABLET PO SCH ×4 (03:58→22:06)
[2021-07-31] MEDS: amLODIPine BESYLATE 2.5 MG TABLET (FP) PO SCH (10:03)
[2021-07-31] MEDS: ASPIRIN COATED 81 MG TABLET.EC PO SCH (10:03)
[2021-07-31] MEDS: POLYETHYLENE GLYCOL (HEALTHYLAX) 3350 17 GM PACKET PO SCH (10:05)
[2021-07-31 12:19] LABS: BASO % 0.8 % (0-2.0); EOS % 4.4 % (0-4.5); HEMATOCRIT 35.9 % (35.4-49); MCH 29.9 pg (25.7-33.7); MCHC 33.3 g/dl (32.0-35.9); MEAN CELL VOLUME 89.8 fl (80-96); MEAN PLT VOLUME 7.7 fl (7.5-11.1); MONO % 6.8 % (3.8-10.2); PLATELET COUNT 307 10^3/uL (134-434); RDW 16.5 % (11.9-15.9); WHITE BLOOD COUNT 6.5 K/mm3 (4.0-10.0)
[2021-07-31 12:48] LABS: BLOOD UREA NITROGEN 14.5 mg/dL (7-18); CALCIUM 8.4 mg/dL (8.5-10.1)
[2021-07-31 12:49] LABS: ALBUMIN 2.2 g/dl (3.4-5.0)
[2021-07-31 12:51] LABS: CREATININE 0.7 mg/dL (0.55-1.3)
[2021-07-31 12:53] LABS: BILIRUBIN,TOTAL 0.4 mg/dL (0.2-1); TOT PROT 6.6 g/dl (6.4-8.2)
[2021-07-31] MEDS: VITAMIN A 10,000 UNITS (3000 MCG) CAPSULE PO SCH (13:49)
[2021-07-31] MEDS: MULTIVITAMINS THER W-MINERALS COMBO TABLET (FP) PO SCH (13:50)
[2021-07-31] MEDS: CHOLECALCIFEROL (VIT D3) 5000 UNITS (125 MCG) CAP PO SCH (13:50)
[2021-07-31] MEDS ORDERED: ATORVASTATIN CA 40 MG TABLET (FP) ONE (22:04)
[2021-07-31] MEDS: DOCUSATE SODIUM 100 MG CAPSULE (FP) PO SCH (22:06)
[2021-07-31] MEDS: ATORVASTATIN CA 80 MG TABLET (FP) PO SCH (22:06)
[2021-08-01] MEDS: INSULIN SLIDING SCALE (NOVOLOG) 1 VIAL SQ SCH ×3 (06:23→18:12)
[2021-08-01] MEDS: HEPARIN NA (PORCINE) 5,000 UNITS/ML 1ML VIAL SQ SCH ×3 (06:23→21:56)
[2021-08-01] MEDS: SODIUM CHLORIDE 1 GM TABLET PO SCH ×3 (06:23→21:59)
[2021-08-01 07:34] LABS: EOS % 3.3 % (0-4.5); HEMATOCRIT 33.8 % (35.4-49); HEMOGLOBIN 11.3 GM/dL (11.7-16.9); LYMPH % 28.3 % (8-40); MCH 30.2 pg (25.7-33.7); MCHC 33.4 g/dl (32.0-35.9); MEAN CELL VOLUME 90.3 fl (80-96); MEAN PLT VOLUME 8.3 fl (7.5-11.1); MONO % 7.6 % (3.8-10.2); NEUT % 59.8 % (42.8-82.8); PLATELET COUNT 283 10^3/uL (134-434); RBC 3.74 M/mm3 (4.00-5.60); RDW 16.6 % (11.9-15.9); WHITE BLOOD COUNT 6.5 K/mm3 (4.0-10.0)
[2021-08-01 07:50] LABS: ALBUMIN 2.1 g/dl (3.4-5.0); BLOOD UREA NITROGEN 16.1 mg/dL (7-18); CALCIUM 8.6 mg/dL (8.5-10.1)
[2021-08-01 07:55] LABS: BILIRUBIN,TOTAL 0.4 mg/dL (0.2-1); TOT PROT 6.3 g/dl (6.4-8.2)
[2021-08-01 07:57] LABS: CREATININE 0.8 mg/dL (0.55-1.3)
[2021-08-01] MEDS ORDERED: SODIUM/POTASSIUM/SOD CHL (EYE WASH) 120 ML BOTTLE OU PRN (08:01)
[2021-08-01] MEDS: CHOLECALCIFEROL (VIT D3) 5000 UNITS (125 MCG) CAP PO SCH (10:06)
[2021-08-01] MEDS: POLYETHYLENE GLYCOL (HEALTHYLAX) 3350 17 GM PACKET PO SCH (10:06)
[2021-08-01] MEDS: ASPIRIN COATED 81 MG TABLET.EC PO SCH (10:07)
[2021-08-01] MEDS: ASCORBIC ACID 500 MG TABLET (FP) PO SCH ×2 (10:07→21:55)
[2021-08-01] MEDS: amLODIPine BESYLATE 2.5 MG TABLET (FP) PO SCH (10:08)
[2021-08-01] MEDS: MULTIVITAMINS THER W-MINERALS COMBO TABLET (FP) PO SCH (10:08)
[2021-08-01] MEDS: VITAMIN A 10,000 UNITS (3000 MCG) CAPSULE PO SCH (10:11)
[2021-08-01] MEDS: PANTOPRAZOLE 40 MG TABLET PO SCH (10:11)
[2021-08-01] MEDS: TOBRAMYCIN 0.3% OPHTH OINT 3.5 GM OU SCH ×4 (11:14→21:56)
[2021-08-01] MEDS: AMINO ACIDS/PROTEIN HYDROLYS 30 ML LIQUID.PKT PO SCH (18:11)
[2021-08-01] MEDS ORDERED: ATORVASTATIN CA 40 MG TABLET (FP) ONE (21:51)
[2021-08-01] MEDS: ATORVASTATIN CA 80 MG TABLET (FP) PO SCH (21:55)
[2021-08-01] MEDS: DOCUSATE SODIUM 100 MG CAPSULE (FP) PO SCH (21:55)
[2021-08-02] MEDS: SODIUM CHLORIDE 1 GM TABLET PO SCH ×3 (05:52→21:23)
[2021-08-02] MEDS: HEPARIN NA (PORCINE) 5,000 UNITS/ML 1ML VIAL SQ SCH ×3 (05:52→21:21)
[2021-08-02] MEDS: INSULIN SLIDING SCALE (NOVOLOG) 1 VIAL SQ SCH ×3 (06:05→16:44)
[2021-08-02] MEDS: AMINO ACIDS/PROTEIN HYDROLYS 30 ML LIQUID.PKT PO SCH ×2 (08:27→17:25)
[2021-08-02] MEDS: AMOX TR/POT CLAV 875MG/125MG TABLETS (FP) PO SCH ×2 (09:14→17:25)
[2021-08-02] MEDS: ASCORBIC ACID 500 MG TABLET (FP) PO SCH ×2 (09:14→21:26)
[2021-08-02] MEDS: POLYETHYLENE GLYCOL (HEALTHYLAX) 3350 17 GM PACKET PO SCH (09:14)
[2021-08-02] MEDS: ASPIRIN COATED 81 MG TABLET.EC PO SCH (09:14)
[2021-08-02] MEDS: PANTOPRAZOLE 40 MG TABLET PO SCH (09:14)
[2021-08-02] MEDS: MULTIVITAMINS THER W-MINERALS COMBO TABLET (FP) PO SCH (09:15)
[2021-08-02] MEDS: TOBRAMYCIN 0.3% OPHTH OINT 3.5 GM OU SCH ×4 (09:17→21:25)
[2021-08-02] MEDS: VITAMIN A 10,000 UNITS (3000 MCG) CAPSULE PO SCH (09:17)
[2021-08-02] MEDS: CHOLECALCIFEROL (VIT D3) 5000 UNITS (125 MCG) CAP PO SCH (09:18)
[2021-08-02] MEDS ORDERED: ATORVASTATIN CA 40 MG TABLET (FP) ONE (21:17)
[2021-08-02] MEDS: DOCUSATE SODIUM 100 MG CAPSULE (FP) PO SCH (21:20)
[2021-08-02] MEDS: ATORVASTATIN CA 80 MG TABLET (FP) PO SCH (21:25)
[2021-08-03] MEDS: SODIUM CHLORIDE 1 GM TABLET PO SCH ×3 (05:58→21:42)
[2021-08-03] MEDS: HEPARIN NA (PORCINE) 5,000 UNITS/ML 1ML VIAL SQ SCH ×3 (05:59→21:42)
[2021-08-03] MEDS: INSULIN SLIDING SCALE (NOVOLOG) 1 VIAL SQ SCH ×3 (06:11→16:30)
[2021-08-03] MEDS: AMOX TR/POT CLAV 875MG/125MG TABLETS (FP) PO SCH ×2 (07:55→16:40)
[2021-08-03] MEDS: AMINO ACIDS/PROTEIN HYDROLYS 30 ML LIQUID.PKT PO SCH ×2 (07:56→16:40)
[2021-08-03 08:12] LABS: BASO % 0.9 % (0-2.0); EOS % 5.4 % (0-4.5); HEMATOCRIT 31.5 % (35.4-49); HEMOGLOBIN 10.9 GM/dL (11.7-16.9); LYMPH % 22.4 % (8-40); MCH 30.7 pg (25.7-33.7); MCHC 34.5 g/dl (32.0-35.9); MEAN PLT VOLUME 7.8 fl (7.5-11.1); NEUT % 64.3 % (42.8-82.8); PLATELET COUNT 268 10^3/uL (134-434); RBC 3.54 M/mm3 (4.00-5.60); RDW 16.1 % (11.9-15.9); WHITE BLOOD COUNT 7.3 K/mm3 (4.0-10.0)
[2021-08-03 08:39] LABS: CALCIUM 8.2 mg/dL (8.5-10.1)
[2021-08-03 08:40] LABS: BLOOD UREA NITROGEN 19.2 mg/dL (7-18)
[2021-08-03 08:43] LABS: CREATININE 0.8 mg/dL (0.55-1.3)
[2021-08-03] MEDS: PANTOPRAZOLE 40 MG TABLET PO SCH (09:27)
[2021-08-03] MEDS: POLYETHYLENE GLYCOL (HEALTHYLAX) 3350 17 GM PACKET PO SCH (09:27)
[2021-08-03] MEDS: ASPIRIN COATED 81 MG TABLET.EC PO SCH (09:27)
[2021-08-03] MEDS: MULTIVITAMINS THER W-MINERALS COMBO TABLET (FP) PO SCH (09:27)
[2021-08-03] MEDS: ASCORBIC ACID 500 MG TABLET (FP) PO SCH ×2 (09:27→21:42)
[2021-08-03] MEDS: VITAMIN A 10,000 UNITS (3000 MCG) CAPSULE PO SCH (09:27)
[2021-08-03] MEDS: CHOLECALCIFEROL (VIT D3) 5000 UNITS (125 MCG) CAP PO SCH (09:27)
[2021-08-03] MEDS: TOBRAMYCIN 0.3% OPHTH OINT 3.5 GM OU SCH ×4 (10:38→21:43)
[2021-08-03] MEDS ORDERED: ATORVASTATIN CA 40 MG TABLET (FP) ONE (21:34)
[2021-08-03] MEDS: DOCUSATE SODIUM 100 MG CAPSULE (FP) PO SCH (21:42)
[2021-08-03] MEDS: ATORVASTATIN CA 80 MG TABLET (FP) PO SCH (21:42)
[2021-08-04] MEDS: HEPARIN NA (PORCINE) 5,000 UNITS/ML 1ML VIAL SQ SCH ×3 (05:40→22:08)
[2021-08-04] MEDS: SODIUM CHLORIDE 1 GM TABLET PO SCH ×3 (05:40→22:08)
[2021-08-04] MEDS: INSULIN SLIDING SCALE (NOVOLOG) 1 VIAL SQ SCH ×3 (06:01→16:53)
[2021-08-04 08:10] LABS: BASO % 0.7 % (0-2.0); EOS % 4.9 % (0-4.5); HEMATOCRIT 32.8 % (35.4-49); HEMOGLOBIN 11.4 GM/dL (11.7-16.9); LYMPH % 23.7 % (8-40); MCH 30.8 pg (25.7-33.7); MCHC 34.7 g/dl (32.0-35.9); MEAN CELL VOLUME 88.7 fl (80-96); MONO % 7.3 % (3.8-10.2); NEUT % 63.4 % (42.8-82.8); PLATELET COUNT 286 10^3/uL (134-434); RBC 3.69 M/mm3 (4.00-5.60); RDW 16.2 % (11.9-15.9)
[2021-08-04 08:19] LABS: CALCIUM 8.7 mg/dL (8.5-10.1)
[2021-08-04 08:20] LABS: BLOOD UREA NITROGEN 21.2 mg/dL (7-18)
[2021-08-04 08:25] LABS: CREATININE 0.8 mg/dL (0.55-1.3)
[2021-08-04] MEDS: ASCORBIC ACID 500 MG TABLET (FP) PO SCH ×2 (09:59→22:08)
[2021-08-04] MEDS: POLYETHYLENE GLYCOL (HEALTHYLAX) 3350 17 GM PACKET PO SCH (09:59)
[2021-08-04] MEDS: PANTOPRAZOLE 40 MG TABLET PO SCH (09:59)
[2021-08-04] MEDS: ASPIRIN COATED 81 MG TABLET.EC PO SCH (09:59)
[2021-08-04] MEDS: AMINO ACIDS/PROTEIN HYDROLYS 30 ML LIQUID.PKT PO SCH ×2 (09:59→17:37)
[2021-08-04] MEDS: TOBRAMYCIN 0.3% OPHTH OINT 3.5 GM OU SCH ×4 (10:00→22:10)
[2021-08-04] MEDS: MULTIVITAMINS THER W-MINERALS COMBO TABLET (FP) PO SCH (10:00)
[2021-08-04] MEDS: VITAMIN A 10,000 UNITS (3000 MCG) CAPSULE PO SCH (11:27)
[2021-08-04] MEDS: AMOX TR/POT CLAV 875MG/125MG TABLETS (FP) PO SCH ×2 (11:27→17:37)
[2021-08-04] MEDS: CHOLECALCIFEROL (VIT D3) 5000 UNITS (125 MCG) CAP PO SCH (11:27)
[2021-08-04] MEDS: DOCUSATE SODIUM 100 MG CAPSULE (FP) PO SCH (22:07)
[2021-08-04] MEDS: ATORVASTATIN CA 80 MG TABLET (FP) PO SCH (22:08)
[2021-08-05] MEDS: SODIUM CHLORIDE 1 GM TABLET PO SCH ×3 (05:36→21:51)
[2021-08-05] MEDS: HEPARIN NA (PORCINE) 5,000 UNITS/ML 1ML VIAL SQ SCH ×2 (05:36→14:32)
[2021-08-05] MEDS: INSULIN SLIDING SCALE (NOVOLOG) 1 VIAL SQ SCH ×3 (06:22→19:11)
[2021-08-05 07:19] LABS: EOS % 5.2 % (0-4.5); HEMATOCRIT 34.1 % (35.4-49); HEMOGLOBIN 11.5 GM/dL (11.7-16.9); LYMPH % 26.9 % (8-40); MCH 30.3 pg (25.7-33.7); MCHC 33.6 g/dl (32.0-35.9); MEAN CELL VOLUME 90.2 fl (80-96); MEAN PLT VOLUME 8.2 fl (7.5-11.1); MONO % 7.6 % (3.8-10.2); NEUT % 59.3 % (42.8-82.8); PLATELET COUNT 296 10^3/uL (134-434); RBC 3.79 M/mm3 (4.00-5.60); RDW 16.4 % (11.9-15.9); WHITE BLOOD COUNT 7.4 K/mm3 (4.0-10.0)
[2021-08-05 07:22] LABS: CALCIUM 8.6 mg/dL (8.5-10.1)
[2021-08-05 07:23] LABS: BLOOD UREA NITROGEN 25.3 mg/dL (7-18)
[2021-08-05 07:26] LABS: CREATININE 0.8 mg/dL (0.55-1.3)
[2021-08-05] MEDS: AMINO ACIDS/PROTEIN HYDROLYS 30 ML LIQUID.PKT PO SCH ×2 (08:46→17:48)
[2021-08-05] MEDS: AMOX TR/POT CLAV 875MG/125MG TABLETS (FP) PO SCH ×2 (08:46→17:48)
[2021-08-05] MEDS ORDERED: LACTATED RINGERS SOLUTION 1,000 ML/1,000 ML INFUS.BAG IV SCH ×3 (09:30→20:37)
[2021-08-05] MEDS: VITAMIN A 10,000 UNITS (3000 MCG) CAPSULE PO SCH (09:37)
[2021-08-05] MEDS: PANTOPRAZOLE 40 MG TABLET PO SCH (09:37)
[2021-08-05] MEDS: ASPIRIN COATED 81 MG TABLET.EC PO SCH (09:37)
[2021-08-05] MEDS: POLYETHYLENE GLYCOL (HEALTHYLAX) 3350 17 GM PACKET PO SCH (09:37)
[2021-08-05] MEDS: ASCORBIC ACID 500 MG TABLET (FP) PO SCH ×2 (09:38→21:52)
[2021-08-05] MEDS: CHOLECALCIFEROL (VIT D3) 5000 UNITS (125 MCG) CAP PO SCH (09:38)
[2021-08-05] MEDS: MULTIVITAMINS THER W-MINERALS COMBO TABLET (FP) PO SCH (09:38)
[2021-08-05] MEDS: amLODIPine BESYLATE 2.5 MG TABLET (FP) PO SCH (09:47)
[2021-08-05] MEDS: TOBRAMYCIN 0.3% OPHTH OINT 3.5 GM OU SCH ×4 (09:48→21:51)
[2021-08-05] MEDS ORDERED: HEPARIN NA (PORCINE) 5,000 UNITS/ML 1ML VIAL ONE ×3 (10:10→13:57)
[2021-08-05] MEDS ORDERED: PAPAVERINE HCL 30 MG/1 ML 10 ML VIAL NR ONE (10:10)
[2021-08-05] MEDS ORDERED: THROMBIN (BOVINE) 5,000 UNIT VIAL TP ONE ×2 (10:11→14:40)
[2021-08-05] MEDS ORDERED: LIDOCAINE HCL/PF 2% SDV 5ML VIAL ONE (12:16)
[2021-08-05] MEDS ORDERED: PROPOFOL 20 ML ONE ×2 (12:16→12:17)
[2021-08-05] MEDS ORDERED: PHENYLEPHRINE HCL 10 MG/1 ML SINGLE DOSE VIAL ONE (12:30)
[2021-08-05] MEDS ORDERED: ETOMIDATE 20 MG/10 ML AMPUL IVPUSH ONE (13:10)
[2021-08-05] MEDS ORDERED: ROCURONIUM BROMIDE 50 MG/5 ML SYRINGE ONE (13:16)
[2021-08-05] MEDS ORDERED: ceFAZolin SODIUM 1 GM VIAL IVPB ONE (13:25)
[2021-08-05] MEDS ORDERED: ceFAZolin SODIUM 1 GM VIAL ONE (13:44)
[2021-08-05] MEDS ORDERED: DEXAMETHASONE SOD PHOSPHATE 4 MG/1 ML VIAL ONE (13:44)
[2021-08-05] MEDS ORDERED: POVIDONE-IODINE OINTMENT 10% - 28.4 GM TUBE ONE (15:33)
[2021-08-05] MEDS ORDERED: GLYCOPYRROLATE 0.2 MG/1 ML VIAL ONE (15:37)
[2021-08-05] MEDS ORDERED: NEOSTIGMINE METHYLSULFATE 0.5 MG/ML - 10 ML MDV ONE (15:37)
[2021-08-05] MEDS ORDERED: oxyCODONE HCL 5 MG TABLET PO PRN ×2 (16:12)
[2021-08-05] MEDS ORDERED: LACTATED RINGERS SOLUTION 1000 ML INFUS.BAG IV ONE ×2 (17:17→20:42)
[2021-08-05] MEDS ORDERED: SODIUM/POTASSIUM/SOD CHL (EYE WASH) 120 ML BOTTLE OU PRN (19:20)
[2021-08-05] MEDS: CHLORHEXIDINE GLUCONATE 4% CLEANSER FOR DECOLONIZATION TP SCH (21:51)
[2021-08-05] MEDS: ATORVASTATIN CA 80 MG TABLET (FP) PO SCH (21:51)
[2021-08-05] MEDS: MUPIROCIN 2% TOPICAL OINTMENT FOR DECOLONIZATION NS SCH (21:51)
[2021-08-05] MEDS: DOCUSATE SODIUM 100 MG CAPSULE (FP) PO SCH (21:51)
[2021-08-06] MEDS ORDERED: LACTATED RINGERS SOLUTION 1,000 ML/1,000 ML INFUS.BAG IV SCH (01:02)
[2021-08-06] MEDS: INSULIN SLIDING SCALE (NOVOLOG) 1 VIAL SQ SCH ×3 (06:13→19:34)
[2021-08-06] MEDS: SODIUM CHLORIDE 1 GM TABLET PO SCH ×3 (06:13→22:30)
[2021-08-06 07:33] LABS: BASO % 0.2 % (0-2.0); HEMATOCRIT 28.6 % (35.4-49); HEMOGLOBIN 9.4 GM/dL (11.7-16.9); LYMPH % 9.5 % (8-40); MCH 30.3 pg (25.7-33.7); MEAN CELL VOLUME 91.8 fl (80-96); MEAN PLT VOLUME 7.8 fl (7.5-11.1); MONO % 7.2 % (3.8-10.2); NEUT % 83.1 % (42.8-82.8); PLATELET COUNT 296 10^3/uL (134-434); RBC 3.11 M/mm3 (4.00-5.60); RDW 16.3 % (11.9-15.9); WHITE BLOOD COUNT 16.3 K/mm3 (4.0-10.0)
[2021-08-06 07:42] LABS: CALCIUM 8.3 mg/dL (8.5-10.1)
[2021-08-06 07:43] LABS: BLOOD UREA NITROGEN 32.1 mg/dL (7-18)
[2021-08-06 07:46] LABS: CREATININE 1.1 mg/dL (0.55-1.3)
[2021-08-06] MEDS ORDERED: AMOX TR/POT CLAV 875MG/125MG TABLETS (FP) PO SCH (08:00)
[2021-08-06] MEDS ORDERED: ACETAMINOPHEN 325 MG TABLET (FP) PO PRN (09:10)
[2021-08-06] MEDS: AMINO ACIDS/PROTEIN HYDROLYS 30 ML LIQUID.PKT PO SCH ×2 (09:37→19:26)
[2021-08-06] MEDS: VITAMIN A 10,000 UNITS (3000 MCG) CAPSULE PO SCH (09:44)
[2021-08-06] MEDS: POLYETHYLENE GLYCOL (HEALTHYLAX) 3350 17 GM PACKET PO SCH (09:45)
[2021-08-06] MEDS: ASPIRIN COATED 81 MG TABLET.EC PO SCH (09:45)
[2021-08-06] MEDS: MULTIVITAMINS THER W-MINERALS COMBO TABLET (FP) PO SCH (09:47)
[2021-08-06] MEDS: PANTOPRAZOLE 40 MG TABLET PO SCH (09:47)
[2021-08-06] MEDS: ASCORBIC ACID 500 MG TABLET (FP) PO SCH ×2 (09:48→21:27)
[2021-08-06] MEDS: CHOLECALCIFEROL (VIT D3) 5000 UNITS (125 MCG) CAP PO SCH (09:49)
[2021-08-06] MEDS: RIVAROXABAN 2.5 MG TABLET PO SCH ×2 (09:49→22:30)
[2021-08-06] MEDS ORDERED: amLODIPine BESYLATE 2.5 MG TABLET (FP) PO SCH (10:00)
[2021-08-06] MEDS: MUPIROCIN 2% TOPICAL OINTMENT FOR DECOLONIZATION NS SCH ×2 (10:05→21:25)
[2021-08-06] MEDS: TOBRAMYCIN 0.3% OPHTH OINT 3.5 GM OU SCH ×4 (10:25→21:25)
[2021-08-06] MEDS ORDERED: IRON SUCROSE INJECTION 300 MG in SODIUM CHLORIDE 235 ML IVPB ONE (14:00)
[2021-08-06] MEDS: LACTATED RINGERS SOLUTION 1,000 ML/1,000 ML INFUS.BAG IV SCH (14:00)
[2021-08-06 15:24] VITALS: BMI 20.2
[2021-08-06 16:18] LABS: HEMATOCRIT 18.6 % (35.4-49); MCH 30.8 pg (25.7-33.7); MCHC 32.1 g/dl (32.0-35.9); MEAN CELL VOLUME 95.8 fl (80-96); MEAN PLT VOLUME 7.6 fl (7.5-11.1); PLATELET COUNT 178 10^3/uL (134-434); RBC 1.94 M/mm3 (4.00-5.60); RDW 16.5 % (11.9-15.9); WHITE BLOOD COUNT 8.2 K/mm3 (4.0-10.0)
[2021-08-06 16:54] LABS: EPI CELLS 20 /uL (0-25.1); HYALINE CASTS 6 /uL (0-3.1); URINE APPEARANCE TURBID; URINE BACTERIA 127 /uL (0-1359); URINE BILIRUBIN NEGATIVE (NEGATIVE); URINE COLOR YELLOW; URINE GLUCOSE (UA) NEGATIVE (NEGATIVE); URINE KETONE NEGATIVE (NEGATIVE); URINE LEUK ESTERASE 3+ (NEGATIVE); URINE NITRITE NEGATIVE (NEGATIVE); URINE PROTEIN 1+ (NEGATIVE); URINE RBC 2765 /uL (0-23.9); URINE UROBILINOGEN 0.2 mg/dL (0.2-1.0); URINE WBC 2405 /uL (0-25.8)
[2021-08-06 19:11] LABS: HEMATOCRIT 24.5 % (35.4-49); MCH 29.8 pg (25.7-33.7); MCHC 32.7 g/dl (32.0-35.9); MEAN CELL VOLUME 91.4 fl (80-96); MEAN PLT VOLUME 7.9 fl (7.5-11.1); PLATELET COUNT 250 10^3/uL (134-434); RBC 2.69 M/mm3 (4.00-5.60); RDW 16.4 % (11.9-15.9); WHITE BLOOD COUNT 11.7 K/mm3 (4.0-10.0)
[2021-08-06] MEDS: ATORVASTATIN CA 80 MG TABLET (FP) PO SCH (21:27)
[2021-08-06] MEDS: DOCUSATE SODIUM 100 MG CAPSULE (FP) PO SCH (21:27)
[2021-08-06] MEDS: CHLORHEXIDINE GLUCONATE 4% CLEANSER FOR DECOLONIZATION TP SCH (21:27)
[2021-08-07] MEDS: INSULIN SLIDING SCALE (NOVOLOG) 1 VIAL SQ SCH ×3 (06:26→18:16)
[2021-08-07] MEDS: SODIUM CHLORIDE 1 GM TABLET PO SCH ×3 (06:28→21:50)
[2021-08-07 06:49] LABS: BASO % 0.4 % (0-2.0); EOS % 2.3 % (0-4.5); HEMATOCRIT 24.5 % (35.4-49); HEMOGLOBIN 8.3 GM/dL (11.7-16.9); LYMPH % 13.2 % (8-40); MCH 31.4 pg (25.7-33.7); MCHC 33.7 g/dl (32.0-35.9); MEAN CELL VOLUME 93.2 fl (80-96); MEAN PLT VOLUME 7.9 fl (7.5-11.1); MONO % 8.6 % (3.8-10.2); NEUT % 75.5 % (42.8-82.8); PLATELET COUNT 219 10^3/uL (134-434); RBC 2.62 M/mm3 (4.00-5.60); RDW 16.3 % (11.9-15.9); WHITE BLOOD COUNT 11.6 K/mm3 (4.0-10.0)
[2021-08-07] MEDS ORDERED: LACTATED RINGERS SOLUTION 1000 ML INFUS.BAG IV ONE (08:31)
[2021-08-07] MEDS ORDERED: IRON SUCROSE INJECTION 300 MG in SODIUM CHLORIDE 235 ML IVPB ONE (09:23)
[2021-08-07] MEDS: AMINO ACIDS/PROTEIN HYDROLYS 30 ML LIQUID.PKT PO SCH ×2 (09:28→18:16)
[2021-08-07] MEDS: VITAMIN A 10,000 UNITS (3000 MCG) CAPSULE PO SCH (09:29)
[2021-08-07] MEDS: ASPIRIN COATED 81 MG TABLET.EC PO SCH (09:29)
[2021-08-07] MEDS: RIVAROXABAN 2.5 MG TABLET PO SCH ×2 (09:29→22:52)
[2021-08-07] MEDS: CHOLECALCIFEROL (VIT D3) 5000 UNITS (125 MCG) CAP PO SCH (09:29)
[2021-08-07] MEDS: PANTOPRAZOLE 40 MG TABLET PO SCH (09:29)
[2021-08-07] MEDS: POLYETHYLENE GLYCOL (HEALTHYLAX) 3350 17 GM PACKET PO SCH (09:30)
[2021-08-07] MEDS: ASCORBIC ACID 500 MG TABLET (FP) PO SCH ×2 (09:30→21:50)
[2021-08-07] MEDS: MULTIVITAMINS THER W-MINERALS COMBO TABLET (FP) PO SCH (09:31)
[2021-08-07] MEDS: MUPIROCIN 2% TOPICAL OINTMENT FOR DECOLONIZATION NS SCH (09:32)
[2021-08-07] MEDS: TOBRAMYCIN 0.3% OPHTH OINT 3.5 GM OU SCH ×4 (09:33→22:10)
[2021-08-07] MEDS ORDERED: CEFTRIAXONE 1,000 GM in DEXTROSE 5%-WATER - 50 ML IVPB SCH (10:45)
[2021-08-07] MEDS ORDERED: CEFTRIAXONE 1 GM in DEXTROSE 5%-WATER - 50 ML IVPB SCH (12:30)
[2021-08-07] MEDS ORDERED: cefTRIAXone SODIUM 1 GM VIAL ONE (13:11)
[2021-08-07] MEDS ORDERED: DEXTROSE 5%-WATER - 50 ML IVPB ONE (13:11)
[2021-08-07] MEDS: LACTATED RINGERS SOLUTION 1,000 ML/1,000 ML INFUS.BAG IV SCH (14:43)
[2021-08-07] MEDS ORDERED: ACETAMINOPHEN 325 MG TABLET (FP) PO PRN (18:24)
[2021-08-07] MEDS ORDERED: LACTATED RINGERS SOLUTION 1,000 ML/1,000 ML INFUS.BAG IV SCH ×2 (18:24→20:14)
[2021-08-07] MEDS ORDERED: SODIUM/POTASSIUM/SOD CHL (EYE WASH) 120 ML BOTTLE OU PRN (18:24)
[2021-08-07] MEDS: DOCUSATE SODIUM 100 MG CAPSULE (FP) PO SCH (21:48)
[2021-08-07] MEDS: ATORVASTATIN CA 80 MG TABLET (FP) PO SCH (21:50)
[2021-08-08] MEDS: SODIUM CHLORIDE 1 GM TABLET PO SCH ×3 (05:16→21:33)
[2021-08-08] MEDS: LACTATED RINGERS SOLUTION 1,000 ML/1,000 ML INFUS.BAG IV SCH ×5 (09:00→19:31)
[2021-08-08] MEDS: INSULIN SLIDING SCALE (NOVOLOG) 1 VIAL SQ SCH ×3 (09:00→16:22)
[2021-08-08] MEDS ORDERED: cefTRIAXone SODIUM 1 GM VIAL ONE (09:50)
[2021-08-08] MEDS ORDERED: DEXTROSE 5%-WATER - 50 ML IVPB ONE (09:50)
[2021-08-08] MEDS: CEFTRIAXONE 1 GM in DEXTROSE 5%-WATER - 50 ML IVPB SCH (10:04)
[2021-08-08] MEDS: AMINO ACIDS/PROTEIN HYDROLYS 30 ML LIQUID.PKT PO SCH ×2 (10:05→17:19)
[2021-08-08] MEDS: ASCORBIC ACID 500 MG TABLET (FP) PO SCH ×2 (10:05→21:33)
[2021-08-08] MEDS: POLYETHYLENE GLYCOL (HEALTHYLAX) 3350 17 GM PACKET PO SCH (10:05)
[2021-08-08] MEDS: ASPIRIN COATED 81 MG TABLET.EC PO SCH (10:05)
[2021-08-08] MEDS: PANTOPRAZOLE 40 MG TABLET PO SCH (10:05)
[2021-08-08] MEDS: MULTIVITAMINS THER W-MINERALS COMBO TABLET (FP) PO SCH (10:05)
[2021-08-08] MEDS: TOBRAMYCIN 0.3% OPHTH OINT 3.5 GM OU SCH ×4 (10:06→22:29)
[2021-08-08] MEDS: CHOLECALCIFEROL (VIT D3) 5000 UNITS (125 MCG) CAP PO SCH (10:06)
[2021-08-08] MEDS: RIVAROXABAN 2.5 MG TABLET PO SCH ×2 (10:06→21:36)
[2021-08-08] MEDS: VITAMIN A 10,000 UNITS (3000 MCG) CAPSULE PO SCH (10:06)
[2021-08-08 12:23] LABS: BASO % 0.3 % (0-2.0); EOS % 2.3 % (0-4.5); HEMATOCRIT 31.2 % (35.4-49); HEMOGLOBIN 10.6 GM/dL (11.7-16.9); LYMPH % 18.4 % (8-40); MCH 29.3 pg (25.7-33.7); MEAN CELL VOLUME 86.2 fl (80-96); MEAN PLT VOLUME 7.7 fl (7.5-11.1); MONO % 9.8 % (3.8-10.2); NEUT % 69.2 % (42.8-82.8); PLATELET COUNT 217 10^3/uL (134-434); RBC 3.62 M/mm3 (4.00-5.60); RDW 17.7 % (11.9-15.9); WHITE BLOOD COUNT 9.8 K/mm3 (4.0-10.0)
[2021-08-08 12:44] LABS: CALCIUM 7.4 mg/dL (8.5-10.1)
[2021-08-08 12:45] LABS: BLOOD UREA NITROGEN 17.9 mg/dL (7-18)
[2021-08-08 12:48] LABS: CREATININE 0.7 mg/dL (0.55-1.3)
[2021-08-08] MEDS: DOCUSATE SODIUM 100 MG CAPSULE (FP) PO SCH (21:33)
[2021-08-08] MEDS: ATORVASTATIN CA 80 MG TABLET (FP) PO SCH (21:33)
[2021-08-09] MEDS: LACTATED RINGERS SOLUTION 1,000 ML/1,000 ML INFUS.BAG IV SCH ×3 (03:22→22:01)
[2021-08-09] MEDS: SODIUM CHLORIDE 1 GM TABLET PO SCH ×3 (05:52→22:00)
[2021-08-09] MEDS: INSULIN SLIDING SCALE (NOVOLOG) 1 VIAL SQ SCH ×3 (06:13→16:27)
[2021-08-09] MEDS ORDERED: cefTRIAXone SODIUM 1 GM VIAL ONE (09:02)
[2021-08-09] MEDS ORDERED: DEXTROSE 5%-WATER - 50 ML IVPB ONE (09:02)
[2021-08-09] MEDS: CEFTRIAXONE 1 GM in DEXTROSE 5%-WATER - 50 ML IVPB SCH (09:32)
[2021-08-09] MEDS: ASCORBIC ACID 500 MG TABLET (FP) PO SCH ×2 (09:33→21:59)
[2021-08-09] MEDS: PANTOPRAZOLE 40 MG TABLET PO SCH (09:33)
[2021-08-09] MEDS: CHOLECALCIFEROL (VIT D3) 5000 UNITS (125 MCG) CAP PO SCH (09:33)
[2021-08-09] MEDS: AMINO ACIDS/PROTEIN HYDROLYS 30 ML LIQUID.PKT PO SCH ×2 (09:33→17:16)
[2021-08-09] MEDS: RIVAROXABAN 2.5 MG TABLET PO SCH ×2 (09:33→21:59)
[2021-08-09] MEDS: ASPIRIN COATED 81 MG TABLET.EC PO SCH (09:34)
[2021-08-09] MEDS: MULTIVITAMINS THER W-MINERALS COMBO TABLET (FP) PO SCH (09:34)
[2021-08-09] MEDS: VITAMIN A 10,000 UNITS (3000 MCG) CAPSULE PO SCH (09:34)
[2021-08-09] MEDS: TOBRAMYCIN 0.3% OPHTH OINT 3.5 GM OU SCH ×4 (09:35→22:00)
[2021-08-09] MEDS: POLYETHYLENE GLYCOL (HEALTHYLAX) 3350 17 GM PACKET PO SCH (09:44)
[2021-08-09 10:18] LABS: BASO % 0.9 % (0-2.0); EOS % 3.5 % (0-4.5); HEMATOCRIT 34.8 % (35.4-49); HEMOGLOBIN 12.1 GM/dL (11.7-16.9); MCH 29.7 pg (25.7-33.7); MCHC 34.8 g/dl (32.0-35.9); MEAN CELL VOLUME 85.4 fl (80-96); MEAN PLT VOLUME 7.4 fl (7.5-11.1); MONO % 7.2 % (3.8-10.2); NEUT % 70.4 % (42.8-82.8); PLATELET COUNT 252 10^3/uL (134-434); RBC 4.07 M/mm3 (4.00-5.60); RDW 17.7 % (11.9-15.9); WHITE BLOOD COUNT 11.4 K/mm3 (4.0-10.0)
[2021-08-09 10:31] LABS: BLOOD UREA NITROGEN 18.4 mg/dL (7-18); CALCIUM 7.9 mg/dL (8.5-10.1)
[2021-08-09 10:34] LABS: CREATININE 0.6 mg/dL (0.55-1.3)
[2021-08-09] MEDS: DOCUSATE SODIUM 100 MG CAPSULE (FP) PO SCH (21:59)
[2021-08-09] MEDS: ATORVASTATIN CA 80 MG TABLET (FP) PO SCH (21:59)
[2021-08-10] MEDS: INSULIN SLIDING SCALE (NOVOLOG) 1 VIAL SQ SCH ×3 (06:50→17:01)
[2021-08-10] MEDS: SODIUM CHLORIDE 1 GM TABLET PO SCH ×3 (06:50→22:31)
[2021-08-10] MEDS: LACTATED RINGERS SOLUTION 1,000 ML/1,000 ML INFUS.BAG IV SCH ×2 (06:51→14:31)
[2021-08-10] MEDS: MULTIVITAMINS THER W-MINERALS COMBO TABLET (FP) PO SCH (10:29)
[2021-08-10] MEDS: RIVAROXABAN 2.5 MG TABLET PO SCH ×2 (10:30→22:32)
[2021-08-10] MEDS: ASCORBIC ACID 500 MG TABLET (FP) PO SCH ×2 (10:31→22:31)
[2021-08-10] MEDS: ASPIRIN COATED 81 MG TABLET.EC PO SCH (10:31)
[2021-08-10] MEDS: PANTOPRAZOLE 40 MG TABLET PO SCH (10:31)
[2021-08-10] MEDS: POLYETHYLENE GLYCOL (HEALTHYLAX) 3350 17 GM PACKET PO SCH (10:31)
[2021-08-10] MEDS: VITAMIN A 10,000 UNITS (3000 MCG) CAPSULE PO SCH (10:32)
[2021-08-10] MEDS: CHOLECALCIFEROL (VIT D3) 5000 UNITS (125 MCG) CAP PO SCH (10:32)
[2021-08-10] MEDS: AMINO ACIDS/PROTEIN HYDROLYS 30 ML LIQUID.PKT PO SCH ×2 (10:32→16:58)
[2021-08-10] MEDS: TOBRAMYCIN 0.3% OPHTH OINT 3.5 GM OU SCH ×4 (10:32→22:32)
[2021-08-10] MEDS: DOCUSATE SODIUM 100 MG CAPSULE (FP) PO SCH (22:32)
[2021-08-10] MEDS: ATORVASTATIN CA 80 MG TABLET (FP) PO SCH (22:32)
[2021-08-11] MEDS: LACTATED RINGERS SOLUTION 1,000 ML/1,000 ML INFUS.BAG IV SCH ×3 (01:31→21:14)
[2021-08-11] MEDS: SODIUM CHLORIDE 1 GM TABLET PO SCH ×3 (06:36→21:15)
[2021-08-11] MEDS: INSULIN SLIDING SCALE (NOVOLOG) 1 VIAL SQ SCH ×3 (06:36→18:19)
[2021-08-11] MEDS: ASCORBIC ACID 500 MG TABLET (FP) PO SCH ×2 (09:52→21:15)
[2021-08-11] MEDS: PANTOPRAZOLE 40 MG TABLET PO SCH (09:52)
[2021-08-11] MEDS: ASPIRIN COATED 81 MG TABLET.EC PO SCH (09:52)
[2021-08-11] MEDS: AMINO ACIDS/PROTEIN HYDROLYS 30 ML LIQUID.PKT PO SCH ×2 (09:53→18:26)
[2021-08-11] MEDS: RIVAROXABAN 2.5 MG TABLET PO SCH ×2 (09:53→21:18)
[2021-08-11] MEDS: VITAMIN A 10,000 UNITS (3000 MCG) CAPSULE PO SCH (09:54)
[2021-08-11] MEDS: POLYETHYLENE GLYCOL (HEALTHYLAX) 3350 17 GM PACKET PO SCH ×2 (09:54→11:14)
[2021-08-11] MEDS: TOBRAMYCIN 0.3% OPHTH OINT 3.5 GM OU SCH ×4 (09:54→21:15)
[2021-08-11] MEDS: MULTIVITAMINS THER W-MINERALS COMBO TABLET (FP) PO SCH (09:54)
[2021-08-11] MEDS: CHOLECALCIFEROL (VIT D3) 5000 UNITS (125 MCG) CAP PO SCH (09:55)
[2021-08-11] MEDS: DOCUSATE SODIUM 100 MG CAPSULE (FP) PO SCH (21:15)
[2021-08-11] MEDS: ATORVASTATIN CA 80 MG TABLET (FP) PO SCH (21:15)
[2021-08-12] MEDS: SODIUM CHLORIDE 1 GM TABLET PO SCH ×3 (06:22→21:52)
[2021-08-12] MEDS: INSULIN SLIDING SCALE (NOVOLOG) 1 VIAL SQ SCH ×3 (06:22→16:28)
[2021-08-12] MEDS: AMINO ACIDS/PROTEIN HYDROLYS 30 ML LIQUID.PKT PO SCH ×2 (08:56→17:39)
[2021-08-12] MEDS: ZINC SULFATE 220 MG CAPSULE (FP) PO SCH (10:44)
[2021-08-12] MEDS: MULTIVITAMINS THER W-MINERALS COMBO TABLET (FP) PO SCH (10:44)
[2021-08-12] MEDS: ASPIRIN COATED 81 MG TABLET.EC PO SCH (10:44)
[2021-08-12] MEDS: PANTOPRAZOLE 40 MG TABLET PO SCH (10:44)
[2021-08-12] MEDS: RIVAROXABAN 2.5 MG TABLET PO SCH ×2 (10:45→21:56)
[2021-08-12] MEDS: ASCORBIC ACID 500 MG TABLET (FP) PO SCH ×2 (10:45→21:53)
[2021-08-12] MEDS: POLYETHYLENE GLYCOL (HEALTHYLAX) 3350 17 GM PACKET PO SCH (10:45)
[2021-08-12] MEDS: VITAMIN A 10,000 UNITS (3000 MCG) CAPSULE PO SCH (10:45)
[2021-08-12] MEDS: LACTATED RINGERS SOLUTION 1,000 ML/1,000 ML INFUS.BAG IV SCH (10:49)
[2021-08-12] MEDS: TOBRAMYCIN 0.3% OPHTH OINT 3.5 GM OU SCH ×4 (11:34→22:03)
[2021-08-12] MEDS: CHOLECALCIFEROL (VIT D3) 5000 UNITS (125 MCG) CAP PO SCH (11:36)
[2021-08-12] MEDS: DOCUSATE SODIUM 100 MG CAPSULE (FP) PO SCH (21:52)
[2021-08-12] MEDS: ATORVASTATIN CA 80 MG TABLET (FP) PO SCH (21:52)
[2021-08-13] MEDS: SODIUM CHLORIDE 1 GM TABLET PO SCH ×3 (06:06→23:36)
[2021-08-13] MEDS: INSULIN SLIDING SCALE (NOVOLOG) 1 VIAL SQ SCH ×3 (06:07→18:02)
[2021-08-13 08:09] LABS: SARS-CoV-2 NAA Not Detected (Not Detected)
[2021-08-13] MEDS: AMINO ACIDS/PROTEIN HYDROLYS 30 ML LIQUID.PKT PO SCH ×2 (10:49→18:01)
[2021-08-13] MEDS: RIVAROXABAN 2.5 MG TABLET PO SCH (10:49)
[2021-08-13] MEDS: ASCORBIC ACID 500 MG TABLET (FP) PO SCH ×2 (10:50→23:37)
[2021-08-13] MEDS: VITAMIN A 10,000 UNITS (3000 MCG) CAPSULE PO SCH (10:50)
[2021-08-13] MEDS: MULTIVITAMINS THER W-MINERALS COMBO TABLET (FP) PO SCH (10:50)
[2021-08-13] MEDS: CHOLECALCIFEROL (VIT D3) 5000 UNITS (125 MCG) CAP PO SCH (10:50)
[2021-08-13] MEDS: PANTOPRAZOLE 40 MG TABLET PO SCH (10:50)
[2021-08-13] MEDS: ASPIRIN COATED 81 MG TABLET.EC PO SCH (10:50)
[2021-08-13] MEDS: TOBRAMYCIN 0.3% OPHTH OINT 3.5 GM OU SCH ×4 (10:50→23:39)
[2021-08-13] MEDS: ZINC SULFATE 220 MG CAPSULE (FP) PO SCH (10:50)
[2021-08-13] MEDS: POLYETHYLENE GLYCOL (HEALTHYLAX) 3350 17 GM PACKET PO SCH (13:32)
[2021-08-13] MEDS: ATORVASTATIN CA 80 MG TABLET (FP) PO SCH (23:37)
[2021-08-13] MEDS: DOCUSATE SODIUM 100 MG CAPSULE (FP) PO SCH (23:37)
[2021-08-14] MEDS: RIVAROXABAN 2.5 MG TABLET PO SCH ×3 (01:59→21:38)
[2021-08-14] MEDS: SODIUM CHLORIDE 1 GM TABLET PO SCH ×3 (05:30→21:38)
[2021-08-14] MEDS: INSULIN SLIDING SCALE (NOVOLOG) 1 VIAL SQ SCH ×3 (06:29→16:14)
[2021-08-14] MEDS: AMINO ACIDS/PROTEIN HYDROLYS 30 ML LIQUID.PKT PO SCH (09:42)
[2021-08-14] MEDS: ASPIRIN COATED 81 MG TABLET.EC PO SCH (09:42)
[2021-08-14] MEDS: ZINC SULFATE 220 MG CAPSULE (FP) PO SCH (09:42)
[2021-08-14] MEDS: MULTIVITAMINS THER W-MINERALS COMBO TABLET (FP) PO SCH (09:42)
[2021-08-14] MEDS: ASCORBIC ACID 500 MG TABLET (FP) PO SCH ×2 (09:42→21:38)
[2021-08-14] MEDS: PANTOPRAZOLE 40 MG TABLET PO SCH (09:42)
[2021-08-14] MEDS: VITAMIN A 10,000 UNITS (3000 MCG) CAPSULE PO SCH (09:43)
[2021-08-14] MEDS: CHOLECALCIFEROL (VIT D3) 5000 UNITS (125 MCG) CAP PO SCH (09:43)
[2021-08-14] MEDS: POLYETHYLENE GLYCOL (HEALTHYLAX) 3350 17 GM PACKET PO SCH (09:43)
[2021-08-14] MEDS: TOBRAMYCIN 0.3% OPHTH OINT 3.5 GM OU SCH ×4 (10:00→21:38)
[2021-08-14] MEDS: DOCUSATE SODIUM 100 MG CAPSULE (FP) PO SCH (21:37)
[2021-08-14] MEDS: ATORVASTATIN CA 80 MG TABLET (FP) PO SCH (21:38)
[2021-08-15] MEDS: INSULIN SLIDING SCALE (NOVOLOG) 1 VIAL SQ SCH ×3 (06:18→16:16)
[2021-08-15] MEDS: SODIUM CHLORIDE 1 GM TABLET PO SCH ×3 (06:18→21:48)
[2021-08-15] MEDS: AMINO ACIDS/PROTEIN HYDROLYS 30 ML LIQUID.PKT PO SCH (09:37)
[2021-08-15] MEDS: POLYETHYLENE GLYCOL (HEALTHYLAX) 3350 17 GM PACKET PO SCH (09:37)
[2021-08-15] MEDS: CHOLECALCIFEROL (VIT D3) 5000 UNITS (125 MCG) CAP PO SCH (09:38)
[2021-08-15] MEDS: RIVAROXABAN 2.5 MG TABLET PO SCH ×2 (09:38→21:48)
[2021-08-15] MEDS: MULTIVITAMINS THER W-MINERALS COMBO TABLET (FP) PO SCH (09:38)
[2021-08-15] MEDS: ZINC SULFATE 220 MG CAPSULE (FP) PO SCH (09:38)
[2021-08-15] MEDS: VITAMIN A 10,000 UNITS (3000 MCG) CAPSULE PO SCH (09:38)
[2021-08-15] MEDS: ASPIRIN COATED 81 MG TABLET.EC PO SCH (09:38)
[2021-08-15] MEDS: PANTOPRAZOLE 40 MG TABLET PO SCH (09:38)
[2021-08-15] MEDS: ASCORBIC ACID 500 MG TABLET (FP) PO SCH ×2 (09:40→21:48)
[2021-08-15] MEDS: TOBRAMYCIN 0.3% OPHTH OINT 3.5 GM OU SCH ×4 (09:45→21:48)
[2021-08-15] MEDS: DOCUSATE SODIUM 100 MG CAPSULE (FP) PO SCH (21:47)
[2021-08-15] MEDS: ATORVASTATIN CA 80 MG TABLET (FP) PO SCH (21:48)
[2021-08-16] MEDS: INSULIN SLIDING SCALE (NOVOLOG) 1 VIAL SQ SCH ×3 (06:04→17:40)
[2021-08-16] MEDS: SODIUM CHLORIDE 1 GM TABLET PO SCH ×3 (06:04→22:11)
[2021-08-16] MEDS: POLYETHYLENE GLYCOL (HEALTHYLAX) 3350 17 GM PACKET PO SCH (11:10)
[2021-08-16] MEDS: ASCORBIC ACID 500 MG TABLET (FP) PO SCH ×2 (11:11→22:12)
[2021-08-16] MEDS: ZINC SULFATE 220 MG CAPSULE (FP) PO SCH (11:11)
[2021-08-16] MEDS: MULTIVITAMINS THER W-MINERALS COMBO TABLET (FP) PO SCH (11:11)
[2021-08-16] MEDS: CHOLECALCIFEROL (VIT D3) 5000 UNITS (125 MCG) CAP PO SCH (11:11)
[2021-08-16] MEDS: RIVAROXABAN 2.5 MG TABLET PO SCH ×2 (11:11→22:12)
[2021-08-16] MEDS: PANTOPRAZOLE 40 MG TABLET PO SCH (11:11)
[2021-08-16] MEDS: ASPIRIN COATED 81 MG TABLET.EC PO SCH (11:11)
[2021-08-16] MEDS: TOBRAMYCIN 0.3% OPHTH OINT 3.5 GM OU SCH ×4 (11:12→22:13)
[2021-08-16] MEDS: AMINO ACIDS/PROTEIN HYDROLYS 30 ML LIQUID.PKT PO SCH (11:12)
[2021-08-16] MEDS: VITAMIN A 10,000 UNITS (3000 MCG) CAPSULE PO SCH (11:12)
[2021-08-16] MEDS: DOCUSATE SODIUM 100 MG CAPSULE (FP) PO SCH (22:11)
[2021-08-16] MEDS: ATORVASTATIN CA 80 MG TABLET (FP) PO SCH (22:11)
[2021-08-16 22:33] VITALS: BP 125/64; PULSE 67; TEMP 97.8
== END 2021-08-16 10:30 | DRG 253 ==
LOC: JER 14:52 → JERBED 15:46 → J4S 07-31 02:18 → J6S 08-04 21:07 → JICU 08-05 16:05 → J5S 08-07 18:03
PROVIDERS: ADMIT Internal Medicine; ATTEND Family Medicine
PROC: 03150JC Bypass Right Axillary Artery to Bilateral Lower Leg Artery with Synthetic Substitute, Open Approach (ICD-10-PCS; principal; 2021-08-05 13:03)
DX: E11.52 Type 2 diabetes mellitus with diabetic peripheral angiopathy with gangrene (principal); I70.268 Atherosclerosis of native arteries of extremities with gangrene, other extremity; I69.354 Hemiplegia and hemiparesis following cerebral infarction affecting left non-dominant side; L97.518 Non-pressure chronic ulcer of other part of right foot with other specified severity; M86.8X8 Other osteomyelitis, other site; E87.1 Hypo-osmolality and hyponatremia; I50.32 Chronic diastolic (congestive) heart failure; J98.11 Atelectasis; E11.69 Type 2 diabetes mellitus with other specified complication; I74.5 Embolism and thrombosis of iliac artery; I25.10 Atherosclerotic heart disease of native coronary artery without angina pectoris; J44.9 Chronic obstructive pulmonary disease, unspecified; E78.5 Hyperlipidemia, unspecified; F03.90 Unspecified dementia, unspecified severity, without behavioral disturbance, psychotic disturbance, mood disturbance, and anxiety; K21.9 Gastro-esophageal reflux disease without esophagitis; K59.00 Constipation, unspecified; D72.829 Elevated white blood cell count, unspecified; K57.90 Diverticulosis of intestine, part unspecified, without perforation or abscess without bleeding; E11.621 Type 2 diabetes mellitus with foot ulcer; R33.9 Retention of urine, unspecified; R94.31 Abnormal electrocardiogram [ECG] [EKG]; M62.81 Muscle weakness (generalized); I11.0 Hypertensive heart disease with heart failure; H10.33 Unspecified acute conjunctivitis, bilateral; L89.312 Pressure ulcer of right buttock, stage 2; D50.9 Iron deficiency anemia, unspecified; Z95.1 Presence of aortocoronary bypass graft; L89.322 Pressure ulcer of left buttock, stage 2
CPT/HCPCS: 36415; 36430; 71045-TC-FY; 75635-TC; 80048; 80053; 81003; 82728; 82962; 83036; 83540; 83550; 83605; 85025; 85027; 85610; 85651; 85730; 86140; 86850; 86900; 86901; 86922; 87040; 87077; 87086; 87186; 93005; 93010; 93306-TC; 93922; 93925-TC; 94010; 97161-GP; 99285-25; C9803-CS; J1644; J1756; P9058; Q9967; U0003; U0005

== ENCOUNTER 2021-10-27 12:50 | Inpatient (IN) | payer OTHER, BC ==
[2021-10-27] MEDS ORDERED: VANCOMYCIN 1 GM in D5W (PRE-DOCKED) 1,000 MG/250 ML IVPB ONE (14:45)
[2021-10-27] MEDS ORDERED: PIPERACILLIN/TAZOB 4.5 GM 4.5 GM in DEXTROSE 5%-WATER 100 ML IVPB ONE (14:45)
[2021-10-27 16:49] LABS: BASO % 0.3 % (0-2.0); EOS % 0.4 % (0-4.5); HEMATOCRIT 35.1 % (35.4-49); HEMOGLOBIN 11.5 GM/dL (11.7-16.9); LYMPH % 8.9 % (8-40); MCH 29.5 pg (25.7-33.7); MCHC 32.8 g/dl (32.0-35.9); MEAN CELL VOLUME 89.9 fl (80-96); MEAN PLT VOLUME 6.7 fl (7.5-11.1); MONO % 4.3 % (3.8-10.2); NEUT % 86.1 % (42.8-82.8); PLATELET COUNT 558 10^3/uL (134-434); RBC 3.91 M/mm3 (4.00-5.60); RDW 16.6 % (11.9-15.9); WHITE BLOOD COUNT 21.7 K/mm3 (4.0-10.0)
[2021-10-27] MEDS ORDERED: PIPERACILLIN/TAZOB 4.5 GM 4.5 GM/100 ML BAG IVPB ONE (16:57)
[2021-10-27 16:58] LABS: ALBUMIN 1.9 g/dl (3.4-5.0); CALCIUM 9.4 mg/dL (8.5-10.1)
[2021-10-27 17:02] LABS: CREATININE 0.8 mg/dL (0.55-1.3)
[2021-10-27 17:04] LABS: BILIRUBIN,TOTAL 0.7 mg/dL (0.2-1); TOT PROT 6.2 g/dl (6.4-8.2)
[2021-10-27 17:39] LABS: ERYTHROCYTE SEDIMENTATION RATE 89 mm/hr (0-20)
[2021-10-27 17:46] LABS: ANISOCYTOSIS 1+; MACROCYTOSIS 0
[2021-10-27] MEDS ORDERED: VANCOMYCIN 1 GRAM (PRE-DOCKED) 1,000 MG/250 ML BAG IVPB ONE (17:58)
[2021-10-27] MEDS ORDERED: ACETAMINOPHEN 325 MG TABLET (FP) PO PRN (20:11)
[2021-10-27] MEDS ORDERED: LACTATED RINGERS SOLUTION 1,000 ML/1,000 ML INFUS.BAG IV SCH (21:15)
[2021-10-27 21:21] LABS: LACTIC ACID 2.6 mmol/L (0.4-2.0)
[2021-10-27] MEDS: INSULIN SLIDING SCALE (NOVOLOG) 1 VIAL SQ SCH (21:38)
[2021-10-27] MEDS ORDERED: ARTIFICIAL TEARS (POLYVINYL ALCOHOL) OPTH DROPS OU PRN (22:00)
[2021-10-27] MEDS ORDERED: ATORVASTATIN CA 80 MG TABLET (FP) PO SCH (22:00)
[2021-10-27] MEDS ORDERED: PANTOPRAZOLE 40 MG TABLET PO ONE (22:38)
[2021-10-27] MEDS ORDERED: ZINC SULFATE 220 MG CAPSULE (FP) ONE (22:38)
[2021-10-27] MEDS ORDERED: APIXABAN 2.5 MG TABLET ONE (22:38)
[2021-10-27] MEDS ORDERED: ATORVASTATIN CA 80 MG TABLET (FP) ONE (22:38)
[2021-10-27] MEDS ORDERED: ASCORBIC ACID 500 MG TABLET (FP) ONE (22:39)
[2021-10-27] MEDS ORDERED: KCL 10 MEQ IVPB 10 MEQ/100 ML INFUS.BAG IVPB ONE (22:39)
[2021-10-27] MEDS: ASCORBIC ACID 500 MG TABLET (FP) PO SCH (23:10)
[2021-10-27] MEDS: APIXABAN 2.5 MG TABLET PO SCH (23:10)
[2021-10-27] MEDS: ZINC SULFATE 220 MG CAPSULE (FP) PO SCH (23:10)
[2021-10-27] MEDS: VITAMIN A 10,000 UNITS (3000 MCG) CAPSULE PO SCH (23:10)
[2021-10-27] MEDS: KCL 10 MEQ IVPB 10 MEQ/100 ML INFUS.BAG IVPB SCH (23:10)
[2021-10-27] MEDS: MULTIVITAMINS THER W-MINERALS COMBO TABLET (FP) PO SCH (23:10)
[2021-10-27] MEDS: PANTOPRAZOLE 40 MG TABLET PO SCH (23:10)
[2021-10-28] MEDS ORDERED: KCL 10 MEQ IVPB 10 MEQ/100 ML INFUS.BAG IVPB ONE (00:29)
[2021-10-28] MEDS: KCL 10 MEQ IVPB 10 MEQ/100 ML INFUS.BAG IVPB SCH ×2 (00:37→04:30)
[2021-10-28] MEDS: INSULIN SLIDING SCALE (NOVOLOG) 1 VIAL SQ SCH ×4 (06:28→21:22)
[2021-10-28] MEDS ORDERED: LACTATED RINGERS SOLUTION 1,000 ML/1,000 ML INFUS.BAG IV SCH (08:36)
[2021-10-28] MEDS: APIXABAN 2.5 MG TABLET PO SCH (09:16)
[2021-10-28] MEDS: AMINO ACIDS/PROTEIN HYDROLYS 30 ML LIQUID.PKT PO SCH ×2 (09:17→17:09)
[2021-10-28] MEDS: ZINC SULFATE 220 MG CAPSULE (FP) PO SCH (09:17)
[2021-10-28] MEDS: PANTOPRAZOLE 40 MG TABLET PO SCH (09:17)
[2021-10-28] MEDS: ASCORBIC ACID 500 MG TABLET (FP) PO SCH ×2 (09:17→21:22)
[2021-10-28] MEDS: MULTIVITAMINS THER W-MINERALS COMBO TABLET (FP) PO SCH (09:17)
[2021-10-28] MEDS ORDERED: CHOLECALCIFEROL (VIT D3) 5000 UNITS (125 MCG) CAP PO SCH (10:00)
[2021-10-28] MEDS ORDERED: SODIUM CHLORIDE 0.9%/KCL 20 MEQ/1,000 ML INFUS.BAG IV SCH ×2 (10:00→11:52)
[2021-10-28] MEDS ORDERED: POLYETHYLENE GLYCOL (HEALTHYLAX) 3350 17 GM PACKET PO SCH (10:00)
[2021-10-28] MEDS ORDERED: amLODIPine BESYLATE 2.5 MG TABLET (FP) PO SCH (10:00)
[2021-10-28] MEDS ORDERED: ASPIRIN COATED 81 MG TABLET.EC PO SCH (10:00)
[2021-10-28] MEDS: VITAMIN A 10,000 UNITS (3000 MCG) CAPSULE PO SCH (10:26)
[2021-10-28] MEDS ORDERED: INSULIN (NOVOLOG) ASPART 100 UNITS/ML 10ML VIAL ONE (11:31)
[2021-10-28 12:00] LABS: HEMOGLOBIN 8.8 GM/dL (11.7-16.9); MCH 29.4 pg (25.7-33.7); MCHC 32.5 g/dl (32.0-35.9); MEAN CELL VOLUME 90.6 fl (80-96); MEAN PLT VOLUME 6.9 fl (7.5-11.1); PLATELET COUNT 409 10^3/uL (134-434); RBC 2.98 M/mm3 (4.00-5.60); RDW 15.7 % (11.9-15.9); WHITE BLOOD COUNT 22.3 K/mm3 (4.0-10.0)
[2021-10-28 12:37] LABS: ANISOCYTOSIS 0; HELMET CELLS 0; HOWELL-JOLLY BODIES 0; MACROCYTOSIS 0; OVALOCYTE 0; ROULEAU 0; SICKELED CELLS 0; TARGET CELLS 0; TEAR DROP CELLS 0; TOXIC GRANULATION 0
[2021-10-28 12:42] LABS: ERYTHROCYTE SEDIMENTATION RATE 108 mm/hr (0-20)
[2021-10-28 12:50] LABS: CALCIUM 8.3 mg/dL (8.5-10.1)
[2021-10-28 12:51] LABS: BLOOD UREA NITROGEN 24.5 mg/dL (7-18); CREATININE 0.9 mg/dL (0.55-1.3)
[2021-10-28 12:52] LABS: BILIRUBIN,TOTAL 0.6 mg/dL (0.2-1)
[2021-10-28 12:53] LABS: TOT PROT 4.9 g/dl (6.4-8.2)
[2021-10-28] MEDS ORDERED: VANCOMYCIN 1 GRAM (PRE-DOCKED) 1,000 MG/250 ML BAG IVPB SCH (13:00)
[2021-10-28] MEDS ORDERED: PIPERACILLIN/TAZOBACTAM 3.375 GM VIAL IVPB ONE ×2 (13:26→16:55)
[2021-10-28] MEDS ORDERED: DEXTROSE 5%-WATER - 50 ML IVPB ONE ×2 (13:27→16:56)
[2021-10-28] MEDS: PIPERACILLIN/TAZOB 3.375 GM 3.375 GM in DEXTROSE 5%-WATER - 50 ML IVPB SCH ×2 (14:05→17:09)
[2021-10-28 14:26] LABS: ALBUMIN 1.5 g/dl (3.4-5.0)
[2021-10-28] MEDS: HEPARIN NA (PORCINE) 5,000 UNITS/ML 1ML VIAL SQ SCH ×2 (14:30→21:22)
[2021-10-28] MEDS: MUPIROCIN 2% TOPICAL OINTMENT FOR DECOLONIZATION NS SCH ×2 (15:28→21:22)
[2021-10-28] MEDS: COLLAGENASE CLOSTRIDIUM HIST. 30 GRAMS TUBE TP SCH (15:30)
[2021-10-28] MEDS ORDERED: LACTATED RINGERS SOLUTION 1,000 ML/1,000 ML INFUS.BAG IV STA (15:40)
[2021-10-28] MEDS ORDERED: LACTATED RINGERS SOLUTION 1,000 ML/1,000 ML INFUS.BAG IV ONE (16:43)
[2021-10-28] MEDS ORDERED: ARTIFICIAL TEARS (POLYVINYL ALCOHOL) OPTH DROPS OU PRN (20:13)
[2021-10-28] MEDS: SODIUM CHLORIDE 0.9%/KCL 20 MEQ/1,000 ML INFUS.BAG IV SCH (21:21)
[2021-10-28] MEDS: ATORVASTATIN CA 80 MG TABLET (FP) PO SCH (21:22)
[2021-10-28] MEDS: CHLORHEXIDINE GLUCONATE 4% CLEANSER FOR DECOLONIZATION TP SCH (21:22)
[2021-10-29] MEDS ORDERED: VANCOMYCIN 1 GRAM (PRE-DOCKED) 1,000 MG/250 ML BAG IVPB SCH (01:00)
[2021-10-29] MEDS: PIPERACILLIN/TAZOB 3.375 GM 3.375 GM in DEXTROSE 5%-WATER - 50 ML IVPB SCH ×3 (02:00→18:22)
[2021-10-29] MEDS ORDERED: PIPERACILLIN/TAZOBACTAM 3.375 GM VIAL IVPB ONE ×3 (03:25→18:04)
[2021-10-29] MEDS ORDERED: DEXTROSE 5%-WATER - 50 ML IVPB ONE ×3 (03:26→18:04)
[2021-10-29] MEDS: INSULIN SLIDING SCALE (NOVOLOG) 1 VIAL SQ SCH ×4 (06:44→21:42)
[2021-10-29] MEDS: HEPARIN NA (PORCINE) 5,000 UNITS/ML 1ML VIAL SQ SCH ×2 (06:45→13:19)
[2021-10-29 08:00] LABS: BASO % 0.1 % (0-2.0); HEMATOCRIT 28.9 % (35.4-49); HEMOGLOBIN 9.6 GM/dL (11.7-16.9); MCH 30.3 pg (25.7-33.7); MCHC 33.4 g/dl (32.0-35.9); MEAN CELL VOLUME 90.9 fl (80-96); MEAN PLT VOLUME 7.2 fl (7.5-11.1); MONO % 5.1 % (3.8-10.2); NEUT % 83.8 % (42.8-82.8); PLATELET COUNT 425 10^3/uL (134-434); RBC 3.18 M/mm3 (4.00-5.60)
[2021-10-29 08:26] LABS: MAGNESIUM 1.7 mg/dL (1.8-2.4)
[2021-10-29 08:33] LABS: ALBUMIN 1.5 g/dl (3.4-5.0); BLOOD UREA NITROGEN 21.2 mg/dL (7-18); CALCIUM 7.9 mg/dL (8.5-10.1)
[2021-10-29 08:36] LABS: CREATININE 0.7 mg/dL (0.55-1.3)
[2021-10-29 08:38] LABS: BILIRUBIN,TOTAL 0.6 mg/dL (0.2-1); TOT PROT 4.9 g/dl (6.4-8.2)
[2021-10-29 08:39] LABS: PHOSPHOROUS 3.2 mg/dL (2.5-4.9)
[2021-10-29] MEDS ORDERED: LACTATED RINGERS SOLUTION 1,000 ML/1,000 ML INFUS.BAG IV STA (10:13)
[2021-10-29] MEDS: MUPIROCIN 2% TOPICAL OINTMENT FOR DECOLONIZATION NS SCH ×2 (10:21→21:42)
[2021-10-29] MEDS: AMINO ACIDS/PROTEIN HYDROLYS 30 ML LIQUID.PKT PO SCH ×2 (10:21→18:22)
[2021-10-29] MEDS: CHOLECALCIFEROL (VIT D3) 5000 UNITS (125 MCG) CAP PO SCH (10:22)
[2021-10-29] MEDS: MULTIVITAMINS THER W-MINERALS COMBO TABLET (FP) PO SCH (10:22)
[2021-10-29] MEDS: ASCORBIC ACID 500 MG TABLET (FP) PO SCH ×2 (10:22→21:42)
[2021-10-29] MEDS: PANTOPRAZOLE 40 MG TABLET PO SCH (10:22)
[2021-10-29] MEDS: ZINC SULFATE 220 MG CAPSULE (FP) PO SCH (10:22)
[2021-10-29] MEDS: VITAMIN A 10,000 UNITS (3000 MCG) CAPSULE PO SCH (10:22)
[2021-10-29] MEDS: POLYETHYLENE GLYCOL (HEALTHYLAX) 3350 17 GM PACKET PO SCH (10:22)
[2021-10-29] MEDS: COLLAGENASE CLOSTRIDIUM HIST. 30 GRAMS TUBE TP SCH (10:22)
[2021-10-29] MEDS ORDERED: MAGNESIUM SULF 50% (8.12 MEQ/2 ML-1 GM VIAL) IVPB ONE (10:42)
[2021-10-29] MEDS ORDERED: DAPTOMYCIN 400 MG in SODIUM CHLORIDE 50 ML IVPB ONE ×2 (11:09→12:00)
[2021-10-29] MEDS: SODIUM CHLORIDE 0.9%/KCL 20 MEQ/1,000 ML INFUS.BAG IV SCH ×2 (21:31→23:28)
[2021-10-29] MEDS: CHLORHEXIDINE GLUCONATE 4% CLEANSER FOR DECOLONIZATION TP SCH (21:42)
[2021-10-29] MEDS: ATORVASTATIN CA 80 MG TABLET (FP) PO SCH (21:42)
[2021-10-30] MEDS ORDERED: PIPERACILLIN/TAZOBACTAM 3.375 GM VIAL IVPB ONE ×3 (01:00→15:44)
[2021-10-30] MEDS: PIPERACILLIN/TAZOB 3.375 GM 3.375 GM in DEXTROSE 5%-WATER - 50 ML IVPB SCH ×3 (02:04→17:27)
[2021-10-30] MEDS: INSULIN SLIDING SCALE (NOVOLOG) 1 VIAL SQ SCH ×4 (06:21→22:00)
[2021-10-30] MEDS: SODIUM CHLORIDE 0.9%/KCL 20 MEQ/1,000 ML INFUS.BAG IV SCH ×2 (06:50→22:11)
[2021-10-30] MEDS ORDERED: LACTATED RINGERS SOLUTION 1,000 ML/1,000 ML INFUS.BAG IV ONE (07:37)
[2021-10-30 07:38] LABS: INR 1.34 (0.83-1.09); PROTHROMBIN TIME (PATIENT) 15.4 SEC (9.7-13.0)
[2021-10-30 07:40] LABS: BASO % 0.7 % (0-2.0); EOS % 2.4 % (0-4.5); HEMATOCRIT 28.7 % (35.4-49); HEMOGLOBIN 9.6 GM/dL (11.7-16.9); LYMPH % 9.8 % (8-40); MCH 30.2 pg (25.7-33.7); MCHC 33.5 g/dl (32.0-35.9); MEAN CELL VOLUME 90.1 fl (80-96); MEAN PLT VOLUME 7.2 fl (7.5-11.1); MONO % 5.6 % (3.8-10.2); NEUT % 81.5 % (42.8-82.8); PLATELET COUNT 407 10^3/uL (134-434); RBC 3.18 M/mm3 (4.00-5.60); RDW 15.8 % (11.9-15.9); WHITE BLOOD COUNT 15.1 K/mm3 (4.0-10.0)
[2021-10-30 07:41] LABS: ACTIVATED PTT 34.8 SECONDS (25.2-36.5)
[2021-10-30 08:25] LABS: BLOOD UREA NITROGEN 17.8 mg/dL (7-18)
[2021-10-30 08:27] LABS: CALCIUM 7.9 mg/dL (8.5-10.1)
[2021-10-30 08:28] LABS: ALBUMIN 1.4 g/dl (3.4-5.0)
[2021-10-30 08:29] LABS: MAGNESIUM 2.1 mg/dL (1.8-2.4); PHOSPHOROUS 3.4 mg/dL (2.5-4.9)
[2021-10-30 08:31] LABS: BILIRUBIN,TOTAL 0.5 mg/dL (0.2-1); CREATININE 0.7 mg/dL (0.55-1.3); TOT PROT 4.8 g/dl (6.4-8.2)
[2021-10-30] MEDS ORDERED: DEXTROSE 5%-WATER - 50 ML IVPB ONE ×2 (10:37→15:44)
[2021-10-30] MEDS: AMINO ACIDS/PROTEIN HYDROLYS 30 ML LIQUID.PKT PO SCH ×2 (11:05→17:27)
[2021-10-30] MEDS: PANTOPRAZOLE 40 MG TABLET PO SCH (11:09)
[2021-10-30] MEDS: POLYETHYLENE GLYCOL (HEALTHYLAX) 3350 17 GM PACKET PO SCH (11:09)
[2021-10-30] MEDS: CHOLECALCIFEROL (VIT D3) 5000 UNITS (125 MCG) CAP PO SCH (11:09)
[2021-10-30] MEDS: COLLAGENASE CLOSTRIDIUM HIST. 30 GRAMS TUBE TP SCH (11:09)
[2021-10-30] MEDS: MULTIVITAMINS THER W-MINERALS COMBO TABLET (FP) PO SCH (11:09)
[2021-10-30] MEDS: VITAMIN A 10,000 UNITS (3000 MCG) CAPSULE PO SCH (11:09)
[2021-10-30] MEDS: VANCOMYCIN 1 GRAM (PRE-DOCKED) 1,000 MG/250 ML BAG IVPB SCH ×2 (11:09→22:03)
[2021-10-30] MEDS: ZINC SULFATE 220 MG CAPSULE (FP) PO SCH (11:09)
[2021-10-30] MEDS: MUPIROCIN 2% TOPICAL OINTMENT FOR DECOLONIZATION NS SCH ×2 (11:09→21:59)
[2021-10-30] MEDS: ASCORBIC ACID 500 MG TABLET (FP) PO SCH ×2 (11:10→22:01)
[2021-10-30] MEDS: ACETAMINOPHEN 325 MG TABLET (FP) PO PRN (17:27)
[2021-10-30] MEDS ORDERED: LACTATED RINGERS SOLUTION 1000 ML INFUS.BAG IV ONE ×2 (18:18→21:15)
[2021-10-30] MEDS: CHLORHEXIDINE GLUCONATE 4% CLEANSER FOR DECOLONIZATION TP SCH (21:59)
[2021-10-30] MEDS: ATORVASTATIN CA 80 MG TABLET (FP) PO SCH (22:01)
[2021-10-31] MEDS ORDERED: DEXTROSE 5%-WATER - 50 ML IVPB ONE ×3 (03:43→18:00)
[2021-10-31] MEDS ORDERED: PIPERACILLIN/TAZOBACTAM 3.375 GM VIAL IVPB ONE ×3 (03:43→17:59)
[2021-10-31] MEDS: PIPERACILLIN/TAZOB 3.375 GM 3.375 GM in DEXTROSE 5%-WATER - 50 ML IVPB SCH ×3 (03:50→18:06)
[2021-10-31] MEDS: INSULIN SLIDING SCALE (NOVOLOG) 1 VIAL SQ SCH ×4 (06:33→21:29)
[2021-10-31] MEDS: SODIUM CHLORIDE 0.9%/KCL 20 MEQ/1,000 ML INFUS.BAG IV SCH ×2 (07:06→21:29)
[2021-10-31 07:22] LABS: BASO % 0.4 % (0-2.0); EOS % 3.2 % (0-4.5); HEMATOCRIT 30.5 % (35.4-49); LYMPH % 9.3 % (8-40); MCH 29.7 pg (25.7-33.7); MCHC 32.8 g/dl (32.0-35.9); MEAN CELL VOLUME 90.6 fl (80-96); MEAN PLT VOLUME 7.3 fl (7.5-11.1); MONO % 6.1 % (3.8-10.2); PLATELET COUNT 401 10^3/uL (134-434); RBC 3.37 M/mm3 (4.00-5.60); RDW 15.9 % (11.9-15.9); WHITE BLOOD COUNT 14.9 K/mm3 (4.0-10.0)
[2021-10-31 07:53] LABS: ALBUMIN 1.4 g/dl (3.4-5.0); CALCIUM 7.9 mg/dL (8.5-10.1)
[2021-10-31 07:54] LABS: BLOOD UREA NITROGEN 13.6 mg/dL (7-18)
[2021-10-31 07:56] LABS: CREATININE 0.5 mg/dL (0.55-1.3)
[2021-10-31 07:58] LABS: BILIRUBIN,TOTAL 0.6 mg/dL (0.2-1); TOT PROT 4.9 g/dl (6.4-8.2)
[2021-10-31] MEDS: MULTIVITAMINS THER W-MINERALS COMBO TABLET (FP) PO SCH (09:41)
[2021-10-31] MEDS: ASCORBIC ACID 500 MG TABLET (FP) PO SCH ×2 (09:41→21:30)
[2021-10-31] MEDS: ZINC SULFATE 220 MG CAPSULE (FP) PO SCH (09:41)
[2021-10-31] MEDS: PANTOPRAZOLE 40 MG TABLET PO SCH (09:41)
[2021-10-31] MEDS: VANCOMYCIN 1 GRAM (PRE-DOCKED) 1,000 MG/250 ML BAG IVPB SCH ×2 (09:42→21:30)
[2021-10-31] MEDS: POLYETHYLENE GLYCOL (HEALTHYLAX) 3350 17 GM PACKET PO SCH (09:42)
[2021-10-31] MEDS: MUPIROCIN 2% TOPICAL OINTMENT FOR DECOLONIZATION NS SCH ×2 (09:43→21:46)
[2021-10-31] MEDS: AMINO ACIDS/PROTEIN HYDROLYS 30 ML LIQUID.PKT PO SCH ×2 (09:43→18:06)
[2021-10-31] MEDS: VITAMIN A 10,000 UNITS (3000 MCG) CAPSULE PO SCH (11:31)
[2021-10-31] MEDS: CHOLECALCIFEROL (VIT D3) 5000 UNITS (125 MCG) CAP PO SCH (11:31)
[2021-10-31] MEDS: COLLAGENASE CLOSTRIDIUM HIST. 30 GRAMS TUBE TP SCH (18:06)
[2021-10-31] MEDS: ATORVASTATIN CA 80 MG TABLET (FP) PO SCH (21:30)
[2021-10-31] MEDS: CHLORHEXIDINE GLUCONATE 4% CLEANSER FOR DECOLONIZATION TP SCH (21:46)
[2021-11-01] MEDS ORDERED: PIPERACILLIN/TAZOBACTAM 3.375 GM VIAL IVPB ONE ×3 (01:38→16:49)
[2021-11-01] MEDS ORDERED: DEXTROSE 5%-WATER - 50 ML IVPB ONE ×3 (01:39→16:49)
[2021-11-01] MEDS: PIPERACILLIN/TAZOB 3.375 GM 3.375 GM in DEXTROSE 5%-WATER - 50 ML IVPB SCH ×3 (01:44→17:02)
[2021-11-01] MEDS: INSULIN SLIDING SCALE (NOVOLOG) 1 VIAL SQ SCH ×4 (06:29→21:19)
[2021-11-01] MEDS: ZINC SULFATE 220 MG CAPSULE (FP) PO SCH (09:05)
[2021-11-01] MEDS: MULTIVITAMINS THER W-MINERALS COMBO TABLET (FP) PO SCH (09:05)
[2021-11-01] MEDS: VANCOMYCIN 1 GRAM (PRE-DOCKED) 1,000 MG/250 ML BAG IVPB SCH (09:05)
[2021-11-01] MEDS: CHOLECALCIFEROL (VIT D3) 5000 UNITS (125 MCG) CAP PO SCH (09:05)
[2021-11-01] MEDS: AMINO ACIDS/PROTEIN HYDROLYS 30 ML LIQUID.PKT PO SCH ×2 (09:05→16:56)
[2021-11-01] MEDS: VITAMIN A 10,000 UNITS (3000 MCG) CAPSULE PO SCH (09:05)
[2021-11-01] MEDS: PANTOPRAZOLE 40 MG TABLET PO SCH (09:05)
[2021-11-01] MEDS: POLYETHYLENE GLYCOL (HEALTHYLAX) 3350 17 GM PACKET PO SCH (09:05)
[2021-11-01] MEDS: ASCORBIC ACID 500 MG TABLET (FP) PO SCH ×2 (09:05→21:19)
[2021-11-01] MEDS: MUPIROCIN 2% TOPICAL OINTMENT FOR DECOLONIZATION NS SCH ×2 (09:06→21:18)
[2021-11-01] MEDS: COLLAGENASE CLOSTRIDIUM HIST. 30 GRAMS TUBE TP SCH (09:06)
[2021-11-01] MEDS: SODIUM CHLORIDE 0.9%/KCL 20 MEQ/1,000 ML INFUS.BAG IV SCH ×2 (15:40→21:18)
[2021-11-01] MEDS ORDERED: ALBUTEROL SO4 0.083% IH SOL 2.5 MG/3 ML VIAL.NEB. NEB STA (16:40)
[2021-11-01] MEDS ORDERED: ALBUTEROL SO4 0.083% IH SOL 2.5 MG/3 ML VIAL.NEB. NEB ONE (16:40)
[2021-11-01] MEDS: ACETAMINOPHEN 325 MG TABLET (FP) PO PRN (17:02)
[2021-11-01] MEDS: ATORVASTATIN CA 80 MG TABLET (FP) PO SCH (21:19)
[2021-11-01] MEDS: CHLORHEXIDINE GLUCONATE 4% CLEANSER FOR DECOLONIZATION TP SCH (21:19)
[2021-11-02] MEDS ORDERED: DEXTROSE 5%-WATER - 50 ML IVPB ONE ×3 (01:27→17:24)
[2021-11-02] MEDS ORDERED: PIPERACILLIN/TAZOBACTAM 3.375 GM VIAL IVPB ONE ×3 (01:27→17:24)
[2021-11-02] MEDS: PIPERACILLIN/TAZOB 3.375 GM 3.375 GM in DEXTROSE 5%-WATER - 50 ML IVPB SCH ×3 (01:47→17:39)
[2021-11-02 06:45] LABS: BASO % 0.4 % (0-2.0); EOS % 2.5 % (0-4.5); HEMATOCRIT 26.4 % (35.4-49); HEMOGLOBIN 8.7 GM/dL (11.7-16.9); LYMPH % 10.3 % (8-40); MCH 29.9 pg (25.7-33.7); MCHC 33.1 g/dl (32.0-35.9); MEAN CELL VOLUME 90.4 fl (80-96); MEAN PLT VOLUME 7.3 fl (7.5-11.1); MONO % 4.6 % (3.8-10.2); NEUT % 82.2 % (42.8-82.8); PLATELET COUNT 373 10^3/uL (134-434); RBC 2.92 M/mm3 (4.00-5.60); RDW 16.1 % (11.9-15.9); WHITE BLOOD COUNT 17.3 K/mm3 (4.0-10.0)
[2021-11-02] MEDS: INSULIN SLIDING SCALE (NOVOLOG) 1 VIAL SQ SCH ×4 (07:06→22:00)
[2021-11-02 07:11] LABS: CALCIUM 7.6 mg/dL (8.5-10.1)
[2021-11-02 07:12] LABS: BLOOD UREA NITROGEN 11.6 mg/dL (7-18)
[2021-11-02 07:15] LABS: CREATININE 0.6 mg/dL (0.55-1.3)
[2021-11-02] MEDS ORDERED: LACTATED RINGERS SOLUTION 1,000 ML/1,000 ML INFUS.BAG IV SCH (08:00)
[2021-11-02] MEDS ORDERED: LACTATED RINGERS SOLUTION 1,000 ML/1,000 ML INFUS.BAG IV ONE (08:03)
[2021-11-02] MEDS: HEPARIN NA (PORCINE) 5,000 UNITS/ML 1ML VIAL SQ SCH ×3 (08:44→21:45)
[2021-11-02] MEDS: AMINO ACIDS/PROTEIN HYDROLYS 30 ML LIQUID.PKT PO SCH ×2 (08:44→17:39)
[2021-11-02] MEDS: KCL 10 MEQ IVPB 10 MEQ/100 ML INFUS.BAG IVPB SCH ×3 (08:44→12:20)
[2021-11-02] MEDS: PANTOPRAZOLE 40 MG TABLET PO SCH (10:50)
[2021-11-02] MEDS: ZINC SULFATE 220 MG CAPSULE (FP) PO SCH (10:50)
[2021-11-02] MEDS: ASCORBIC ACID 500 MG TABLET (FP) PO SCH ×2 (10:51→21:46)
[2021-11-02] MEDS: COLLAGENASE CLOSTRIDIUM HIST. 30 GRAMS TUBE TP SCH (10:52)
[2021-11-02] MEDS: MUPIROCIN 2% TOPICAL OINTMENT FOR DECOLONIZATION NS SCH (10:52)
[2021-11-02] MEDS: MULTIVITAMINS THER W-MINERALS COMBO TABLET (FP) PO SCH (10:52)
[2021-11-02] MEDS: ASPIRIN 81 MG CHEWABLE TABLETS PO SCH (10:52)
[2021-11-02] MEDS: VANCOMYCIN 1 GRAM (PRE-DOCKED) 1,000 MG/250 ML BAG IVPB SCH (10:53)
[2021-11-02] MEDS: CHOLECALCIFEROL (VIT D3) 5000 UNITS (125 MCG) CAP PO SCH (10:58)
[2021-11-02] MEDS: VITAMIN A 10,000 UNITS (3000 MCG) CAPSULE PO SCH (10:58)
[2021-11-02] MEDS: POLYETHYLENE GLYCOL (HEALTHYLAX) 3350 17 GM PACKET PO SCH (15:22)
[2021-11-02] MEDS: SODIUM CHLORIDE 0.9%/KCL 20 MEQ/1,000 ML INFUS.BAG IV SCH (20:07)
[2021-11-02] MEDS: CHLORHEXIDINE GLUCONATE 4% CLEANSER FOR DECOLONIZATION TP SCH (21:46)
[2021-11-02] MEDS: ATORVASTATIN CA 80 MG TABLET (FP) PO SCH (21:46)
[2021-11-03] MEDS ORDERED: DEXTROSE 5%-WATER - 50 ML IVPB ONE ×3 (01:47→16:49)
[2021-11-03] MEDS ORDERED: PIPERACILLIN/TAZOBACTAM 3.375 GM VIAL IVPB ONE ×3 (01:47→16:49)
[2021-11-03] MEDS: PIPERACILLIN/TAZOB 3.375 GM 3.375 GM in DEXTROSE 5%-WATER - 50 ML IVPB SCH ×3 (02:40→18:19)
[2021-11-03] MEDS: HEPARIN NA (PORCINE) 5,000 UNITS/ML 1ML VIAL SQ SCH ×3 (06:45→21:37)
[2021-11-03 07:24] LABS: BASO % 0.3 % (0-2.0); EOS % 2.6 % (0-4.5); HEMATOCRIT 27.6 % (35.4-49); LYMPH % 11.9 % (8-40); MCH 29.5 pg (25.7-33.7); MCHC 32.6 g/dl (32.0-35.9); MEAN CELL VOLUME 90.7 fl (80-96); MEAN PLT VOLUME 7.2 fl (7.5-11.1); MONO % 4.5 % (3.8-10.2); NEUT % 80.7 % (42.8-82.8); PLATELET COUNT 393 10^3/uL (134-434); RBC 3.05 M/mm3 (4.00-5.60); WHITE BLOOD COUNT 17.7 K/mm3 (4.0-10.0)
[2021-11-03] MEDS: INSULIN SLIDING SCALE (NOVOLOG) 1 VIAL SQ SCH ×4 (07:30→21:37)
[2021-11-03 07:54] LABS: BLOOD UREA NITROGEN 10.4 mg/dL (7-18); CALCIUM 7.6 mg/dL (8.5-10.1)
[2021-11-03 07:58] LABS: CREATININE 0.6 mg/dL (0.55-1.3)
[2021-11-03] MEDS: POLYETHYLENE GLYCOL (HEALTHYLAX) 3350 17 GM PACKET PO SCH (11:08)
[2021-11-03] MEDS: MULTIVITAMINS THER W-MINERALS COMBO TABLET (FP) PO SCH (11:10)
[2021-11-03] MEDS: VITAMIN A 10,000 UNITS (3000 MCG) CAPSULE PO SCH (11:10)
[2021-11-03] MEDS: ASPIRIN 81 MG CHEWABLE TABLETS PO SCH (11:10)
[2021-11-03] MEDS: CHOLECALCIFEROL (VIT D3) 5000 UNITS (125 MCG) CAP PO SCH (11:10)
[2021-11-03] MEDS: ZINC SULFATE 220 MG CAPSULE (FP) PO SCH (11:11)
[2021-11-03] MEDS: AMINO ACIDS/PROTEIN HYDROLYS 30 ML LIQUID.PKT PO SCH ×2 (11:11→18:19)
[2021-11-03] MEDS: COLLAGENASE CLOSTRIDIUM HIST. 30 GRAMS TUBE TP SCH (11:11)
[2021-11-03] MEDS: ASCORBIC ACID 500 MG TABLET (FP) PO SCH ×2 (11:12→21:37)
[2021-11-03] MEDS: PANTOPRAZOLE 40 MG TABLET PO SCH (11:12)
[2021-11-03] MEDS: VANCOMYCIN 1 GRAM (PRE-DOCKED) 1,000 MG/250 ML BAG IVPB SCH (11:17)
[2021-11-03 15:31] VITALS: BMI 27.4
[2021-11-03] MEDS: SODIUM CHLORIDE 0.9%/KCL 20 MEQ/1,000 ML INFUS.BAG IV SCH (21:37)
[2021-11-03] MEDS: ATORVASTATIN CA 80 MG TABLET (FP) PO SCH (21:37)
[2021-11-03] MEDS: CHLORHEXIDINE GLUCONATE 4% CLEANSER FOR DECOLONIZATION TP SCH (21:37)
[2021-11-04] MEDS ORDERED: DEXTROSE 5%-WATER - 50 ML IVPB ONE ×3 (01:09→14:36)
[2021-11-04] MEDS ORDERED: PIPERACILLIN/TAZOBACTAM 3.375 GM VIAL IVPB ONE ×3 (01:09→14:36)
[2021-11-04] MEDS: PIPERACILLIN/TAZOB 3.375 GM 3.375 GM in DEXTROSE 5%-WATER - 50 ML IVPB SCH ×3 (02:37→18:33)
[2021-11-04] MEDS: HEPARIN NA (PORCINE) 5,000 UNITS/ML 1ML VIAL SQ SCH ×3 (06:47→21:41)
[2021-11-04] MEDS: INSULIN SLIDING SCALE (NOVOLOG) 1 VIAL SQ SCH ×4 (06:47→21:42)
[2021-11-04 07:23] LABS: BASO % 0.5 % (0-2.0); HEMATOCRIT 27.6 % (35.4-49); HEMOGLOBIN 9.2 GM/dL (11.7-16.9); LYMPH % 12.6 % (8-40); MCH 29.7 pg (25.7-33.7); MCHC 33.3 g/dl (32.0-35.9); MEAN CELL VOLUME 89.3 fl (80-96); MEAN PLT VOLUME 7.5 fl (7.5-11.1); MONO % 5.5 % (3.8-10.2); NEUT % 79.4 % (42.8-82.8); PLATELET COUNT 407 10^3/uL (134-434); RBC 3.09 M/mm3 (4.00-5.60); RDW 15.7 % (11.9-15.9); WHITE BLOOD COUNT 18.3 K/mm3 (4.0-10.0)
[2021-11-04] MEDS: AMINO ACIDS/PROTEIN HYDROLYS 30 ML LIQUID.PKT PO SCH ×2 (10:03→17:55)
[2021-11-04 10:05] LABS: CALCIUM 7.8 mg/dL (8.5-10.1)
[2021-11-04] MEDS: VITAMIN A 10,000 UNITS (3000 MCG) CAPSULE PO SCH (10:08)
[2021-11-04] MEDS: CHOLECALCIFEROL (VIT D3) 5000 UNITS (125 MCG) CAP PO SCH (10:08)
[2021-11-04] MEDS: ZINC SULFATE 220 MG CAPSULE (FP) PO SCH (10:08)
[2021-11-04] MEDS: ASCORBIC ACID 500 MG TABLET (FP) PO SCH ×2 (10:08→21:41)
[2021-11-04] MEDS: ASPIRIN 81 MG CHEWABLE TABLETS PO SCH (10:08)
[2021-11-04 10:09] LABS: CREATININE 0.6 mg/dL (0.55-1.3)
[2021-11-04] MEDS: MULTIVITAMINS THER W-MINERALS COMBO TABLET (FP) PO SCH (10:09)
[2021-11-04] MEDS: PANTOPRAZOLE 40 MG TABLET PO SCH (10:09)
[2021-11-04] MEDS: POLYETHYLENE GLYCOL (HEALTHYLAX) 3350 17 GM PACKET PO SCH (10:10)
[2021-11-04] MEDS: COLLAGENASE CLOSTRIDIUM HIST. 30 GRAMS TUBE TP SCH (10:11)
[2021-11-04] MEDS: VANCOMYCIN/WATER FOR INJ (PEG) 1,000 MG/200 ML BAG IVPB SCH (11:31)
[2021-11-04] MEDS: VANCOMYCIN 1 GRAM (PRE-DOCKED) 1,000 MG/250 ML BAG IVPB SCH (14:45)
[2021-11-04] MEDS ORDERED: LIDOCAINE HCL 1%, 10 MG/ML (20ML VIAL) ID ONE (15:45)
[2021-11-04] MEDS: SODIUM CHLORIDE 0.9%/KCL 20 MEQ/1,000 ML INFUS.BAG IV SCH (21:41)
[2021-11-04] MEDS: CHLORHEXIDINE GLUCONATE 4% CLEANSER FOR DECOLONIZATION TP SCH (21:41)
[2021-11-04] MEDS: ATORVASTATIN CA 80 MG TABLET (FP) PO SCH (21:41)
[2021-11-05] MEDS ORDERED: DEXTROSE 5%-WATER - 50 ML IVPB ONE ×3 (01:32→17:21)
[2021-11-05] MEDS ORDERED: PIPERACILLIN/TAZOBACTAM 3.375 GM VIAL IVPB ONE ×3 (01:32→17:21)
[2021-11-05] MEDS: PIPERACILLIN/TAZOB 3.375 GM 3.375 GM in DEXTROSE 5%-WATER - 50 ML IVPB SCH ×3 (01:38→17:45)
[2021-11-05] MEDS: SODIUM CHLORIDE 0.9%/KCL 20 MEQ/1,000 ML INFUS.BAG IV SCH ×2 (03:36→21:30)
[2021-11-05] MEDS: HEPARIN NA (PORCINE) 5,000 UNITS/ML 1ML VIAL SQ SCH ×3 (07:00→21:31)
[2021-11-05] MEDS: INSULIN SLIDING SCALE (NOVOLOG) 1 VIAL SQ SCH ×4 (07:01→21:48)
[2021-11-05] MEDS: AMINO ACIDS/PROTEIN HYDROLYS 30 ML LIQUID.PKT PO SCH ×2 (07:55→17:45)
[2021-11-05] MEDS: VITAMIN A 10,000 UNITS (3000 MCG) CAPSULE PO SCH (10:02)
[2021-11-05] MEDS: CHOLECALCIFEROL (VIT D3) 5000 UNITS (125 MCG) CAP PO SCH (10:02)
[2021-11-05] MEDS: POLYETHYLENE GLYCOL (HEALTHYLAX) 3350 17 GM PACKET PO SCH (10:03)
[2021-11-05] MEDS: ZINC SULFATE 220 MG CAPSULE (FP) PO SCH (10:04)
[2021-11-05] MEDS: COLLAGENASE CLOSTRIDIUM HIST. 30 GRAMS TUBE TP SCH (10:04)
[2021-11-05] MEDS: MULTIVITAMINS THER W-MINERALS COMBO TABLET (FP) PO SCH (10:04)
[2021-11-05] MEDS: ASCORBIC ACID 500 MG TABLET (FP) PO SCH ×2 (10:04→21:31)
[2021-11-05] MEDS: PANTOPRAZOLE 40 MG TABLET PO SCH (10:04)
[2021-11-05] MEDS: ASPIRIN 81 MG CHEWABLE TABLETS PO SCH (10:04)
[2021-11-05] MEDS: VANCOMYCIN/WATER FOR INJ (PEG) 1,000 MG/200 ML BAG IVPB SCH (12:06)
[2021-11-05] MEDS: ACETAMINOPHEN 325 MG TABLET (FP) PO PRN (14:23)
[2021-11-05] MEDS: ATORVASTATIN CA 80 MG TABLET (FP) PO SCH (21:31)
[2021-11-05] MEDS: CHLORHEXIDINE GLUCONATE 4% CLEANSER FOR DECOLONIZATION TP SCH (21:39)
[2021-11-06] MEDS ORDERED: DEXTROSE 5%-WATER - 50 ML IVPB ONE ×3 (02:43→17:05)
[2021-11-06] MEDS ORDERED: PIPERACILLIN/TAZOBACTAM 3.375 GM VIAL IVPB ONE ×3 (02:43→17:04)
[2021-11-06] MEDS: PIPERACILLIN/TAZOB 3.375 GM 3.375 GM in DEXTROSE 5%-WATER - 50 ML IVPB SCH ×3 (02:46→17:25)
[2021-11-06] MEDS: HEPARIN NA (PORCINE) 5,000 UNITS/ML 1ML VIAL SQ SCH ×3 (06:11→21:56)
[2021-11-06] MEDS: INSULIN SLIDING SCALE (NOVOLOG) 1 VIAL SQ SCH ×4 (06:11→22:01)
[2021-11-06] MEDS ORDERED: ARTIFICIAL TEARS (POLYVINYL ALCOHOL) OPTH DROPS OU PRN (06:57)
[2021-11-06] MEDS ORDERED: ACETAMINOPHEN 325 MG TABLET (FP) PO PRN (06:57)
[2021-11-06] MEDS: AMINO ACIDS/PROTEIN HYDROLYS 30 ML LIQUID.PKT PO SCH ×2 (08:05→17:25)
[2021-11-06] MEDS: ASPIRIN 81 MG CHEWABLE TABLETS PO SCH (10:13)
[2021-11-06] MEDS: POLYETHYLENE GLYCOL (HEALTHYLAX) 3350 17 GM PACKET PO SCH (10:14)
[2021-11-06] MEDS: PANTOPRAZOLE 40 MG TABLET PO SCH (10:15)
[2021-11-06] MEDS: ZINC SULFATE 220 MG CAPSULE (FP) PO SCH (10:15)
[2021-11-06] MEDS: MULTIVITAMINS THER W-MINERALS COMBO TABLET (FP) PO SCH (10:16)
[2021-11-06] MEDS: ASCORBIC ACID 500 MG TABLET (FP) PO SCH ×2 (10:16→22:01)
[2021-11-06] MEDS: VANCOMYCIN/WATER FOR INJ (PEG) 1,000 MG/200 ML BAG IVPB SCH (10:19)
[2021-11-06] MEDS: VITAMIN A 10,000 UNITS (3000 MCG) CAPSULE PO SCH (10:33)
[2021-11-06] MEDS: CHOLECALCIFEROL (VIT D3) 5000 UNITS (125 MCG) CAP PO SCH (10:34)
[2021-11-06] MEDS: COLLAGENASE CLOSTRIDIUM HIST. 30 GRAMS TUBE TP SCH (10:34)
[2021-11-06] MEDS: SODIUM CHLORIDE 0.9%/KCL 20 MEQ/1,000 ML INFUS.BAG IV SCH (11:23)
[2021-11-06 11:35] LABS: HEMATOCRIT 28.3 % (35.4-49); HEMOGLOBIN 9.3 GM/dL (11.7-16.9); MEAN CELL VOLUME 90.9 fl (80-96); MEAN PLT VOLUME 7.5 fl (7.5-11.1); PLATELET COUNT 427 10^3/uL (134-434); RBC 3.11 M/mm3 (4.00-5.60); RDW 15.8 % (11.9-15.9); WHITE BLOOD COUNT 21.6 K/mm3 (4.0-10.0)
[2021-11-06 11:58] LABS: ANISOCYTOSIS 0; CALCIUM 7.5 mg/dL (8.5-10.1); MACROCYTOSIS 0
[2021-11-06 11:59] LABS: BLOOD UREA NITROGEN 12.1 mg/dL (7-18)
[2021-11-06 12:02] LABS: CREATININE 0.6 mg/dL (0.55-1.3)
[2021-11-06] MEDS: ATORVASTATIN CA 80 MG TABLET (FP) PO SCH (22:00)
[2021-11-06] MEDS ORDERED: CHLORHEXIDINE GLUCONATE 4% CLEANSER FOR DECOLONIZATION TP SCH (22:00)
[2021-11-07] MEDS: KCL 10 MEQ IVPB 10 MEQ/100 ML INFUS.BAG IVPB SCH ×3 (01:00→14:30)
[2021-11-07] MEDS: SODIUM CHLORIDE 0.9%/KCL 20 MEQ/1,000 ML INFUS.BAG IV SCH ×3 (01:00→19:35)
[2021-11-07] MEDS ORDERED: DEXTROSE 5%-WATER - 50 ML IVPB ONE ×3 (01:02→17:41)
[2021-11-07] MEDS ORDERED: PIPERACILLIN/TAZOBACTAM 3.375 GM VIAL IVPB ONE ×3 (01:02→17:41)
[2021-11-07] MEDS: PIPERACILLIN/TAZOB 3.375 GM 3.375 GM in DEXTROSE 5%-WATER - 50 ML IVPB SCH ×3 (01:04→18:37)
[2021-11-07] MEDS ORDERED: LACTATED RINGERS SOLUTION 1,000 ML IV ONE (03:50)
[2021-11-07] MEDS: INSULIN SLIDING SCALE (NOVOLOG) 1 VIAL SQ SCH ×4 (06:43→22:30)
[2021-11-07] MEDS: HEPARIN NA (PORCINE) 5,000 UNITS/ML 1ML VIAL SQ SCH ×3 (06:43→22:31)
[2021-11-07] MEDS: AMINO ACIDS/PROTEIN HYDROLYS 30 ML LIQUID.PKT PO SCH ×2 (08:36→17:37)
[2021-11-07 09:12] LABS: BASO % 0.3 % (0-2.0); EOS % 2.3 % (0-4.5); HEMATOCRIT 23.8 % (35.4-49); HEMOGLOBIN 7.8 GM/dL (11.7-16.9); LYMPH % 11.1 % (8-40); MCH 29.7 pg (25.7-33.7); MCHC 32.8 g/dl (32.0-35.9); MEAN CELL VOLUME 90.6 fl (80-96); MEAN PLT VOLUME 7.3 fl (7.5-11.1); MONO % 4.4 % (3.8-10.2); NEUT % 81.9 % (42.8-82.8); PLATELET COUNT 430 10^3/uL (134-434); RBC 2.62 M/mm3 (4.00-5.60); RDW 15.9 % (11.9-15.9)
[2021-11-07 09:32] LABS: CALCIUM 7.2 mg/dL (8.5-10.1)
[2021-11-07 09:33] LABS: BLOOD UREA NITROGEN 9.9 mg/dL (7-18)
[2021-11-07 09:36] LABS: CREATININE 0.7 mg/dL (0.55-1.3)
[2021-11-07 10:23] LABS: ANISOCYTOSIS 1+; MACROCYTOSIS 0
[2021-11-07] MEDS: ZINC SULFATE 220 MG CAPSULE (FP) PO SCH (10:25)
[2021-11-07] MEDS: VITAMIN A 10,000 UNITS (3000 MCG) CAPSULE PO SCH (10:25)
[2021-11-07] MEDS: MULTIVITAMINS THER W-MINERALS COMBO TABLET (FP) PO SCH (10:25)
[2021-11-07] MEDS: POLYETHYLENE GLYCOL (HEALTHYLAX) 3350 17 GM PACKET PO SCH (10:25)
[2021-11-07] MEDS: ASCORBIC ACID 500 MG TABLET (FP) PO SCH ×2 (10:25→22:31)
[2021-11-07] MEDS: ASPIRIN 81 MG CHEWABLE TABLETS PO SCH (10:25)
[2021-11-07] MEDS: VANCOMYCIN/WATER FOR INJ (PEG) 1,000 MG/200 ML BAG IVPB SCH (10:26)
[2021-11-07] MEDS: CHOLECALCIFEROL (VIT D3) 5000 UNITS (125 MCG) CAP PO SCH (10:26)
[2021-11-07] MEDS: PANTOPRAZOLE 40 MG TABLET PO SCH (10:26)
[2021-11-07] MEDS: COLLAGENASE CLOSTRIDIUM HIST. 30 GRAMS TUBE TP SCH (10:26)
[2021-11-07] MEDS: ATORVASTATIN CA 80 MG TABLET (FP) PO SCH (22:31)
[2021-11-08] MEDS ORDERED: PIPERACILLIN/TAZOBACTAM 3.375 GM VIAL IVPB ONE ×3 (01:34→17:12)
[2021-11-08] MEDS ORDERED: DEXTROSE 5%-WATER - 50 ML IVPB ONE ×3 (01:35→17:12)
[2021-11-08] MEDS: PIPERACILLIN/TAZOB 3.375 GM 3.375 GM in DEXTROSE 5%-WATER - 50 ML IVPB SCH ×3 (02:24→18:04)
[2021-11-08 02:39] VITALS: RESP 20
[2021-11-08] MEDS: SODIUM CHLORIDE 0.9%/KCL 20 MEQ/1,000 ML INFUS.BAG IV SCH (05:52)
[2021-11-08] MEDS: HEPARIN NA (PORCINE) 5,000 UNITS/ML 1ML VIAL SQ SCH ×3 (06:41→21:36)
[2021-11-08] MEDS: INSULIN SLIDING SCALE (NOVOLOG) 1 VIAL SQ SCH ×4 (06:41→21:43)
[2021-11-08] MEDS ORDERED: SODIUM CHLORIDE 0.9%/KCL 20 MEQ/1,000 ML INFUS.BAG IV SCH (07:33)
[2021-11-08] MEDS ORDERED: ALBUTEROL SO4 2.5/IPRATROPIUM 0.5 INH SOL 3 ML VIAL.NEB. NEB ONE (08:23)
[2021-11-08] MEDS: AMINO ACIDS/PROTEIN HYDROLYS 30 ML LIQUID.PKT PO SCH ×2 (10:32→18:05)
[2021-11-08] MEDS: VITAMIN A 10,000 UNITS (3000 MCG) CAPSULE PO SCH (10:32)
[2021-11-08] MEDS: CHOLECALCIFEROL (VIT D3) 5000 UNITS (125 MCG) CAP PO SCH (10:32)
[2021-11-08] MEDS: MULTIVITAMINS THER W-MINERALS COMBO TABLET (FP) PO SCH (10:32)
[2021-11-08] MEDS: PANTOPRAZOLE 40 MG TABLET PO SCH (10:33)
[2021-11-08] MEDS: ASPIRIN 81 MG CHEWABLE TABLETS PO SCH (10:33)
[2021-11-08] MEDS: ASCORBIC ACID 500 MG TABLET (FP) PO SCH ×2 (10:33→21:36)
[2021-11-08] MEDS: ZINC SULFATE 220 MG CAPSULE (FP) PO SCH (10:34)
[2021-11-08] MEDS: POLYETHYLENE GLYCOL (HEALTHYLAX) 3350 17 GM PACKET PO SCH (10:34)
[2021-11-08] MEDS: COLLAGENASE CLOSTRIDIUM HIST. 30 GRAMS TUBE TP SCH (10:34)
[2021-11-08] MEDS ORDERED: FUROSEMIDE 40 MG/4 ML INJECTABLE VIAL IVPUSH ONE (12:44)
[2021-11-08] MEDS: ATORVASTATIN CA 80 MG TABLET (FP) PO SCH (21:36)
[2021-11-09] MEDS ORDERED: DEXTROSE 5%-WATER - 50 ML IVPB ONE ×3 (01:04→17:55)
[2021-11-09] MEDS ORDERED: PIPERACILLIN/TAZOBACTAM 3.375 GM VIAL IVPB ONE ×3 (01:04→17:55)
[2021-11-09] MEDS: PIPERACILLIN/TAZOB 3.375 GM 3.375 GM in DEXTROSE 5%-WATER - 50 ML IVPB SCH ×3 (01:06→17:58)
[2021-11-09] MEDS: ALBUTEROL SO4 2.5/IPRATROPIUM 0.5 INH SOL 3 ML VIAL.NEB. NEB PRN ×3 (01:30→11:12)
[2021-11-09] MEDS: HEPARIN NA (PORCINE) 5,000 UNITS/ML 1ML VIAL SQ SCH ×3 (06:30→22:13)
[2021-11-09] MEDS: INSULIN SLIDING SCALE (NOVOLOG) 1 VIAL SQ SCH ×4 (06:31→22:11)
[2021-11-09] MEDS ORDERED: FUROSEMIDE 40 MG/4 ML INJECTABLE VIAL IVPUSH ONE (07:41)
[2021-11-09] MEDS: AMINO ACIDS/PROTEIN HYDROLYS 30 ML LIQUID.PKT PO SCH ×2 (08:33→17:36)
[2021-11-09] MEDS: COLLAGENASE CLOSTRIDIUM HIST. 30 GRAMS TUBE TP SCH (10:35)
[2021-11-09] MEDS: POLYETHYLENE GLYCOL (HEALTHYLAX) 3350 17 GM PACKET PO SCH (10:36)
[2021-11-09] MEDS: PANTOPRAZOLE 40 MG TABLET PO SCH (10:36)
[2021-11-09] MEDS: ASCORBIC ACID 500 MG TABLET (FP) PO SCH ×2 (10:36→22:14)
[2021-11-09] MEDS: VITAMIN A 10,000 UNITS (3000 MCG) CAPSULE PO SCH (10:36)
[2021-11-09] MEDS: CHOLECALCIFEROL (VIT D3) 5000 UNITS (125 MCG) CAP PO SCH (10:36)
[2021-11-09] MEDS: ZINC SULFATE 220 MG CAPSULE (FP) PO SCH (10:36)
[2021-11-09] MEDS: ASPIRIN 81 MG CHEWABLE TABLETS PO SCH (10:36)
[2021-11-09] MEDS: MULTIVITAMINS THER W-MINERALS COMBO TABLET (FP) PO SCH (10:36)
[2021-11-09] MEDS: VANCOMYCIN/WATER FOR INJ (PEG) 1,000 MG/200 ML BAG IVPB SCH (10:38)
[2021-11-09] MEDS ORDERED: LACTATED RINGERS SOLUTION 1,000 ML/1,000 ML INFUS.BAG IV ONE (13:30)
[2021-11-09] MEDS: ATORVASTATIN CA 80 MG TABLET (FP) PO SCH (22:14)
[2021-11-10] MEDS ORDERED: DEXTROSE 5%-WATER - 50 ML IVPB ONE ×2 (02:00→10:18)
[2021-11-10] MEDS ORDERED: PIPERACILLIN/TAZOBACTAM 3.375 GM VIAL IVPB ONE ×2 (02:00→10:18)
[2021-11-10] MEDS: PIPERACILLIN/TAZOB 3.375 GM 3.375 GM in DEXTROSE 5%-WATER - 50 ML IVPB SCH ×2 (02:35→10:46)
[2021-11-10] MEDS: INSULIN SLIDING SCALE (NOVOLOG) 1 VIAL SQ SCH ×3 (06:15→17:20)
[2021-11-10] MEDS: HEPARIN NA (PORCINE) 5,000 UNITS/ML 1ML VIAL SQ SCH ×2 (06:15→15:52)
[2021-11-10] MEDS ORDERED: ALBUTEROL SO4 2.5/IPRATROPIUM 0.5 INH SOL 3 ML VIAL.NEB. NEB ONE (08:35)
[2021-11-10] MEDS: AMINO ACIDS/PROTEIN HYDROLYS 30 ML LIQUID.PKT PO SCH ×2 (08:59→18:05)
[2021-11-10 10:27] LABS: BASO % 1.4 % (0-2.0); EOS % 3.6 % (0-4.5); HEMATOCRIT 25.1 % (35.4-49); HEMOGLOBIN 8.2 GM/dL (11.7-16.9); LYMPH % 17.1 % (8-40); MCH 29.9 pg (25.7-33.7); MCHC 32.7 g/dl (32.0-35.9); MEAN CELL VOLUME 91.3 fl (80-96); MEAN PLT VOLUME 7.7 fl (7.5-11.1); MONO % 4.8 % (3.8-10.2); NEUT % 73.1 % (42.8-82.8); PLATELET COUNT 382 10^3/uL (134-434); RBC 2.75 M/mm3 (4.00-5.60); RDW 16.9 % (11.9-15.9); WHITE BLOOD COUNT 14.4 K/mm3 (4.0-10.0)
[2021-11-10 10:44] LABS: CALCIUM 7.7 mg/dL (8.5-10.1)
[2021-11-10] MEDS: PANTOPRAZOLE 40 MG TABLET PO SCH (10:44)
[2021-11-10] MEDS: ASPIRIN 81 MG CHEWABLE TABLETS PO SCH (10:44)
[2021-11-10] MEDS: CHOLECALCIFEROL (VIT D3) 5000 UNITS (125 MCG) CAP PO SCH (10:44)
[2021-11-10] MEDS: VITAMIN A 10,000 UNITS (3000 MCG) CAPSULE PO SCH (10:44)
[2021-11-10] MEDS: ASCORBIC ACID 500 MG TABLET (FP) PO SCH (10:44)
[2021-11-10 10:45] LABS: BLOOD UREA NITROGEN 7.8 mg/dL (7-18)
[2021-11-10 10:48] LABS: CREATININE 0.7 mg/dL (0.55-1.3)
[2021-11-10] MEDS: POLYETHYLENE GLYCOL (HEALTHYLAX) 3350 17 GM PACKET PO SCH (10:48)
[2021-11-10] MEDS: MULTIVITAMINS THER W-MINERALS COMBO TABLET (FP) PO SCH (10:57)
[2021-11-10] MEDS: ZINC SULFATE 220 MG CAPSULE (FP) PO SCH (10:57)
[2021-11-10] MEDS: COLLAGENASE CLOSTRIDIUM HIST. 30 GRAMS TUBE TP SCH (11:06)
[2021-11-10] MEDS ORDERED: MINERAL OIL/PET HY-PHL TOPICAL OINTMENT 454 GM JAR TP SCH ×2 (11:45→12:15)
[2021-11-10] MEDS ORDERED: POTASSIUM CHLORIDE TABS 20 MEQ TABLET.ER (FP) PO ONE (12:18)
[2021-11-10] MEDS ORDERED: INSULIN (NOVOLOG) ASPART 100 UNITS/ML 10ML VIAL ONE (12:24)
[2021-11-10] MEDS: VANCOMYCIN/WATER FOR INJ (PEG) 1,000 MG/200 ML BAG IVPB SCH ×2 (12:29→12:55)
[2021-11-10] MEDS: ALBUTEROL SO4 2.5/IPRATROPIUM 0.5 INH SOL 3 ML VIAL.NEB. NEB PRN (15:47)
[2021-11-10] MEDS ORDERED: AMOX TR/POT CLAV 500MG/125MG TABLETS (FP) PO SCH (17:30)
[2021-11-10 20:38] VITALS: BP 96/44; PULSE 78; TEMP 97.8
== END 2021-11-10 21:02 | DRG 853 ==
LOC: JER 12:50 → JERBED 17:36 → J6S 10-28 03:36 → JICU 10-28 14:47 → J8W 11-05 19:05
PROVIDERS: ADMIT Internal Medicine; ATTEND Internal Medicine
PROC: 0QBL0ZZ Excision of Right Tarsal, Open Approach (ICD-10-PCS; principal; 2021-11-04)
PROC: 02HV33Z Insertion of Infusion Device into Superior Vena Cava, Percutaneous Approach (ICD-10-PCS; 2021-11-10)
PROC: B548ZZA Ultrasonography of Superior Vena Cava, Guidance (ICD-10-PCS; 2021-11-10)
DX: A40.8 Other streptococcal sepsis (principal); I63.9 Cerebral infarction, unspecified; R53.2 Functional quadriplegia; R65.21 Severe sepsis with septic shock; I50.32 Chronic diastolic (congestive) heart failure; E87.2 Acidosis; R64 Cachexia; E11.52 Type 2 diabetes mellitus with diabetic peripheral angiopathy with gangrene; M86.8X7 Other osteomyelitis, ankle and foot; L89.610 Pressure ulcer of right heel, unstageable; L89.322 Pressure ulcer of left buttock, stage 2; J44.9 Chronic obstructive pulmonary disease, unspecified; D64.9 Anemia, unspecified; I25.10 Atherosclerotic heart disease of native coronary artery without angina pectoris; I11.0 Hypertensive heart disease with heart failure; E11.51 Type 2 diabetes mellitus with diabetic peripheral angiopathy without gangrene; L03.031 Cellulitis of right toe; E87.6 Hypokalemia; E11.621 Type 2 diabetes mellitus with foot ulcer; H10.33 Unspecified acute conjunctivitis, bilateral; E86.0 Dehydration; E88.09 Other disorders of plasma-protein metabolism, not elsewhere classified; R74.01 Elevation of levels of liver transaminase levels; K59.00 Constipation, unspecified; E77.8 Other disorders of glycoprotein metabolism; L97.519 Non-pressure chronic ulcer of other part of right foot with unspecified severity; E11.69 Type 2 diabetes mellitus with other specified complication; F03.90 Unspecified dementia, unspecified severity, without behavioral disturbance, psychotic disturbance, mood disturbance, and anxiety; E83.42 Hypomagnesemia; Z68.26 Body mass index [BMI] 26.0-26.9, adult
CPT/HCPCS: 36415; 36569; 71045-TC-FY; 73610-TC-RT-FY; 73630-TC-RT-FY; 75635-TC; 78315-TC; 80048; 80053; 82607; 82728; 82962; 83036; 83540; 83550; 83605; 83735; 84100; 85025; 85610; 85651; 85730; 86140; 86850; 86900; 86901; 87040; 87070; 87086; 87186; 87205; 87899; 93005; 93010; 93306-TC; 94640; 99285-25; A9503; C9803-CS; G0463-25; G0480; J0878; J1644; Q9967; U0003; U0005